=== PATIENT | female | born 1935 | race Caucasian/White ===

== ENCOUNTER 2017-02-01 23:44 | Inpatient (IN) | payer MEDICARE, OTHER ==
[2017-02-01] MEDS ORDERED: ALBUTEROL SULFATE 0.083% NEB 2.5 MG/3 ML AMPUL NEB ONE (23:56)
--- NOTE | 2017-02-02 00:01 | ER Document Report ---
ED General - General Stated Complaint: FLU LIKE SYMPTOMS Notes: Patient is a 81-year-old female who presents with complaint of cough congestion difficulty breathing. Symptoms started Saturday. Saturday she went to urgent care and had a positive influenza A swab. She says since and her breathing is greatly got worse. She does have a history of mechanical heart valve. She does have history of hypertension. She is on Coumadin. She is on carvedilol. When the months arrived she was restrained distress. She was working hard to breathe and her option patient was 90% on room air. They placed her on some oxygen and gave her DuoNeb treatments. They also gave her 125 mg Solu-Medrol. She did receive 4 mg Zofran. She also received 500 mL's of normal saline. She says she's been very weak and not eating or drinking much. She's been nauseous. No chest pain. No other complaints at this time. TRAVEL OUTSIDE OF THE [place] IN LAST 30 DAYS: No - Related Data Allergies/Adverse Reactions: lisinopril Allergy (Verified 02/02/17 01:47) Past Medical History - Social History Smoking Status: Never Smoker Frequency of alcohol use: None Drug Abuse: None Family History: Reviewed & Not Pertinent - Past Medical History Cardiac Medical History: Reports: Hx Hypertension Denies: Hx Heart Attack Pulmonary Medical History: Denies: Hx Asthma Neurological Medical History: Denies: Hx Cerebrovascular Accident, Hx Seizures GI Medical History: Denies: Hx Hepatitis, Hx Hiatal Hernia, Hx Ulcer Infectious Medical History: Denies: Hx Hepatitis Past Surgical History: Reports: Hx Open Heart Surgery - 2001, bypass x2 mechanical aortic valve. Denies: Hx Hysterectomy, Hx Mastectomy, Hx Pacemaker Review of Systems - Review of Systems Notes: My Normal Review Basic REVIEW OF SYSTEMS: CONSTITUTIONAL : Recent fevers EENT: Denies eye, ear, throat, or mouth pain or symptoms. Denies nasal or sinus congestion. CARDIOVASCULAR: Denies chest pain. RESPIRATORY: Wheezing and difficulty breathing and cough. GASTROINTESTINAL: Denies abdominal pain. Some vomiting Denies constipation. Last BM: GENITOURINARY: Denies difficulty urinating, painful urination, burning, frequency, or blood in urine.ds. LMP: MUSCULOSKELETAL: Denies neck or back pain or joint pain or swelling. SKIN: Denies rash or skin lesions. NEUROLOGICAL: Denies altered mental status or loss of consciousness. Denies headache. Denies weakness or paralysis or loss of use of either side. Denies problems with gait or speech. Denies sensory or motor loss. ALL OTHER SYSTEMS REVIEWED AND NEGATIVE. Physical Exam - Vital signs Vitals: Pulse Resp BP Pulse Ox 91 20 176/69 H 95 02/01/17 23:53 02/01/17 23:53 02/01/17 23:53 02/01/17 23:53 - Notes Notes: General Appearance: Well nourished, alert, cooperative, mild to moderate acute distress, no obvious discomfort. Vitals: reviewed, See vital signs table. Head: no swelling or tenderness to the head Eyes: PERRL, EOMI, Conjuctiva clear Mouth: No decreasd moisture Throat: No tonsillar inflammation, No airway obstruction, No lymphadenopathy Neck: Supple, no neck tenderness, No thyromegaly Lungs: Diffuse wheezing, some rales, No rhonci, mild accessory muscle use, fair air exchange bilaterally. Heart: Normal rate, Regular rythm, No murmur, no rub Abdomen: Normal BS, soft, No rigidity, No abdominal tenderness, No guarding, no rebound, no abdominal masses, no organomegaly Extremities: strength 5/5 in all extremities, good pulses in all extremities, no swelling or tenderness in the extremities, no edema. Skin: warm, dry, appropriate color, no rash Neuro: speech clear, oriented x 3, normal affect, responds appropriately to questions. Course - Vital Signs Vital signs: Temp Pulse Resp BP Pulse Ox 99.9 F 91 19 148/58 H 96 02/01/17 23:55 02/01/17 23:53 02/02/17 02:00 02/02/17 02:00 02/02/17 02:00 - Laboratory Result Diagrams: 02/02/17 00:21 02/02/17 00:21 Laboratory results interpreted by me: 02/02/17 02/02/17 02/02/17 00:21 00:21 00:21 Plt Count 121 L PT 30.4 H Sodium 127.6 L Chloride 93 L Glucose 121 H AST 37 H Total Protein 6.2 L - EKG Interpretation by Me Additional EKG results interpreted by me: 02/02/17 00:34 EKG is reviewed and interpreted by me. EKG shows normal sinus rhythm with a rate of [address] segment elevation or depression. HI interval is within normal range. QRS duration is prolonged. QTc interval is borderline. Old EKG for comparison is from 09/05/2015. - Transfer of Care Notes: 02/02/17 03:10 Patient's distress has improved. Her wheezing is gone but she still has rales. Her chest x-ray shows bilateral infiltrates. This could be international account representative of pulmonary edema, pneumonia, or early signs of impending ARDS being that she is recently influenza A positive. She is not requiring as much oxygen demand is when she first arrived. She appears to be improving. I have spoken with the hospitalist who agrees to admit the patient. I've given her a dose of Levaquin and Lasix. Dictation of this chart was performed using voice recognition software; therefore, there may be some unintended grammatical errors. Discharge - Discharge Clinical Impression: Respiratory distress Dyspnea Qualifiers: Dyspnea type: unspecified Qualified Code(s): R06.00 - Dyspnea, unspecified Condition: Stable Disposition: ADMITTED INPATIENT Admitting Provider: Hospitalist Unit Admitted: Telemetry
[2017-02-02] MEDS: MAGNESIUM SULFATE/D5W 100 ML IV SCH ×2 (00:13→00:20)
[2017-02-02] MEDS ORDERED: ONDANSETRON HCL INJ/PF 4 MG/2 ML SDV IV ONE (00:27)
[2017-02-02 00:39] LABS: ABSOLUTE LYMPHOCYTES (AUTO) 0.7 10^3/uL (0.5-4.7); ABSOLUTE MONOCYTES (AUTO) 0.5 10^3/uL (0.1-1.4); BASOPHILS % (AUTO) 0.4 % (0-2); EOSINOPHILS % (AUTO) 0.2 % (0-6); HEMATOCRIT 36.5 % (36.0-47.0); HEMOGLOBIN 12.5 g/dL (12.0-15.5); LYMPHOCYTES % (AUTO) 13.6 % (13-45); MEAN CORPUSCULAR HEMOGLOBIN 31.2 pg (27.0-33.4); MEAN CORPUSCULAR HGB CONC 34.3 g/dL (32.0-36.0); MEAN CORPUSCULAR VOLUME 91 fl (80-97); RED BLOOD COUNT 4.02 10^6/uL (3.72-5.28); RED CELL DISTRIBUTION WIDTH 12.5 % (11.5-14.0); SEGMENTED NEUTROPHILS % (AUTO) 76.8 % (42-78); WHITE BLOOD COUNT 5.2 10^3/uL (4.0-10.5)
[2017-02-02 00:45] LABS: PROTHROMBIN TIME 30.4 SEC (11.4-15.4)
[2017-02-02 00:48] LABS: ALANINE AMINOTRANSFERASE 35 U/L (9-52); ALBUMIN 3.6 g/dL (3.5-5.0); ALKALINE PHOSPHATASE 61 U/L (38-126); ANION GAP 9 (5-19); ASPARTATE AMINO TRANSFERASE 37 U/L (14-36); BILIRUBIN,DIRECT 0.1 mg/dL (0.0-0.4); BILIRUBIN,TOTAL 0.6 mg/dL (0.2-1.3); BLOOD UREA NITROGEN 13 mg/dL (7-20); CALCIUM 8.5 mg/dL (8.4-10.2); CARBON DIOXIDE 26 mmol/L (22-30); CHLORIDE 93 mmol/L (98-107); CREATININE RESULT 0.72 mg/dL (0.52-1.25); GLUCOSE 121 mg/dL (75-110); POTASSIUM 4.3 mmol/L (3.6-5.0); SODIUM 127.6 mmol/L (137-145); TOTAL PROTEIN 6.2 g/dL (6.3-8.2)
[2017-02-02] MEDS ORDERED: LEVOFLOXACIN 750 MG/D5W RTU 150 ML IV ONE (02:36)
[2017-02-02] MEDS ORDERED: FUROSEMIDE INJ/PF 20 MG/2 ML SDV IV ONE (03:10)
[2017-02-02] MEDS ORDERED: LORATADINE 10 MG TABLET PO ONE (03:16)
[2017-02-02 04:01] LABS: CREATINE KINASE MB 1.59 ng/mL (<4.55)
[2017-02-02 04:08] LABS: TROPONIN I 0.035 ng/mL
[2017-02-02] MEDS ORDERED: FLUTICASONE NASAL SPRAY 50 MCG/SPRY 120 SPRAY/16 GM ONE (04:24)
[2017-02-02] MEDS ORDERED: ACETAMINOPHEN 325 MG TABLET PO PRN (04:35)
[2017-02-02] MEDS ORDERED: IPRATROPIUM/ALBUTEROL 0.5-2.5 MG/3 ML AMPUL NEB PRN (04:35)
--- NOTE | 2017-02-02 05:34 | PDOC H&P ---
History of Present Illness Admission Date/PCP: 02/02/17 03:23 Patient complains of: Shortness of breath and cough History of Present Illness: ANGEL SMITH is a 81 year old female with a past medical history of aortic valve replacement on Coumadin, hypertension and dyslipidemia who had been her usual state of health until [facility] 4 days ago having diffuse arthralgias shortness of breath and cough sought evaluation at primary care where she was diagnosed with influenza A. she received medication for symptomatic management and is had improvement of her arthralgia but worsening of shortness of breath and cough prompting to seek evaluation emergency room where she's found to have a fever with tachypnea and an abnormal EKG with chronic changes of possible fibrosis and emphysema with atypical perihilar infiltrates. She started on empiric antibiotics albuterol and Atrovent referred to the hospitalist for admission. Patient denies previous pneumonia Past Medical History Cardiac Medical History: Reports: Atrial Fibrillation, Hypertension Denies: Myocardial Infarction Pulmonary Medical History: Denies: Asthma Neurological Medical History: Denies: Seizures GI Medical History: Denies: Hepatitis, Hiatal Hernia Hematology: Denies: Anemia, Sickle Cell Disease Past Surgical History Past Surgical History: Denies: Amputation, Hysterectomy, Mastectomy, Pacemaker Social History Information Source: Patient Lives with: Alone Smoking Status: Never Smoker Frequency of Alcohol Use: None Drugs: None - Advance Directive Resuscitation Status: Full Code Family History Family History: Hypertension Parental Family History Reviewed: Yes Children Family History Reviewed: Yes Sibling(s) Family History Reviewed.: Yes Medication/Allergy Home Medications: Aspirin [Aspirin 81 mg Chewable Tablet] 81 mg PO DAILY 11/23/11 Warfarin Sodium [Coumadin 5 Mg Tablet] 5 mg PO ASDIR PRN 11/23/11 Carvedilol [Coreg 25 mg Tablet] 1 tab PO Q12 03/28/14 Benzonatate 200 mg PO DAILY 02/02/17 Losartan Potassium 50 mg PO DAILY 02/02/17 Rosuvastatin Calcium [Crestor 5 mg Tablet] 1 tab PO DAILY 02/02/17 Warfarin Sodium [Coumadin 2.5 mg Tablet] 2.5 mg PO ASDIR PRN 02/02/17 Allergies/Adverse Reactions: lisinopril Allergy (Verified 02/02/17 01:47) Review of Systems Constitutional: PRESENT: as per HPI, anorexia, chills, fatigue, fever(s), night sweats, weakness Eyes: ABSENT: visual disturbances Ears: ABSENT: hearing changes Cardiovascular: ABSENT: chest pain, dyspnea on exertion, edema, orthropnea, palpitations Respiratory: PRESENT: cough, dyspnea, sputum Gastrointestinal: ABSENT: abdominal pain, constipation, diarrhea, hematemesis, hematochezia, nausea, vomiting Genitourinary: ABSENT: dysuria, hematuria Musculoskeletal: ABSENT: joint swelling Integumentary: ABSENT: rash, wounds Neurological: ABSENT: abnormal gait, abnormal speech, confusion, dizziness, focal weakness, syncope Psychiatric: ABSENT: anxiety, depression, homidical ideation, suicidal ideation Endocrine: ABSENT: cold intolerance, heat intolerance, polydipsia, polyuria Hematologic/Lymphatic: ABSENT: easy bleeding, easy bruising Physical Exam Vital Signs: Temp Pulse Resp BP Pulse Ox 99.9 F 91 21 H 148/52 H 97 02/01/17 23:55 02/01/17 23:53 02/02/17 05:01 02/02/17 05:01 02/02/17 05:02 General appearance: PRESENT: cooperative, mild distress, thin Head exam: PRESENT: atraumatic, normocephalic Eye exam: PRESENT: conjunctiva pink, EOMI, PERRLA. ABSENT: scleral icterus Ear exam: PRESENT: normal external ear exam Mouth exam: PRESENT: moist, tongue midline Neck exam: ABSENT: carotid bruit, JVD, lymphadenopathy, thyromegaly Respiratory exam: PRESENT: accessory muscle use, crackles, decreased breath sounds, prolonged expiratory phas, rales, retraction, symmetrical, tachypnea. ABSENT: chest wall tenderness, stridor, wheezes Cardiovascular exam: PRESENT: RRR, systolic murmur. ABSENT: diastolic murmur, rubs Pulses: PRESENT: normal dorsalis pedis pul Vascular exam: PRESENT: normal capillary refill GI/Abdominal exam: PRESENT: normal bowel sounds, soft. ABSENT: distended, guarding, mass, organolmegaly, rebound, tenderness Rectal exam: PRESENT: deferred Extremities exam: PRESENT: full ROM. ABSENT: calf tenderness, clubbing, pedal edema Neurological exam: PRESENT: alert, awake, oriented to person, oriented to place , oriented to time, oriented to situation, CN II-XII grossly intact. ABSENT: motor sensory deficit Psychiatric exam: PRESENT: appropriate affect, normal mood. ABSENT: homicidal ideation, suicidal ideation Skin exam: PRESENT: dry, intact, warm. ABSENT: cyanosis, rash Results Impressions: Chest X-Ray 02/02/17 00:00 IMPRESSION: The appearance of increased interstitial markings is nonspecific, and may represent atypical pneumonitis, early CHF pattern, pulmonary fibrosis, or other. Assessment & Plan - Diagnosis (1) Atypical pneumonia Is this a current diagnosis for this admission?: YesPlan: Empiric antibiotics with Levaquin albuterol Atrovent, symptomatic management with repeat CBC and chemistry consider CT imaging of the chest (2) Dyspnea Qualifiers: Dyspnea type: unspecified Qualified Code(s): R06.00 - Dyspnea, unspecified Is this a current diagnosis for this admission?: YesPlan: Secondary to #1 incentive spirometry and flutter valve (3) Respiratory distress Is this a current diagnosis for this admission?: YesPlan: Secondary to #1 concerned for atypical pneumonia versus pulmonary fibrosis consider imaging of the chest (4) Hyponatremia Is this a current diagnosis for this admission?: YesPlan: I'll give her a trial of normal saline I am suspicious for an underlying pulmonary pathology as a likely cause consider CT imaging of the chest - Time Time Spent: 30 to 50 Minutes - Inpatient Certification Medical Necessity: Need Close Monitoring Due to Risk of Patient Decompensation
[2017-02-02 06:17] LABS: ABSOLUTE LYMPHOCYTES (AUTO) 0.4 10^3/uL (0.5-4.7); ABSOLUTE MONOCYTES (AUTO) 0.1 10^3/uL (0.1-1.4); ABSOLUTE NEUT (AUTO) 3.2 10^3/uL (1.7-8.2); BASOPHILS % (AUTO) 0.5 % (0-2); EOSINOPHILS % (AUTO) 0.1 % (0-6); HEMATOCRIT 38.6 % (36.0-47.0); HEMOGLOBIN 13.5 g/dL (12.0-15.5); HGB HCT DIFFERENCE 1.9; LYMPHOCYTES % (AUTO) 11.4 % (13-45); MEAN CORPUSCULAR HEMOGLOBIN 31.5 pg (27.0-33.4); MEAN CORPUSCULAR VOLUME 90 fl (80-97); MONOCYTES % (AUTO) 3.3 % (3-13); RED BLOOD COUNT 4.28 10^6/uL (3.72-5.28); RED CELL DISTRIBUTION WIDTH 12.8 % (11.5-14.0); SEGMENTED NEUTROPHILS % (AUTO) 84.7 % (42-78); WHITE BLOOD COUNT 3.8 10^3/uL (4.0-10.5)
[2017-02-02] MEDS ORDERED: IPRATROPIUM/ALBUTEROL 0.5-2.5 MG/3 ML AMPUL NEB SCH (08:00)
[2017-02-02] MEDS: CARVEDILOL 12.5 MG TABLET PO SCH ×2 (08:24→16:11)
[2017-02-02 09:23] LABS: CREATINE KINASE MB 2.92 ng/mL (<4.55); TROPONIN I 0.057 ng/mL
[2017-02-02] MEDS ORDERED: LOSARTAN POTASSIUM 50 MG TABLET PO SCH (10:00)
[2017-02-02] MEDS ORDERED: ROSUVASTATIN CALCIUM PO SCH (10:00)
[2017-02-02] MEDS ORDERED: (PENDING PHARMACY ID) (Carvedilol [Coreg 25 Mg Tablet] 1 TAB) PO SCH (10:00)
[2017-02-02] MEDS ORDERED: ASPIRIN 81 MG TABLET, CHEWABLE PO SCH (10:00)
[2017-02-02] MEDS ORDERED: (PENDING PHARMACY ID) (Warfarin Sodium 5 MG) PO SCH (10:00)
[2017-02-02] MEDS: EPLERENONE 25 MG TABLET PO SCH (10:03)
[2017-02-02] MEDS: GUAIFENESIN 600 MG TABLET.SA PO SCH ×2 (10:04→21:42)
[2017-02-02] MEDS: FLUTICASONE NASAL SPRAY 50 MCG/SPRY 120 SPRAY/16 GM NASL SCH ×2 (10:05→21:42)
[2017-02-02] MEDS ORDERED: ALBUTEROL SULFATE 0.083% NEB 2.5 MG/3 ML AMPUL NEB PRN (10:54)
--- NOTE | 2017-02-02 11:04 | PDOC PROGRESS REPORT ---
Subjective Progress Note for:: 02/02/17 Subjective:: The patient was seen earlier today on rounds. Patient is out of bed to the bedside chair. The patient states she feels much improved in comparison to when she came in overnight. denies any history of chronic lung issues stating that she stop smoking in the early 80s when she last had influenza. Still unable to fully complete sentences. The patient denies any nausea, vomiting, diarrhea, dizziness, chest pain, heart palpitations, fevers, or chills. The patient has remained afebrile. Blood pressures have been in a good range. When prompted the patient voices no other concerns at this time. Review of systems: The rest of the review of systems is negative. Physical Exam Vital Signs: Temp Pulse Resp BP Pulse Ox 98.1 F 65 16 145/44 H 93 02/02/17 07:45 02/02/17 08:06 02/02/17 08:06 02/02/17 07:45 02/02/17 08:06 Intake & Output 01/31/17 02/01/17 02/02/17 23:59 23:59 23:59 Intake Total 3 Balance 3 Weight 52.7 kg General appearance: PRESENT: no acute distress, cooperative, well-developed, well-nourished Head exam: PRESENT: atraumatic, normocephalic Eye exam: PRESENT: conjunctiva pink, EOMI, PERRLA. ABSENT: scleral icterus Ear exam: PRESENT: normal external ear exam Mouth exam: PRESENT: moist, tongue midline Neck exam: ABSENT: carotid bruit, JVD, lymphadenopathy, thyromegaly Respiratory exam: PRESENT: decreased breath sounds, symmetrical, tachypnea, wheezes. ABSENT: rales, rhonchi, unlabored Cardiovascular exam: PRESENT: RRR. ABSENT: diastolic murmur, rubs, systolic murmur Pulses: PRESENT: normal dorsalis pedis pul Vascular exam: PRESENT: normal capillary refill GI/Abdominal exam: PRESENT: normal bowel sounds, soft. ABSENT: distended, guarding, mass, organolmegaly, rebound, tenderness Rectal exam: PRESENT: deferred Extremities exam: PRESENT: full ROM. ABSENT: calf tenderness, clubbing, pedal edema Neurological exam: PRESENT: alert, awake, oriented to person, oriented to place , oriented to time, oriented to situation, CN II-XII grossly intact. ABSENT: motor sensory deficit Psychiatric exam: PRESENT: appropriate affect, normal mood. ABSENT: homicidal ideation, suicidal ideation Skin exam: PRESENT: dry, intact, warm. ABSENT: cyanosis, rash Results Laboratory Results: Labs- Last Values WBC 3.8 10^3/uL (4.0-10.5) L 02/02/17 06:00 RBC 4.28 10^6/uL (3.72-5.28) 02/02/17 06:00 Hgb 13.5 g/dL (12.0-15.5) 02/02/17 06:00 Hct 38.6 % (36.0-47.0) 02/02/17 06:00 MCV 90 fl (80-97) 02/02/17 06:00 MCH 31.5 pg (27.0-33.4) 02/02/17 06:00 MCHC 35.0 g/dL (32.0-36.0) 02/02/17 06:00 RDW 12.8 % (11.5-14.0) 02/02/17 06:00 Plt Count 124 10^3/uL (150-450) L 02/02/17 06:00 Seg Neutrophils % 84.7 % (42-78) H 02/02/17 06:00 Lymphocytes % 11.4 % (13-45) L 02/02/17 06:00 Monocytes % 3.3 % (3-13) 02/02/17 06:00 Eosinophils % 0.1 % (0-6) 02/02/17 06:00 Basophils % 0.5 % (0-2) 02/02/17 06:00 Absolute Neutrophils 3.2 10^3/uL (1.7-8.2) 02/02/17 06:00 Absolute Lymphocytes 0.4 10^3/uL (0.5-4.7) L 02/02/17 06:00 Absolute Monocytes 0.1 10^3/uL (0.1-1.4) 02/02/17 06:00 Absolute Eosinophils 0.0 10^3/uL (0.0-0.6) 02/02/17 06:00 Absolute Basophils 0.0 10^3/uL (0.0-0.2) 02/02/17 06:00 ESR 40 mm/hr (0-30) H 02/02/17 06:00 PT 30.4 SEC (11.4-15.4) H 02/02/17 00:21 INR 2.76 02/02/17 00:21 Sodium 127.6 mmol/L (137-145) L 02/02/17 00:21 Potassium 4.3 mmol/L (3.6-5.0) 02/02/17 00:21 Chloride 93 mmol/L (98-107) L 02/02/17 00:21 Carbon Dioxide 26 mmol/L (22-30) 02/02/17 00:21 Anion Gap 9 (5-19) 02/02/17 00:21 BUN 13 mg/dL (7-20) 02/02/17 00:21 Creatinine 0.72 mg/dL (0.52-1.25) 02/02/17 00:21 Est GFR ( Amer) > 60 (>60) 02/02/17 00:21 Est GFR (Non-Af Amer) > 60 (>60) 02/02/17 00:21 Glucose 121 mg/dL (75-110) H 02/02/17 00:21 Calcium 8.5 mg/dL (8.4-10.2) 02/02/17 00:21 Total Bilirubin 0.6 mg/dL (0.2-1.3) 02/02/17 00:21 Direct Bilirubin 0.1 mg/dL (0.0-0.4) 02/02/17 00:21 Indirect Bilirubin Not Reportable 02/02/17 00:21 Neonat Total Bilirubin Not Reportable 02/02/17 00:21 AST 37 U/L (14-36) H 02/02/17 00:21 ALT 35 U/L (9-52) 02/02/17 00:21 Alkaline Phosphatase 61 U/L (38-126) 02/02/17 00:21 Creatine Kinase 242 U/L (30-135) H 02/02/17 08:32 CK-MB (CK-2) 2.92 ng/mL (<4.55) 02/02/17 08:32 Troponin I 0.057 ng/mL 02/02/17 08:32 NT-Pro-B Natriuret Pep 3870 pg/mL (<450) H 02/02/17 00:21 Total Protein 6.2 g/dL (6.3-8.2) L 02/02/17 00:21 Albumin 3.6 g/dL (3.5-5.0) 02/02/17 00:21 Impressions: Chest X-Ray 02/02/17 00:00 IMPRESSION: The appearance of increased interstitial markings is nonspecific, and may represent atypical pneumonitis, early CHF pattern, pulmonary fibrosis, or other. Assessment & Plan - Diagnosis (1) Atypical pneumonia Is this a current diagnosis for this admission?: YesPlan: Possibly secondary to influenza. Upon review of the patient's previous chest x- ray there are new findings. Will obtain CT for further differentiation. In the meantime will continue current medications. (2) Coronary artery disease Qualifiers: Coronary Disease-Associated Artery/Lesion type: [place] artery [place] vs. transplanted heart: [place] heart Associated angina: without angina Qualified Code(s): I25.10 - Atherosclerotic heart disease of [place] coronary artery without angina pectoris Is this a current diagnosis for this admission?: YesPlan: Will continue patient's home medications. Uncertain of the patient's last echocardiogram. Given the patient's symptoms will obtain echocardiogram. (3) Hyponatremia Is this a current diagnosis for this admission?: YesPlan: It appears the patient may be volume up. Will gently diurese. Will repeat chemistries in the a.m. (4) H/O aortic valve replacement Is this a current diagnosis for this admission?: YesPlan: INR is therapeutic. (5) DVT prophylaxis Is this a current diagnosis for this admission?: YesPlan: The patient is effectively anticoagulated with Coumadin. - Time Time Spent with patient: 35 or more minutes Medications reviewed and adjusted accordingly: Yes Anticipated discharge: Home Within: within 24 hours, within 48 hours
[2017-02-02] MEDS ORDERED: FUROSEMIDE INJ/PF 40 MG/4 ML SDV IV ONE (11:30)
--- NOTE | 2017-02-02 12:38 | EKG REPORT ---
SEVERITY:- ABNORMAL ECG - SINUS RHYTHM INCOMPLETE LEFT BUNDLE BRANCH BLOCK ANTERIOR INFARCT, AGE INDETERMINATE : Confirmed by: Herber Morrison 02-Feb-2017 12:37:24
[2017-02-02 17:21] LABS: CREATINE KINASE MB 3.85 ng/mL (<4.55); TROPONIN I 0.021 ng/mL
[2017-02-02] MEDS: WARFARIN SODIUM 5 MG TABLET PO SCH (21:42)
[2017-02-02] MEDS: ATORVASTATIN CALCIUM 10 MG TABLET PO SCH (21:42)
[2017-02-03 05:45] LABS: ABSOLUTE LYMPHOCYTES (AUTO) 0.8 10^3/uL (0.5-4.7); ABSOLUTE MONOCYTES (AUTO) 0.8 10^3/uL (0.1-1.4); BASOPHILS % (AUTO) 0.6 % (0-2); HEMATOCRIT 40.2 % (36.0-47.0); HGB HCT DIFFERENCE 1.8; LYMPHOCYTES % (AUTO) 9.8 % (13-45); MEAN CORPUSCULAR HEMOGLOBIN 31.3 pg (27.0-33.4); MEAN CORPUSCULAR HGB CONC 34.8 g/dL (32.0-36.0); MEAN CORPUSCULAR VOLUME 90 fl (80-97); MONOCYTES % (AUTO) 8.8 % (3-13); RED BLOOD COUNT 4.47 10^6/uL (3.72-5.28); RED CELL DISTRIBUTION WIDTH 12.6 % (11.5-14.0); SEGMENTED NEUTROPHILS % (AUTO) 80.8 % (42-78)
[2017-02-03 06:09] LABS: WHITE BLOOD COUNT 8.6 10^3/uL (4.0-10.5)
[2017-02-03 06:31] LABS: PROTHROMBIN TIME 32.3 SEC (11.4-15.4)
[2017-02-03 06:58] LABS: ANION GAP 12 (5-19); BLOOD UREA NITROGEN 25 mg/dL (7-20); CALCIUM 8.5 mg/dL (8.4-10.2); CARBON DIOXIDE 26 mmol/L (22-30); CHLORIDE 93 mmol/L (98-107); CREATININE RESULT 0.89 mg/dL (0.52-1.25); GLUCOSE 141 mg/dL (75-110); SODIUM 130.8 mmol/L (137-145)
[2017-02-03 07:34] LABS: MAGNESIUM 2.1 mg/dL (1.6-2.3)
[2017-02-03] MEDS: CARVEDILOL 12.5 MG TABLET PO SCH ×2 (08:05→21:48)
[2017-02-03] MEDS ORDERED: DIAZEPAM 5 MG TABLET PO PRN (10:00)
[2017-02-03] MEDS ORDERED: TRAMADOL HCL 50 MG TABLET PO PRN (10:00)
--- NOTE | 2017-02-03 10:23 | PDOC PROGRESS REPORT ---
Subjective Progress Note for:: 02/03/17 Subjective:: The patient was seen earlier today on rounds. Patient is currently lying In bed. The patient states she feels much improved in comparison. The patient states that she does feel a little lightheaded today. Patient denies any history of chronic lung issues stating that she stop smoking in the early 80s when she last had influenza. Now able to fully complete sentences. The patient 's symptoms did improve with diuresis. The patient denies any nausea, vomiting , diarrhea, dizziness, chest pain, heart palpitations, fevers, or chills. The patient has remained afebrile. Blood pressures have been in a good range. When prompted the patient voices no other concerns at this time. Review of systems: The rest of the review of systems is negative. Physical Exam Vital Signs: Temp Pulse Resp BP Pulse Ox 97.8 F 61 13 164/59 H 93 02/03/17 07:53 02/03/17 07:53 02/03/17 07:53 02/03/17 07:53 02/03/17 07:53 Intake & Output 02/01/17 02/02/17 02/03/17 23:59 23:59 23:59 Intake Total 570 360 Balance 570 360 Weight 52.7 kg 54.2 kg General appearance: PRESENT: no acute distress, cooperative, well-developed, well-nourished Head exam: PRESENT: atraumatic, normocephalic Eye exam: PRESENT: conjunctiva pink, EOMI, PERRLA. ABSENT: scleral icterus Ear exam: PRESENT: normal external ear exam Mouth exam: PRESENT: moist, tongue midline Neck exam: ABSENT: carotid bruit, JVD, lymphadenopathy, thyromegaly Respiratory exam: PRESENT: decreased breath sounds, symmetrical. ABSENT: rales , rhonchi, unlabored Cardiovascular exam: PRESENT: RRR. ABSENT: diastolic murmur, rubs, systolic murmur Pulses: PRESENT: normal dorsalis pedis pul Vascular exam: PRESENT: normal capillary refill GI/Abdominal exam: PRESENT: normal bowel sounds, soft. ABSENT: distended, guarding, mass, organolmegaly, rebound, tenderness Rectal exam: PRESENT: deferred Extremities exam: PRESENT: full ROM, +1 bilateral lower extremity pitting edema. ABSENT: calf tenderness, clubbing. Neurological exam: PRESENT: alert, awake, oriented to person, oriented to place , oriented to time, oriented to situation, CN II-XII grossly intact. ABSENT: motor sensory deficit Psychiatric exam: PRESENT: appropriate affect, normal mood. ABSENT: homicidal ideation, suicidal ideation Skin exam: PRESENT: dry, intact, warm. ABSENT: cyanosis, rash Results Laboratory Results: 02/03/17 05:03 02/03/17 06:09 02/03/17 02/03/17 05:03 06:09 WBC 8.6 D RBC 4.47 Hgb 14.0 Hct 40.2 MCV 90 MCH 31.3 MCHC 34.8 RDW 12.6 Plt Count 123 L Seg Neutrophils % 80.8 H Lymphocytes % 9.8 L Monocytes % 8.8 Eosinophils % 0.0 Basophils % 0.6 Absolute Neutrophils 7.0 Absolute Lymphocytes 0.8 Absolute Monocytes 0.8 Absolute Eosinophils 0.0 Absolute Basophils 0.0 Sodium 130.8 L Potassium 4.0 Chloride 93 L Carbon Dioxide 26 Anion Gap 12 BUN 25 H Creatinine 0.89 Est GFR ( Amer) > 60 Est GFR (Non-Af Amer) > 60 Glucose 141 H Calcium 8.5 Magnesium 2.1 02/02/17 02/02/17 02/02/17 08:32 08:32 16:40 Creatine Kinase 242 H 215 H CK-MB (CK-2) 2.92 Troponin I 0.057 02/02/17 16:40 Creatine Kinase CK-MB (CK-2) 3.85 Troponin I 0.021 Impressions: Chest CT 02/02/17 00:00 IMPRESSION: 1. SMALL PLEURAL EFFUSIONS. OTHERWISE UNREMARKABLE CT OF THE CHEST. NO SIGNIFICANT LUNG PARENCHYMAL FINDINGS. 2. PROBABLE HEPATIC CYSTS. Chest X-Ray 02/02/17 00:00 IMPRESSION: The appearance of increased interstitial markings is nonspecific, and may represent atypical pneumonitis, early CHF pattern, pulmonary fibrosis, or other. Assessment & Plan - Diagnosis (1) Acute on chronic systolic (congestive) heart failure Is this a current diagnosis for this admission?: YesPlan: Evidence of pleural effusions on CT scan. Currently awaiting echocardiogram. Diurese yet again today. (2) Coronary artery disease Qualifiers: Coronary Disease-Associated Artery/Lesion type: [place] artery [place] vs. transplanted heart: [place] heart Associated angina: without angina Qualified Code(s): I25.10 - Atherosclerotic heart disease of [place] coronary artery without angina pectoris Is this a current diagnosis for this admission?: YesPlan: Will continue patient's home medications. (3) Hyponatremia Is this a current diagnosis for this admission?: YesPlan: It appears the patient may be volume up. Will gently diurese. Will repeat chemistries in the a.m. (4) H/O aortic valve replacement Is this a current diagnosis for this admission?: YesPlan: INR is therapeutic. (5) DVT prophylaxis Is this a current diagnosis for this admission?: YesPlan: The patient is effectively anticoagulated with Coumadin. - Time Time Spent with patient: 25-34 minutes Medications reviewed and adjusted accordingly: Yes Anticipated discharge: Home Within: within 24 hours, within 48 hours
[2017-02-03] MEDS ORDERED: FUROSEMIDE INJ/PF 40 MG/4 ML SDV IV ONE (11:00)
[2017-02-03] MEDS: GUAIFENESIN SYRP 200 MG/10 ML UDC PO PRN (11:07)
[2017-02-03] MEDS: LOSARTAN POTASSIUM 50 MG TABLET PO SCH (11:08)
[2017-02-03] MEDS: ASPIRIN 81 MG TABLET, CHEWABLE PO SCH (11:08)
[2017-02-03] MEDS: EPLERENONE 25 MG TABLET PO SCH (11:09)
[2017-02-03] MEDS: FLUTICASONE NASAL SPRAY 50 MCG/SPRY 120 SPRAY/16 GM NASL SCH ×2 (11:09→21:48)
[2017-02-03] MEDS: ONDANSETRON 4 MG TAB.RAPDIS PO PRN ×2 (15:54→21:47)
[2017-02-03] MEDS ORDERED: FUROSEMIDE INJ/PF 40 MG/4 ML SDV IV SCH (16:00)
[2017-02-03] MEDS: WARFARIN SODIUM 5 MG TABLET PO SCH (21:48)
[2017-02-03] MEDS: ATORVASTATIN CALCIUM 10 MG TABLET PO SCH (21:48)
[2017-02-04 05:12] LABS: ANION GAP 11 (5-19); BLOOD UREA NITROGEN 39 mg/dL (7-20); CALCIUM 8.6 mg/dL (8.4-10.2); CARBON DIOXIDE 31 mmol/L (22-30); CHLORIDE 89 mmol/L (98-107); CREATININE RESULT 1.21 mg/dL (0.52-1.25); GLUCOSE 109 mg/dL (75-110); SODIUM 131.3 mmol/L (137-145)
--- NOTE | 2017-02-04 11:19 | PDOC PROGRESS REPORT ---
Subjective Progress Note for:: 02/04/17 Subjective:: The patient was seen earlier today on rounds. Patient is currently lying In bed. The patient states she feels much improved in comparison. The patient states that she does feel a tired. Does admit to productive cough. Patient denies any history of chronic lung issues stating that she stop smoking in the early 80s when she last had influenza. Now able to fully complete sentences. The patient's symptoms did improve with diuresis. The patient denies any nausea , vomiting, diarrhea, dizziness, chest pain, heart palpitations, fevers, or chills. The patient has remained afebrile. Blood pressures have been in a good range. When prompted the patient voices no other concerns at this time. Review of systems: The rest of the review of systems is negative. Physical Exam Vital Signs: Temp Pulse Resp BP Pulse Ox 98.1 F 56 L 16 149/53 H 99 02/04/17 07:10 02/04/17 07:10 02/04/17 07:10 02/04/17 07:10 02/04/17 07:10 Intake & Output 02/02/17 02/03/17 02/04/17 23:59 23:59 23:59 Intake Total 570 1155 85 Balance 570 1155 85 Weight 52.7 kg 54.2 kg 52.7 kg General appearance: PRESENT: no acute distress, cooperative, well-developed, well-nourished Head exam: PRESENT: atraumatic, normocephalic Eye exam: PRESENT: conjunctiva pink, EOMI, PERRLA. ABSENT: scleral icterus Ear exam: PRESENT: normal external ear exam Mouth exam: PRESENT: moist, tongue midline Neck exam: ABSENT: carotid bruit, JVD, lymphadenopathy, thyromegaly Respiratory exam: PRESENT: crackles - Bilateral basal crackles, symmetrical, unlabored. ABSENT: rales, rhonchi, tachypnea Cardiovascular exam: PRESENT: RRR. ABSENT: diastolic murmur, rubs, systolic murmur Pulses: PRESENT: normal dorsalis pedis pul Vascular exam: PRESENT: normal capillary refill GI/Abdominal exam: PRESENT: normal bowel sounds, soft. ABSENT: distended, guarding, mass, organolmegaly, rebound, tenderness Rectal exam: PRESENT: deferred Extremities exam: PRESENT: full ROM. ABSENT: calf tenderness, clubbing, pedal edema Neurological exam: PRESENT: alert, awake, oriented to person, oriented to place , oriented to time, oriented to situation, CN II-XII grossly intact. ABSENT: motor sensory deficit Psychiatric exam: PRESENT: appropriate affect, normal mood. ABSENT: homicidal ideation, suicidal ideation Skin exam: PRESENT: dry, intact, warm. ABSENT: cyanosis, rash Results Laboratory Results: 02/03/17 05:03 02/04/17 04:00 02/04/17 04:00 Sodium 131.3 L Potassium 4.0 Chloride 89 L Carbon Dioxide 31 H Anion Gap 11 BUN 39 H Creatinine 1.21 Est GFR ( Amer) 52 L Est GFR (Non-Af Amer) 43 L Glucose 109 Calcium 8.6 Magnesium 2.0 02/02/17 17:37 Sputum Gram Stain - Final 02/02/17 17:37 Sputum Sputum Culture - Final NORMAL SUMANTH 02/02/17 02/02/17 02/02/17 08:32 08:32 16:40 Creatine Kinase 242 H 215 H CK-MB (CK-2) 2.92 Troponin I 0.057 02/02/17 16:40 Creatine Kinase CK-MB (CK-2) 3.85 Troponin I 0.021 Impressions: Chest CT 02/02/17 00:00 IMPRESSION: 1. SMALL PLEURAL EFFUSIONS. OTHERWISE UNREMARKABLE CT OF THE CHEST. NO SIGNIFICANT LUNG PARENCHYMAL FINDINGS. 2. PROBABLE HEPATIC CYSTS. Chest X-Ray 02/02/17 00:00 IMPRESSION: The appearance of increased interstitial markings is nonspecific, and may represent atypical pneumonitis, early CHF pattern, pulmonary fibrosis, or other. Assessment & Plan - Diagnosis (1) Acute on chronic systolic (congestive) heart failure Is this a current diagnosis for this admission?: YesPlan: Evidence of pleural effusions on CT scan. Currently awaiting echocardiogram. Diurese yet again today. (2) Coronary artery disease Qualifiers: Coronary Disease-Associated Artery/Lesion type: [place] artery [place] vs. transplanted heart: [place] heart Associated angina: without angina Qualified Code(s): I25.10 - Atherosclerotic heart disease of [place] coronary artery without angina pectoris Is this a current diagnosis for this admission?: YesPlan: Will continue patient's home medications. (3) Hyponatremia Is this a current diagnosis for this admission?: YesPlan: It appears the patient may be volume up. Will gently diurese. Will repeat chemistries in the a.m. (4) H/O aortic valve replacement Is this a current diagnosis for this admission?: YesPlan: INR is therapeutic. (5) DVT prophylaxis Is this a current diagnosis for this admission?: YesPlan: The patient is effectively anticoagulated with Coumadin. - Time Time Spent with patient: 25-34 minutes Medications reviewed and adjusted accordingly: Yes Anticipated discharge: Home Within: within 24 hours, within 48 hours Disposition: The patient is a full code. Pending patient's symptomatology and diagnostic findings will reevaluate in the a.m.
[2017-02-04] MEDS ORDERED: FUROSEMIDE INJ/PF 40 MG/4 ML SDV IV ONE (12:00)
[2017-02-04] MEDS: ASPIRIN 81 MG TABLET, CHEWABLE PO SCH (12:14)
[2017-02-04] MEDS: FLUTICASONE NASAL SPRAY 50 MCG/SPRY 120 SPRAY/16 GM NASL SCH ×2 (12:15→21:11)
[2017-02-04] MEDS: EPLERENONE 25 MG TABLET PO SCH (12:15)
[2017-02-04] MEDS: CARVEDILOL 12.5 MG TABLET PO SCH ×2 (12:17→21:11)
[2017-02-04] MEDS: LOSARTAN POTASSIUM 50 MG TABLET PO SCH (12:18)
[2017-02-04] MEDS: WARFARIN SODIUM 5 MG TABLET PO SCH (21:11)
[2017-02-04] MEDS: ATORVASTATIN CALCIUM 10 MG TABLET PO SCH (21:11)
--- NOTE | 2017-02-04 21:19 | XCELERA REPORT ---
[address] [address] Transthoracic Echocardiogram Report Name: ANGEL SMITH V Age: 81 yrs Gender: Female : 1935 Patient Status: Inpatient Patient Location: [id number]\S\302\S\A Study Date: 02/04/2017 09:02 AM Height: 61 in Weight: 116 lb BSA: 1.5 m2 Procedure: A complete two-dimensional transthoracic echocardiogram was performed (2D, M-mode, spectral and color flow Doppler). The study was technically difficult with many images being suboptimal in quality. Reason For Study: Rales, dyspnea, cough Ordering Physician: REJI LUCIA Performed By: Becky Rice Interpretation Summary The Ejection Fraction estimate is 50-55% Left ventricular systolic function is borderline reduced. There is mild concentric left ventricular hypertrophy. The left ventricle is grossly normal size. Doppler measurements suggest pseudonormalized left ventricular relaxation, which is associated with grade II/IV or mild to moderate diastolic dysfunction Wall motion cannot be accurately commented on, but no definite regional wall motion abnormalities noted. The right ventricular systolic function is normal. The left atrium is mildly dilated. The right atrium is normal in size There is a mild amount of mitral regurgitation There is mild mitral stenosis. Sub valvular calcification noted. There is mild aortic stenosis There is a peak gradient of 20-25 mm of Hg. There is a trace amount of aortic regurgitation There is a mild amount of tricuspid regurgitation Right ventricular systolic pressure is at the upper limits of normal There is no pericardial effusion. MMode/2D Measurements \T\ Calculations RVDd: 2.5 cm LVIDd: 4.5 cm FS: 25.5 % Ao root diam: 2.3 cm IVSd: 1.1 cm LVIDs: 3.4 cm EDV(Teich): 93.1 ml LVPWd: 0.98 cmESV(Teich): 46.3 ml Ao root area: 4.2 cm2 EF(Teich): 50.3 % LA dimension: 3.5 cm LVOT diam: 2.2 cm LVOT area: 4.0 cm2 Doppler Measurements \T\ Calculations MV E max gabbie: MV V2 max: MV P1/2t max gabbie: Ao V2 max: 125.4 cm/sec 127.3 cm/sec 125.9 cm/sec 217.7 cm/sec MV A max gabbie: MV max PG: MV P1/2t: 88.0 msec Ao max P.8 cm/sec 6.5 mmHg MVA(P1/2t): 2.5 cm2 19.0 mmHg MV E/A: 0.97 MV V2 mean: MV dec slope: Ao V2 mean: 62.6 cm/sec 418.9 cm/sec2 155.0 cm/sec MV mean PG: MV dec time: 0.29 secAo mean P.0 mmHg 10.9 mmHg MV V2 VTI: Ao V2 VTI: 42.1 cm 52.9 cm MVA(VTI): 2.3 cm2 ANGIE(I,D): 1.8 cm2 ANGIE(V,D): 1.8 cm2 LV V1 max PG: SV(LVOT): 97.6 mlPA V2 max: TR max gabbie: 3.7 mmHg 96.3 cm/sec 269.1 cm/sec LV V1 mean PG: PA max P.7 mmHg TR max P.1 mmHg 29.0 mmHg LV V1 max: 96.7 cm/sec LV V1 mean: 66.5 cm/sec LV V1 VTI: 24.6 cm Left Ventricle The left ventricle is grossly normal size. There is mild concentric left ventricular hypertrophy. Left ventricular systolic function is borderline reduced. The Ejection Fraction estimate is 50-55%. Doppler measurements suggest pseudonormalized left ventricular relaxation, which is associated with grade II/IV or mild to moderate diastolic dysfunction. Wall motion cannot be accurately commented on, but no definite regional wall motion abnormalities noted. Right Ventricle The right ventricle is grossly normal size. There is normal right ventricular wall thickness. The right ventricular systolic function is normal. Atria The right atrium is normal in size. The left atrium is mildly dilated. Interarterial septum not well visualized and not well dopplered. Cannot comment on ASD/PFO presence. Mitral Valve There is moderate mitral leaflet calcification. There is moderate mitral annular calcification. There is mild mitral stenosis. There is a mild amount of mitral regurgitation. Aortic Valve The aortic valve is not well visualized secondary to technical limitations. The aortic valve is moderately calcified. There is mild aortic stenosis. There is a peak gradient of 20-25 mm of Hg. There is a trace amount of aortic regurgitation. Tricuspid Valve The tricuspid valve is not well visualized secondary to technical limitations. There is no tricuspid stenosis. There is a mild amount of tricuspid regurgitation. Right ventricular systolic pressure is at the upper limits of normal. Pulmonic Valve The pulmonic valve is not well visualized. Great Vessels The aortic root is not well visualized. The inferior vena cava was not well visualized. Effusions There is no pericardial effusion. : REJI LUCIA > Herber Morrison
[2017-02-05] MEDS: CARVEDILOL 12.5 MG TABLET PO SCH ×2 (09:31→21:52)
[2017-02-05] MEDS: FLUTICASONE NASAL SPRAY 50 MCG/SPRY 120 SPRAY/16 GM NASL SCH ×2 (09:32→21:52)
[2017-02-05] MEDS: ASPIRIN 81 MG TABLET, CHEWABLE PO SCH (09:32)
[2017-02-05] MEDS: LOSARTAN POTASSIUM 50 MG TABLET PO SCH (09:32)
[2017-02-05] MEDS: EPLERENONE 25 MG TABLET PO SCH (09:32)
[2017-02-05] MEDS ORDERED: FUROSEMIDE INJ/PF 20 MG/2 ML SDV IV ONE (11:52)
--- NOTE | 2017-02-05 11:58 | PDOC PROGRESS REPORT ---
Subjective Progress Note for:: 02/05/17 Subjective:: The patient was seen earlier today on rounds. Patient is currently lying In bed. The patient states she feels much improved in comparison to my breathing standpoint. The patient states that she does feel a tired and feels she cannot even dress herself. Patient denies any history of chronic lung issues stating that she stop smoking in the early 80s when she last had influenza. Now able to fully complete sentences. The patient's symptoms did improve with diuresis. The patient denies any nausea, vomiting, diarrhea, dizziness, chest pain, heart palpitations, fevers, or chills. The patient has remained afebrile. Blood pressures have been in a good range. When prompted the patient voices no other concerns at this time. Review of systems: The rest of the review of systems is negative. Brief history: Ms. Cline is 81-year-old female with a past medical history of aortic valve replacement. The patient presented to the emergency department with a chief complaint of shortness of breath. The patient had been treated outpatient basis for influenza. Initially it was felt the patient may have pneumonia secondary to influenza however it appears that she was actually volume overloaded. Patient has responded well to diuresis. 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 Physical Exam Vital Signs: Temp Pulse Resp BP Pulse Ox 98.3 F 65 20 133/58 H 97 02/05/17 07:19 02/05/17 07:19 02/05/17 07:19 02/05/17 07:19 02/05/17 07:19 Intake & Output 02/03/17 02/04/17 02/05/17 23:59 23:59 23:59 Intake Total 1155 1702 1091 Balance 1155 1702 1091 Weight 54.2 kg 52.7 kg 51.5 kg General appearance: PRESENT: no acute distress, cooperative, well-developed, well-nourished Head exam: PRESENT: atraumatic, normocephalic Eye exam: PRESENT: conjunctiva pink, EOMI, PERRLA. ABSENT: scleral icterus Ear exam: PRESENT: normal external ear exam Mouth exam: PRESENT: moist, tongue midline Neck exam: ABSENT: carotid bruit, JVD, lymphadenopathy, thyromegaly Respiratory exam: PRESENT: Clear, symmetrical, unlabored. ABSENT: rales, rhonchi, tachypnea Cardiovascular exam: PRESENT: RRR. ABSENT: diastolic murmur, rubs, systolic murmur Pulses: PRESENT: normal dorsalis pedis pul Vascular exam: PRESENT: normal capillary refill GI/Abdominal exam: PRESENT: normal bowel sounds, soft. ABSENT: distended, guarding, mass, organolmegaly, rebound, tenderness Rectal exam: PRESENT: deferred Extremities exam: PRESENT: full ROM. ABSENT: calf tenderness, clubbing, pedal edema Neurological exam: PRESENT: alert, awake, oriented to person, oriented to place , oriented to time, oriented to situation, CN II-XII grossly intact. ABSENT: motor sensory deficit Psychiatric exam: PRESENT: appropriate affect, normal mood. ABSENT: homicidal ideation, suicidal ideation Skin exam: PRESENT: dry, intact, warm. ABSENT: cyanosis, rash Results Laboratory Results: 02/03/17 05:03 02/04/17 04:00 02/02/17 02/02/17 02/02/17 08:32 08:32 16:40 Creatine Kinase 242 H 215 H CK-MB (CK-2) 2.92 Troponin I 0.057 02/02/17 16:40 Creatine Kinase CK-MB (CK-2) 3.85 Troponin I 0.021 Impressions: Chest CT 02/02/17 00:00 IMPRESSION: 1. SMALL PLEURAL EFFUSIONS. OTHERWISE UNREMARKABLE CT OF THE CHEST. NO SIGNIFICANT LUNG PARENCHYMAL FINDINGS. 2. PROBABLE HEPATIC CYSTS. Chest X-Ray 02/02/17 00:00 IMPRESSION: The appearance of increased interstitial markings is nonspecific, and may represent atypical pneumonitis, early CHF pattern, pulmonary fibrosis, or other. Assessment & Plan - Diagnosis (1) Acute on chronic systolic (congestive) heart failure Is this a current diagnosis for this admission?: YesPlan: Evidence of pleural effusions on CT scan. Echo doesn't look bad. Diurese yet again today. (2) Coronary artery disease Qualifiers: Coronary Disease-Associated Artery/Lesion type: [place] artery [place] vs. transplanted heart: [place] heart Associated angina: without angina Qualified Code(s): I25.10 - Atherosclerotic heart disease of [place] coronary artery without angina pectoris Is this a current diagnosis for this admission?: YesPlan: Will continue patient's home medications. (3) Hyponatremia Is this a current diagnosis for this admission?: YesPlan: It appears the patient may be volume up. Will gently diurese. Will repeat chemistries in the a.m. (4) H/O aortic valve replacement Is this a current diagnosis for this admission?: YesPlan: INR is therapeutic. Will repeat in the a.m. (5) DVT prophylaxis Is this a current diagnosis for this admission?: YesPlan: The patient is effectively anticoagulated with Coumadin. - Time Time Spent with patient: 25-34 minutes Medications reviewed and adjusted accordingly: Yes Anticipated discharge: Home Within: within 24 hours
[2017-02-05] MEDS: ONDANSETRON 4 MG TAB.RAPDIS PO PRN (17:08)
[2017-02-05] MEDS: ATORVASTATIN CALCIUM 10 MG TABLET PO SCH (21:52)
[2017-02-05] MEDS: WARFARIN SODIUM 5 MG TABLET PO SCH (21:52)
[2017-02-06 05:02] LABS: HEMATOCRIT 38.3 % (36.0-47.0); HEMOGLOBIN 13.3 g/dL (12.0-15.5); HGB HCT DIFFERENCE 1.6; MEAN CORPUSCULAR HEMOGLOBIN 31.5 pg (27.0-33.4); MEAN CORPUSCULAR HGB CONC 34.7 g/dL (32.0-36.0); MEAN CORPUSCULAR VOLUME 91 fl (80-97); RED BLOOD COUNT 4.22 10^6/uL (3.72-5.28); RED CELL DISTRIBUTION WIDTH 12.6 % (11.5-14.0); WHITE BLOOD COUNT 8.6 10^3/uL (4.0-10.5)
[2017-02-06 05:12] LABS: PROTHROMBIN TIME 46.9 SEC (11.4-15.4)
[2017-02-06 05:27] LABS: ANION GAP 13 (5-19); BLOOD UREA NITROGEN 33 mg/dL (7-20); CALCIUM 8.4 mg/dL (8.4-10.2); CARBON DIOXIDE 29 mmol/L (22-30); CHLORIDE 86 mmol/L (98-107); CREATININE RESULT 0.83 mg/dL (0.52-1.25); GLUCOSE 106 mg/dL (75-110); POTASSIUM 4.1 mmol/L (3.6-5.0); SODIUM 127.5 mmol/L (137-145)
--- NOTE | 2017-02-06 08:35 | PDOC PROGRESS REPORT ---
Subjective Progress Note for:: 02/06/17 Subjective:: Patient is seen on morning rounds. She is presently resting in bed. She denies any shortness of breath or dyspnea. She continues to have a productive cough. She denies any fevers of chills. She denies any chest pain or dizziness. She denies any nausea, vomiting or diarrhea. She states she has little appetite, and she continues to be very weak. She states she feels she needs to go to rehab prior to going home. Physical Exam Vital Signs: Temp Pulse Resp BP Pulse Ox 97.9 F 62 18 147/43 H 98 02/06/17 07:25 02/06/17 07:25 02/06/17 07:25 02/06/17 07:25 02/06/17 07:25 Intake & Output 02/05/17 02/06/17 02/07/17 06:59 06:59 06:59 Intake Total 2708 1200 Balance 2708 1200 Weight 51.5 kg 51.6 kg General appearance: PRESENT: no acute distress, thin, well-developed, well- nourished Head exam: PRESENT: atraumatic, normocephalic Eye exam: PRESENT: conjunctiva pink, EOMI, PERRLA. ABSENT: scleral icterus Ear exam: PRESENT: normal external ear exam Mouth exam: PRESENT: moist, tongue midline Neck exam: ABSENT: carotid bruit, JVD, lymphadenopathy, thyromegaly Respiratory exam: PRESENT: rales - bibasilar, symmetrical, unlabored Cardiovascular exam: PRESENT: RRR. ABSENT: diastolic murmur, rubs, systolic murmur Pulses: PRESENT: normal dorsalis pedis pul Vascular exam: PRESENT: normal capillary refill GI/Abdominal exam: PRESENT: normal bowel sounds, soft. ABSENT: distended, guarding, mass, organolmegaly, rebound, tenderness Rectal exam: PRESENT: deferred Extremities exam: PRESENT: full ROM. ABSENT: calf tenderness, clubbing, pedal edema Musculoskeletal exam: PRESENT: ambulatory Neurological exam: PRESENT: alert, awake, oriented to person, oriented to place , oriented to time, oriented to situation, CN II-XII grossly intact. ABSENT: motor sensory deficit Psychiatric exam: PRESENT: appropriate affect, normal mood. ABSENT: homicidal ideation, suicidal ideation Skin exam: PRESENT: dry, intact, warm. ABSENT: cyanosis, rash Results Laboratory Results: 02/06/17 03:46 02/06/17 03:46 02/06/17 02/06/17 03:46 03:46 WBC 8.6 RBC 4.22 Hgb 13.3 Hct 38.3 MCV 91 MCH 31.5 MCHC 34.7 RDW 12.6 Plt Count 169 Sodium 127.5 L Potassium 4.1 Chloride 86 L Carbon Dioxide 29 Anion Gap 13 BUN 33 H Creatinine 0.83 Est GFR ( Amer) > 60 Est GFR (Non-Af Amer) > 60 Glucose 106 Calcium 8.4 Magnesium 2.0 02/02/17 02/02/17 02/02/17 08:32 08:32 16:40 Creatine Kinase 242 H 215 H CK-MB (CK-2) 2.92 Troponin I 0.057 02/02/17 16:40 Creatine Kinase CK-MB (CK-2) 3.85 Troponin I 0.021 Impressions: Chest CT 02/02/17 00:00 IMPRESSION: 1. SMALL PLEURAL EFFUSIONS. OTHERWISE UNREMARKABLE CT OF THE CHEST. NO SIGNIFICANT LUNG PARENCHYMAL FINDINGS. 2. PROBABLE HEPATIC CYSTS. Chest X-Ray 02/02/17 00:00 IMPRESSION: The appearance of increased interstitial markings is nonspecific, and may represent atypical pneumonitis, early CHF pattern, pulmonary fibrosis, or other. Assessment & Plan - Diagnosis (1) Acute on chronic systolic (congestive) heart failure Is this a current diagnosis for this admission?: YesPlan: Patient appears to be euvolemic. Will continue current medications (2) Hyponatremia Is this a current diagnosis for this admission?: YesPlan: Patient has been diuresed the last 2 days. Will hold diuretics today and continue to evaluate. Fluid restriction (3) H/O aortic valve replacement Is this a current diagnosis for this admission?: YesPlan: Patient is on warfarin. Supratherapeutic today. Will hold and reevaluate (4) Coronary artery disease Qualifiers: Coronary Disease-Associated Artery/Lesion type: [place] artery [place] vs. transplanted heart: [place] heart Associated angina: without angina Qualified Code(s): I25.10 - Atherosclerotic heart disease of [place] coronary artery without angina pectoris Is this a current diagnosis for this admission?: YesPlan: Continue current medications. (5) Physical deconditioning Is this a current diagnosis for this admission?: YesPlan: Will consult physical therapy. Possible rehab placement versus home with home health and PT - Time Time Spent with patient: 25-34 minutes Critical Time spent with patient: 15-24 minutes Medications reviewed and adjusted accordingly: Yes
[2017-02-06] MEDS: EPLERENONE 25 MG TABLET PO SCH (10:30)
[2017-02-06] MEDS: LOSARTAN POTASSIUM 50 MG TABLET PO SCH (10:34)
[2017-02-06] MEDS: CARVEDILOL 12.5 MG TABLET PO SCH ×2 (10:34→21:35)
[2017-02-06] MEDS: ASPIRIN 81 MG TABLET, CHEWABLE PO SCH (10:34)
[2017-02-06] MEDS: FLUTICASONE NASAL SPRAY 50 MCG/SPRY 120 SPRAY/16 GM NASL SCH ×2 (10:35→21:36)
[2017-02-06] MEDS: ATORVASTATIN CALCIUM 10 MG TABLET PO SCH (21:36)
[2017-02-07] MEDS: GUAIFENESIN SYRP 200 MG/10 ML UDC PO PRN (09:13)
[2017-02-07] MEDS: FLUTICASONE NASAL SPRAY 50 MCG/SPRY 120 SPRAY/16 GM NASL SCH (09:14)
[2017-02-07] MEDS: LOSARTAN POTASSIUM 50 MG TABLET PO SCH (09:14)
[2017-02-07] MEDS: CARVEDILOL 12.5 MG TABLET PO SCH (09:14)
[2017-02-07] MEDS: ASPIRIN 81 MG TABLET, CHEWABLE PO SCH (09:14)
[2017-02-07] MEDS: EPLERENONE 25 MG TABLET PO SCH (09:14)
--- NOTE | 2017-02-07 09:48 | PDOC TRANSFER SUMMARY ---
General - Admit/Disc Date/PCP Admission Date/Primary Care Provider: 02/02/17 04:35 Discharge Date: 02/07/17 - Discharge Diagnosis (1) Acute on chronic systolic (congestive) heart failure Is this a current diagnosis for this admission?: YesSummary: Improved (2) Hyponatremia Is this a current diagnosis for this admission?: YesSummary: Resolved (3) H/O aortic valve replacement Is this a current diagnosis for this admission?: YesSummary: On Warfarin (4) Coronary artery disease Is this a current diagnosis for this admission?: YesSummary: Continue current medications (5) Physical deconditioning Is this a current diagnosis for this admission?: YesSummary: [facility] for rehab prior to returning home - Additional Information Resuscitation Status: Full Code Discharge Activity: Activity As Tolerated, Balance Activity w/Rest, Weigh Daily Home Medications: Aspirin [Aspirin 81 mg Chewable Tablet] 81 mg PO DAILY 02/02/17 Carvedilol [Coreg 25 mg Tablet] 25 mg PO Q12 02/02/17 Losartan Potassium [Cozaar 50 mg Tablet] 50 mg PO DAILY 02/02/17 Warfarin Sodium [Coumadin 5 mg Tablet] 5 mg PO DAILY 02/02/17 Acetaminophen [Tylenol 325 mg Tablet] 650 mg PO Q4HP PRN tablet 02/07/17 Atorvastatin Calcium [Lipitor 10 mg Tablet] 10 mg PO QHS tablet 02/07/17 Diazepam [Valium 5 mg Tablet] 2.5 mg PO BIDP PRN #10 02/07/17 Diazepam [Valium 5 mg Tablet] 2.5 mg PO BIDP PRN #10 tablet 02/07/17 Eplerenone [Inspra 25 mg Tablet] 25 mg PO DAILY tablet 02/07/17 Fluticasone Propionate [Flonase Nasal [place] 50 Mcg/[place] 16 gm] 2 spray NASL Q12 spray.pump 02/07/17 Guaifenesin [Robitussin Syrup 200 mg/10 ml Ud Cup] 200 mg PO Q4HP PRN #0 udc 04/20 Ondansetron [Zofran Odt 4 mg Tablet] 4 mg PO Q4HP PRN tab.rapdis 02/07/17 Tramadol HCl [Ultram 50 mg Tablet] 50 mg PO Q6HP PRN #20 tablet 04/06/17 Tramadol HCl [Ultram 50 mg Tablet] 50 mg PO Q6HP PRN #20 tablet 02/07/17 History of Present Illness Admission Date/PCP: 02/02/17 04:35 Shortness of breath and dyspnea History of Present Illness: ANGEL SMITH is a 81 year old female with a past medical history of aortic valve replacement on Coumadin, hypertension and dyslipidemia who had been her usual state of health until [facility] days ago having diffuse arthralgias shortness of breath and cough sought evaluation at primary care where she was diagnosed with influenza A. she received medication for symptomatic management and is had improvement of her arthralgia but worsening of shortness of breath and cough prompting to seek evaluation emergency room where she's found to have a fever with tachypnea and an abnormal EKG with chronic changes of possible fibrosis and emphysema with atypical perihilar infiltrates. She started on empiric antibiotics albuterol and Atrovent referred to the hospitalist for admission. Patient denies previous pneumonia Hospital Course Hospital Course: The patient was admitted to [facility] on telemetry. She had transthoracic echo done which showed an EF of 50-55% and grade II/IV diastolic dysfunction. She was diuresed. She has chronic small bilateral effusions. Cultures grew no organisms. Antibiotics were discontinued. She had PT ordered due to physical deconditioning and overall weakness. They felt she could benefit from rehab and continued PT Physical Exam Vital Signs: Temp Pulse Resp BP Pulse Ox 97.9 F 61 18 154/52 H 94 02/07/17 07:28 02/07/17 07:28 02/07/17 07:28 02/07/17 07:28 02/07/17 07:28 Intake & Output 02/06/17 02/07/17 02/08/17 06:59 06:59 06:59 Intake Total 1200 1667 Balance 1200 1667 Weight 51.6 kg 52.3 kg General appearance: PRESENT: no acute distress, thin, well-developed, well- nourished Head exam: PRESENT: atraumatic, normocephalic Eye exam: PRESENT: conjunctiva pink, EOMI, PERRLA. ABSENT: scleral icterus Ear exam: PRESENT: normal external ear exam Mouth exam: PRESENT: moist, tongue midline Neck exam: ABSENT: carotid bruit, JVD, lymphadenopathy, thyromegaly Respiratory exam: PRESENT: decreased breath sounds, symmetrical, unlabored Cardiovascular exam: PRESENT: RRR. ABSENT: diastolic murmur, rubs, systolic murmur Pulses: PRESENT: normal dorsalis pedis pul Vascular exam: PRESENT: normal capillary refill GI/Abdominal exam: PRESENT: normal bowel sounds, soft. ABSENT: distended, guarding, mass, organolmegaly, rebound, tenderness Rectal exam: PRESENT: deferred Extremities exam: PRESENT: full ROM. ABSENT: calf tenderness, clubbing, pedal edema Neurological exam: PRESENT: alert, awake, oriented to person, oriented to place , oriented to time, oriented to situation, CN II-XII grossly intact. ABSENT: motor sensory deficit Psychiatric exam: PRESENT: appropriate affect, normal mood. ABSENT: homicidal ideation, suicidal ideation Skin exam: PRESENT: dry, intact, warm. ABSENT: cyanosis, rash Results Laboratory Results: 02/06/17 03:46 02/06/17 03:46 02/02/17 02/02/17 02/02/17 08:32 08:32 16:40 Creatine Kinase 242 H 215 H CK-MB (CK-2) 2.92 Troponin I 0.057 02/02/17 16:40 Creatine Kinase CK-MB (CK-2) 3.85 Troponin I 0.021 Impressions: Chest CT 02/02/17 00:00 IMPRESSION: 1. SMALL PLEURAL EFFUSIONS. OTHERWISE UNREMARKABLE CT OF THE CHEST. NO SIGNIFICANT LUNG PARENCHYMAL FINDINGS. 2. PROBABLE HEPATIC CYSTS. Chest X-Ray 02/02/17 00:00 IMPRESSION: The appearance of increased interstitial markings is nonspecific, and may represent atypical pneumonitis, early CHF pattern, pulmonary fibrosis, or other. Transfer Plan - Disposition Transfer Plan: Transfer to [facility] for nursing home care and physical therapy - Time Spent with Patient Time spent with patient: Less than 30 Minutes Qualifiers [facility] BEING DISCHARGED WITH ANY OF THE FOLLOWING DIAGNOSIS?: Heart Failure HF Pt being discharged on ACEI for LVEF less than 40%?: Yes
[2017-02-07 10:30] LABS: PROTHROMBIN TIME 43.1 SEC (11.4-15.4)
[2017-02-07 12:08] VITALS: BP 124/51
== END 2017-02-07 14:29 | DRG 292 ==
LOC: ER 23:44 → EH 02-02 03:23 → UNDOADMIN 02-02 03:23 → EH 02-02 04:35 → 3N 02-02 05:32 → EH 02-02 05:32
PROVIDERS: ADMIT Internal Medicine; ATTEND Internal Medicine
PROC: 3E0F73Z Introduction of Anti-inflammatory into Respiratory Tract, Via Natural or Artificial Opening (ICD-10-PCS; principal; 2017-02-02)
DX: I11.0 Hypertensive heart disease with heart failure (principal); E87.1 Hypo-osmolality and hyponatremia; I50.23 Acute on chronic systolic (congestive) heart failure; E78.5 Hyperlipidemia, unspecified; I25.10 Atherosclerotic heart disease of native coronary artery without angina pectoris; I48.91 Unspecified atrial fibrillation; Z60.2 Problems related to living alone; Z87.891 Personal history of nicotine dependence; Z95.2 Presence of prosthetic heart valve; Z79.01 Long term (current) use of anticoagulants; Z79.82 Long term (current) use of aspirin; Z79.899 Other long term (current) drug therapy; Z88.8 Allergy status to other drugs, medicaments and biological substances
CPT/HCPCS: 36415; 71010; 71250; 80048; 80053; 82550; 82553; 83735; 83880; 84484; 85025; 85027; 85610; 85652; 87070; 87205; 93005; 93010; 93306; 94640; 94667; 94668; 96365; 96367; 96375; 99285; G8978-GP; G8979-GP; G8980-GP; J1940; J1956; J2405; J3475; J3490; J7620; S0119

== ENCOUNTER 2017-04-01 09:34 | Emergency (ER) | payer MEDICARE, OTHER ==
--- NOTE | 2017-04-01 10:27 | ER Document Report ---
ED Medical Screen (RME) - General Chief Complaint: General Weakness Stated Complaint: DIZZY,WEAKNESS Time Seen by Provider: 04/01/17 10:15 Mode of Arrival: Ambulatory Information source: Patient Notes: This is a very pleasant 81-year-old female with a history of mechanical aortic valve on Coumadin, hypertension, and dyslipidemia with a recent hospital admission from February 02 - February 07 of this year for CHF and pneumonia who presents to the ER for evaluation of feeling "weak and dizzy". She states that she has felt poorly for the past 2 weeks and has had subjective fevers and chills at home. She denies any cough or sputum production. She denies shortness of breath. She states that she just feels that she has no energy and at times will get dizzy. She denies any chest pain and she denies headache. She was seen at urgent care for the symptoms 2 days ago and states that she had blood work drawn but something was wrong with the blood work and she was unable to get results and so she was urged to go to the ER for blood work. I have greeted and performed a rapid initial assessment of this patient. A comprehensive ED assessment and evaluation of the patient, analysis of test results and completion of the medical decision making process will be conducted by additional ED providers. TRAVEL OUTSIDE OF THE [place] IN LAST 30 DAYS: No - Related Data Allergies/Adverse Reactions: lisinopril Allergy (Verified 02/02/17 01:47) Past Medical History - Social History Chew tobacco use (# tins/day): No Frequency of alcohol use: None Drug Abuse: None - Past Medical History Cardiac Medical History: Reports: Hx Atrial Fibrillation, Hx Congestive Heart Failure, Hx Hypertension Denies: Hx Heart Attack Pulmonary Medical History: Reports: Hx Pneumonia - 02/2017 Denies: Hx Asthma Neurological Medical History: Denies: Hx Cerebrovascular Accident, Hx Seizures Renal/ Medical History: Denies: Hx Peritoneal Dialysis GI Medical History: Denies: Hx Hepatitis, Hx Hiatal Hernia, Hx Ulcer Infectious Medical History: Denies: Hx Hepatitis Past Surgical History: Reports: Hx Cardiac Surgery - aortic mechanical valve, Hx Open Heart Surgery - 2001, bypass x2 mechanical aortic valve. Denies: Hx Hysterectomy, Hx Mastectomy, Hx Pacemaker - Immunizations Hx Diphtheria, Pertussis, Tetanus Vaccination: Yes Physical Exam - Vital signs Vitals: Temp Pulse Resp BP Pulse Ox 97.9 F 14 L 75 H 192/68 H 97 04/01/17 09:35 04/01/17 09:35 04/01/17 09:35 04/01/17 09:35 04/01/17 09:35 - General General appearance: Appears well In distress: None - HEENT Head: Normocephalic, Atraumatic Eyes: Normal Conjunctiva: Normal Mucous membranes: Normal - Cardiovascular Rhythm: Regular Heart sounds: S1 appreciated, S2 appreciated Course - Vital Signs Vital signs: Temp Pulse Resp BP Pulse Ox 97.9 F 14 L 75 H 192/68 H 97 04/01/17 09:35 04/01/17 09:35 04/01/17 09:35 04/01/17 09:35 04/01/17 09:35
--- NOTE | 2017-04-01 11:13 | RADIOLOGY REPORT (SQ) ---
EXAM DESCRIPTION: CHEST SINGLE VIEW COMPLETED DATE/TIME: 04/01/2017 11:05 am REASON FOR STUDY: weakness, recent CHF/pneumonia COMPARISON: 09/05/2015 EXAM PARAMETERS: NUMBER OF VIEWS: One view. TECHNIQUE: Single frontal radiographic view of the chest acquired. RADIATION DOSE: NA LIMITATIONS: None. FINDINGS: LUNGS AND PLEURA: No new opacities, masses or pneumothorax. No pleural effusion. MEDIASTINUM AND HILAR STRUCTURES: No masses. Contour normal. HEART AND VASCULAR STRUCTURES: Heart normal in size. Normal vasculature. BONES: No acute findings. HARDWARE: Stable. OTHER: No other significant finding. IMPRESSION: NO ACUTE RADIOGRAPHIC FINDING IN THE CHEST. TECHNICAL DOCUMENTATION: JOB ID: [id number]
[2017-04-01 11:16] LABS: ABSOLUTE BASOPHILS # (AUTO) 0.1 10^3/uL (0.0-0.2); ABSOLUTE EOSINOPHILS # (AUTO) 0.7 10^3/uL (0.0-0.6); ABSOLUTE LYMPHOCYTES (AUTO) 1.4 10^3/uL (0.5-4.7); ABSOLUTE MONOCYTES (AUTO) 0.5 10^3/uL (0.1-1.4); ABSOLUTE NEUT (AUTO) 3.2 10^3/uL (1.7-8.2); BASOPHILS % (AUTO) 0.9 % (0-2); EOSINOPHILS % (AUTO) 11.9 % (0-6); HEMATOCRIT 38.7 % (36.0-47.0); HEMOGLOBIN 12.8 g/dL (12.0-15.5); HGB HCT DIFFERENCE -0.3; LYMPHOCYTES % (AUTO) 24.1 % (13-45); MEAN CORPUSCULAR HEMOGLOBIN 31.5 pg (27.0-33.4); MEAN CORPUSCULAR VOLUME 95 fl (80-97); MONOCYTES % (AUTO) 8.7 % (3-13); RED BLOOD COUNT 4.07 10^6/uL (3.72-5.28); RED CELL DISTRIBUTION WIDTH 14.8 % (11.5-14.0); SEGMENTED NEUTROPHILS % (AUTO) 54.4 % (42-78)
[2017-04-01 11:18] LABS: APPEARANCE,URINE CLEAR; BILIRUBIN,URINE NEGATIVE (NEGATIVE); GLUCOSE, URINE NEGATIVE (NEGATIVE); KETONES,URINE NEGATIVE (NEGATIVE); LEUKOCYTE ESTERASE,URINE SMALL (NEGATIVE); NITRITE,URINE NEGATIVE (NEGATIVE); PROTEIN,URINE NEGATIVE (NEGATIVE); URINE SPECIFIC GRAVITY 1.009; UROBILINOGEN,URINE NEGATIVE mg/dL (<2.0)
[2017-04-01 11:22] LABS: PARTIAL THROMBOPLASTIN TIME 46.1 SEC (23.5-35.8); PROTHROMBIN TIME 28.8 SEC (11.4-15.4)
[2017-04-01 11:32] LABS: ALANINE AMINOTRANSFERASE 27 U/L (9-52); ALBUMIN 4.2 g/dL (3.5-5.0); ALKALINE PHOSPHATASE 74 U/L (38-126); ANION GAP 11 (5-19); ASPARTATE AMINO TRANSFERASE 40 U/L (14-36); BILIRUBIN,DIRECT 0.2 mg/dL (0.0-0.4); BILIRUBIN,TOTAL 0.5 mg/dL (0.2-1.3); BLOOD UREA NITROGEN 19 mg/dL (7-20); CALCIUM 10.2 mg/dL (8.4-10.2); CARBON DIOXIDE 31 mmol/L (22-30); CHLORIDE 101 mmol/L (98-107); CREATININE RESULT 0.88 mg/dL (0.52-1.25); GLUCOSE 76 mg/dL (75-110); POTASSIUM 4.6 mmol/L (3.6-5.0); SODIUM 142.5 mmol/L (137-145); TOTAL PROTEIN 7.6 g/dL (6.3-8.2)
--- NOTE | 2017-04-01 11:44 | ER Document Report ---
ED General - General Chief Complaint: General Weakness Stated Complaint: DIZZY,WEAKNESS Time Seen by Provider: 04/01/17 10:15 Mode of Arrival: Ambulatory Information source: Patient Notes: This is an 81-year-old female with a history of CHF, aortic valve replacement ( Coumadin), coronary artery disease, hypertension. The patient has a recent hospitalization for CHF, pneumonia and influenza. She was discharged to [facility] for rehabilitation and has since been discharged home. She presents to the emergency room with weakness and dizziness for 2-3 weeks. She states she has had low-grade fever (temperature 98 states normally her temperature is 96.5). Patient denies any chest pain, abdominal pain shortness of breath, cough , blood in stool or black stools. TRAVEL OUTSIDE OF THE [place] IN LAST 30 DAYS: No - HPI Onset: Last week Onset/Duration: Gradual Quality of pain: No pain Severity: None Pain Level: Denies Associated symptoms: Fever - States that she has had low-grade fevers at approximately 98 Fahrenheit. denies: Chest pain, Nonproductive cough, Diarrhea , Nausea, Vomiting, Shortness of breath Exacerbated by: Denies Relieved by: Denies Similar symptoms previously: Yes Recently seen / treated by doctor: Yes - Related Data Allergies/Adverse Reactions: lisinopril Allergy (Verified 02/02/17 01:47) Past Medical History - General Information source: Patient - Social History Smoking Status: Never Smoker Chew tobacco use (# tins/day): No Frequency of alcohol use: None Drug Abuse: None Lives with: Family Family History: Hypertension Patient has suicidal ideation: No Patient has homicidal ideation: No - Past Medical History Cardiac Medical History: Reports: Hx Atrial Fibrillation, Hx Congestive Heart Failure, Hx Hypertension Denies: Hx Heart Attack Pulmonary Medical History: Reports: Hx Pneumonia - 02/2017 Denies: Hx Asthma Neurological Medical History: Denies: Hx Cerebrovascular Accident, Hx Seizures Renal/ Medical History: Denies: Hx Peritoneal Dialysis GI Medical History: Denies: Hx Hepatitis, Hx Hiatal Hernia, Hx Ulcer Infectious Medical History: Denies: Hx Hepatitis Past Surgical History: Reports: Hx Cardiac Surgery - aortic mechanical valve, Hx Open Heart Surgery - 2001, bypass x2 mechanical aortic valve. Denies: Hx Hysterectomy, Hx Mastectomy, Hx Pacemaker - Immunizations Hx Diphtheria, Pertussis, Tetanus Vaccination: Yes Review of Systems - Review of Systems Constitutional: Fever. denies: Chills EENT: No symptoms reported Cardiovascular: No symptoms reported Respiratory: No symptoms reported Gastrointestinal: No symptoms reported Genitourinary: No symptoms reported Female Genitourinary: No symptoms reported Musculoskeletal: No symptoms reported Skin: No symptoms reported Hematologic/Lymphatic: No symptoms reported Neurological/Psychological: See HPI Physical Exam - Vital signs Vitals: Temp Pulse Resp BP Pulse Ox 97.9 F 14 L 75 H 192/68 H 97 04/01/17 09:35 04/01/17 09:35 04/01/17 09:35 04/01/17 09:35 04/01/17 09:35 Notes: Physical exam: GENERAL: 81-year-old female, alert and oriented 3, no acute distress HEAD: Atraumatic, normocephalic. EYES: Pupils equal round and reactive to light, extraocular movements intact, sclera anicteric, conjunctiva are normal. ENT: TMs normal, nares patent, oropharynx clear without exudates. Moist mucous membranes. NECK: Normal range of motion, supple without lymphadenopathy or JVD. LUNGS: Breath sounds clear to auscultation bilaterally and equal. No wheezes rales or rhonchi. HEART: Regular rate and rhythm without murmurs, rubs or gallops. ABDOMEN: Soft, normoactive bowel sounds. No tenderness to palpation. No guarding, no rebound. No masses appreciated. EXTREMITIES: Normal range of motion, no pitting or edema. No clubbing or cyanosis. NEUROLOGICAL: Cranial nerves II through XII grossly intact. Normal speech, normal gait. PSYCH: Normal mood, normal affect. SKIN: Warm, Dry, normal turgor, no rashes or lesions noted. Course - Re-evaluation Re-evalutation: 04/01/17 14:38 Patient is currently doing well. I did discuss the case with Dr. Joe Baez who referred her to the ER for blood work. Given the patient a copy of today's x-ray and lab results with her to follow-up with her doctor I did recommend that the patient not travel(moncho [place]). [address] [place] which is what she was wanting to do. 04/01/17 17:21 - Vital Signs Vital signs: Temp Pulse Resp BP Pulse Ox 97.9 F 14 L 20 170/60 H 97 04/01/17 09:35 04/01/17 09:35 04/01/17 14:31 04/01/17 14:31 04/01/17 14:31 - Laboratory Result Diagrams: 04/01/17 10:50 04/01/17 10:50 Laboratory results interpreted by me: 04/01/17 04/01/17 04/01/17 10:50 10:50 10:50 RDW 14.8 H Eosinophils % 11.9 H Absolute Eosinophils 0.7 H PT 28.8 H APTT 46.1 H Carbon Dioxide 31 H AST 40 H NT-Pro-B Natriuret Pep Ur Leukocyte Esterase 04/01/17 04/01/17 10:50 10:50 RDW Eosinophils % Absolute Eosinophils PT APTT Carbon Dioxide AST NT-Pro-B Natriuret Pep 1050 H Ur Leukocyte Esterase SMALL H - Diagnostic Test Radiology reviewed: Image reviewed, Reports reviewed - Chest x-ray shows no infiltrates or CHF - EKG Interpretation by Me Rate: Normal Rhythm: NSR - EKG shows normal sinus rhythm with ventricular rate of 82, left axis deviation, LVH, no acute ST-T wave changes. Discharge - Discharge Clinical Impression: generalized weakness Condition: Stable Disposition: HOME, SELF-CARE Additional Instructions: Recommendations: As we discussed, the chest x-ray and urinalysis did not show infection. The chest x-ray was also clear of any congestive heart failure. Your blood work looks reasonable today. Your heart tests were normal. One blood test for fluid (BNP) although at 1000 today, this is significantly improved from 2 weeks ago when it was in the 3000 range. I recommend you follow-up with your primary care doctor in the next day. Rest, take it easy Continue current medicines as previously prescribed. Return to the emergency room for worsening fever, worsening weakness or any concerns or getting worse. Referrals: MONCHO FAM NP [Primary Care Provider] - Follow up tomorrow
[2017-04-01 12:44] LABS: THYROID STIMULATING HORMONE 0.81 uIU/mL (0.47-4.68)
[2017-04-01 14:32] VITALS: BP 170/60
--- NOTE | 2017-04-01 21:15 | EKG REPORT ---
SEVERITY:- ABNORMAL ECG - SINUS RHYTHM PROBABLE LEFT ATRIAL ABNORMALITY PROBABLE LVH WITH SECONDARY REPOL ABNRM ANTERIOR Q WAVES, POSSIBLY DUE TO LVH : Confirmed by: Herber Morrison 01-Apr-2017 21:14:24
== END 2017-04-01 14:47 | disposition home or self-care (01) ==
LOC: ER 09:34
DX: R53.1 Weakness (principal); R42 Dizziness and giddiness; I50.9 Heart failure, unspecified; Z79.01 Long term (current) use of anticoagulants; I25.10 Atherosclerotic heart disease of native coronary artery without angina pectoris; I10 Essential (primary) hypertension
CPT/HCPCS: 36415; 71010; 80053; 81001; 83735; 83880; 84439; 84443; 85025; 85610; 85730; 93005; 93010; 99285

== ENCOUNTER 2017-04-03 12:17 | Emergency (ER) | payer MEDICARE, OTHER ==
--- NOTE | 2017-04-03 13:04 | ER Document Report ---
ED General - General Chief Complaint: General Weakness Stated Complaint: WEAKNESS Time Seen by Provider: 04/03/17 12:58 Notes: Patient says she is continuing to experience generalized weakness. This symptom has been present for the last 3 weeks. Patient was seen here 2 days ago for the same complaint and had a complete workup, all of which was essentially normal. She says she has no energy and is running a low-grade fever. Denies any pains anywhere. Patient's health began to deteriorate in early February when she was admitted to this hospital for 6 days with a diagnosis of CHF and pneumonia. After she will was discharged, she went to a local rehab facility for 2 weeks and then had several more weeks of rehab at home. She seen her primary care provider, Mrs Frida MENARD, who thought might be she still had some infection and put her on a two-week antibiotic which the patient says she has now finished taking. She went to a local urgent care and saw Dr. Baez Saturday. She was referred here where she had the workup described. Patient denies any vomiting or diarrhea. Denies any urinary tract symptoms. Denies any cough or chest congestion. Denies any pain anywhere. Her furs salesperson has stopped all of her heart medicines, including blood pressure medicines, except for Coumadin which she takes because she has a mechanical heart valve. She is also on a baby aspirin daily. TRAVEL OUTSIDE OF THE [place] IN LAST 30 DAYS: No - Related Data Allergies/Adverse Reactions: lisinopril Allergy (Verified 02/02/17 01:47) Past Medical History - Social History Smoking Status: Never Smoker Chew tobacco use (# tins/day): No Frequency of alcohol use: None Drug Abuse: None Family History: Reviewed & Not Pertinent, Hypertension - Past Medical History Cardiac Medical History: Reports: Hx Atrial Fibrillation, Hx Congestive Heart Failure, Hx Hypertension Pulmonary Medical History: Reports: Hx Pneumonia - 02/2017 Past Surgical History: Reports: Hx Cardiac Surgery - aortic mechanical valve, Hx Open Heart Surgery - 2001, bypass x2 mechanical aortic valve - Immunizations Hx Diphtheria, Pertussis, Tetanus Vaccination: Yes Review of Systems - Review of Systems Notes: REVIEW OF SYSTEMS: CONSTITUTIONAL : Patient claims to be having a low-grade fever. EENT: Denies eye, ear, nose or mouth or throat pain or other symptoms. CARDIOVASCULAR: Denies chest pain. RESPIRATORY: Denies cough, chest congestion, or shortness of breath. GASTROINTESTINAL: Denies abdominal pain or nausea, vomiting, or diarrhea. GENITOURINARY: Denies difficulty or painful urinating, urinary frequency, blood in urine. MUSCULOSKELETAL: Denies back or neck pain. Denies joint pain or swelling. SKIN: Denies rash or skin lesions. NEUROLOGICAL: Denies LOC or altered mental status. Denies headache. Denies sensory loss or motor deficits. Psychiatric: Patient relates that she has many responsibilities she has to take care of. ALL OTHER SYSTEMS REVIEWED AND NEGATIVE. Physical Exam - Vital signs Vitals: Temp Pulse Resp BP Pulse Ox 97.4 F 85 14 202/72 H 99 04/03/17 12:21 04/03/17 12:21 04/03/17 12:21 04/03/17 12:21 04/03/17 12:21 Interpretation: Hypertensive - It came down to an acceptable 160 systolic without treatment before her discharge. - Notes Notes: PHYSICAL EXAMINATION: GENERAL: Well-appearing, in no acute distress. HEAD: Atraumatic, normocephalic. EYES: Pupils equal round and reactive to light, extraocular movements intact. ENT: oropharynx clear without exudates. Moist mucous membranes. NECK: Normal range of motion, supple. LUNGS: Breath sounds clear and equal bilaterally. HEART: Regular rate and rhythm without murmurs. ABDOMEN: Soft, nontender. No guarding or rebound. BACK: No tenderness throughout entire back. EXTREMITIES: Normal range of motion without pain. NEUROLOGICAL: Normal speech, normal gait. Normal sensory, motor, and reflex exams. Awake, alert, and oriented x3. Cranial nerves normal. PSYCH: Patient appears to need to be depressed. 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 I have advised her that I do not think that she is capable of driving a car well enough to be driving at this point in her life. I am patient adamantly denies the possibility that stress or anxiety or depression or any mental condition might be contributing to her symptoms of weakness that she is feeling. In spite of the fact that I point out to her that she has had extensive workups today as well as just a couple days ago and all the results from both these workups are all essentially normal. SKIN: Warm, dry, no rashes. Course - Vital Signs Vital signs: Temp Pulse Resp BP Pulse Ox 97.4 F 85 14 202/72 H 99 04/03/17 12:21 04/03/17 12:21 04/03/17 12:21 04/03/17 12:21 04/03/17 12:21 - Laboratory Result Diagrams: 04/03/17 14:40 04/03/17 14:40 Laboratory results interpreted by me: 04/03/17 04/03/17 04/03/17 14:40 14:40 14:40 RDW 14.7 H Eosinophils % 7.9 H PT 24.0 H AST 37 H - Diagnostic Test Radiology results interpreted by me: 04/03/17 20:11 Chest x-ray shows no acute process and no pneumonias. Discharge - Discharge Clinical Impression: Generalized weakness Condition: Stable Disposition: HOME, SELF-CARE Additional Instructions: Weakness We did not find a definite cause for your weakness. This may require further medical tests. Weakness can be caused by infection, physical exhaustion , rapid weight loss, dehydration, or medicine side effects. Diseases of the muscles, heart, nerves, and blood vessels can make you weak. Sometimes the problem is simply depression or lack of exercise. You should get plenty of rest. Unless the doctor tells you otherwise, it's usually best to add short periods of regular mild exercise. Eat a nutritious diet with multiple small, low-sugar meals. If symptoms continue, additional medical evaluation will be necessary. Be sure to follow up as instructed. If you become very dizzy, nauseated, or feel like you're going to faint, lie down right away. Wait until the symptoms have passed before you get up again. Stand up slowly. Call the doctor or return if you develop chest pain, abdominal pain, severe headache, irregular heartbeat or very fast pulse, confusion, vision problems, fever, muscular pain, or any other new symptom. NORMAL EXAM AND WORKUP: At this time, your examination and workup show no significant abnormality. No significant abnormal physical findings were noted. All laboratory, EKG, and imaging (x-ray, CT scans, ultrasound) studies that were ordered show no significant abnormality. Although your examination and all studies that were ordered showed no significant abnormal finding, there are no examinations and no studies that are 100% accurate. There is always the possibility that some abnormality could exist and not be detected with physical examination or within the limits and capabilities of laboratory and other studies. You should return or follow up as you were instructed on your visit today for further evaluation if your symptoms do not resolve. Your very thorough and complete evaluation for weakness done 2 days ago and again today, both are completely normal. No reason for your weakness can be found. I feel that anxiety and stress might be playing a part in your symptoms that you are having. Anxiety The physician feels that some of your health problems are being caused by anxiety. Anxiety affects your health in many ways. Anxiety alone can cause palpitations, sweats, chest pains, abdominal pains, shortness of breath, and headaches. It contributes to ulcer disease, high blood pressure, irritable bowel syndrome, and has been shown to cause flare-ups of many other diseases. Anxiety is not a simple disorder to treat. If the anxiety is due to recent life stresses, you may simply need time to "work through" the changes. If the anxiety is due to an underlying unhappiness with yourself or due to psychiatric disturbance, professional help will be needed. Your physician can refer you for further help if needed. Anti-anxiety medication is occasionally given if the stress is acute or if you are having trouble sleeping. Chronic or frequent use of these medications is not a good idea because the body becomes reliant on it, preventing you from dealing with life's normal stresses. FOLLOW-UP CARE: If you have been referred to a physician for follow-up care, call the physician s office for an appointment as you were instructed or within the next two days. If you experience worsening or a significant change in your symptoms, notify the physician immediately or return to the Emergency Department at any time for re-evaluation. Call [facility] and schedule them to check your blood pressure on Saturday and to manage your high blood pressure.
[2017-04-03 13:30] VITALS: BP 202/72
[2017-04-03 13:46] LABS: APPEARANCE,URINE CLEAR; BILIRUBIN,URINE NEGATIVE (NEGATIVE); GLUCOSE, URINE NEGATIVE (NEGATIVE); KETONES,URINE NEGATIVE (NEGATIVE); LEUKOCYTE ESTERASE,URINE NEGATIVE (NEGATIVE); NITRITE,URINE NEGATIVE (NEGATIVE); PROTEIN,URINE NEGATIVE (NEGATIVE); URINE SPECIFIC GRAVITY 1.002; UROBILINOGEN,URINE NEGATIVE mg/dL (<2.0)
[2017-04-03 14:54] LABS: ABSOLUTE BASOPHILS # (AUTO) 0.1 10^3/uL (0.0-0.2); ABSOLUTE EOSINOPHILS # (AUTO) 0.5 10^3/uL (0.0-0.6); ABSOLUTE LYMPHOCYTES (AUTO) 1.8 10^3/uL (0.5-4.7); ABSOLUTE MONOCYTES (AUTO) 0.5 10^3/uL (0.1-1.4); ABSOLUTE NEUT (AUTO) 3.7 10^3/uL (1.7-8.2); BASOPHILS % (AUTO) 0.9 % (0-2); EOSINOPHILS % (AUTO) 7.9 % (0-6); HEMATOCRIT 36.8 % (36.0-47.0); HEMOGLOBIN 12.2 g/dL (12.0-15.5); HGB HCT DIFFERENCE -0.2; LYMPHOCYTES % (AUTO) 27.9 % (13-45); MEAN CORPUSCULAR HEMOGLOBIN 31.3 pg (27.0-33.4); MEAN CORPUSCULAR HGB CONC 33.1 g/dL (32.0-36.0); MEAN CORPUSCULAR VOLUME 95 fl (80-97); RED BLOOD COUNT 3.89 10^6/uL (3.72-5.28); RED CELL DISTRIBUTION WIDTH 14.7 % (11.5-14.0); SEGMENTED NEUTROPHILS % (AUTO) 56.3 % (42-78); WHITE BLOOD COUNT 6.6 10^3/uL (4.0-10.5)
[2017-04-03 15:22] LABS: ALANINE AMINOTRANSFERASE 33 U/L (9-52); ALBUMIN 4.1 g/dL (3.5-5.0); ALKALINE PHOSPHATASE 76 U/L (38-126); ANION GAP 10 (5-19); ASPARTATE AMINO TRANSFERASE 37 U/L (14-36); BILIRUBIN,DIRECT 0.4 mg/dL (0.0-0.4); BILIRUBIN,TOTAL 0.8 mg/dL (0.2-1.3); BLOOD UREA NITROGEN 18 mg/dL (7-20); CALCIUM 10.1 mg/dL (8.4-10.2); CARBON DIOXIDE 28 mmol/L (22-30); CHLORIDE 103 mmol/L (98-107); CREATINE KINASE 54 U/L (30-135); CREATININE RESULT 0.83 mg/dL (0.52-1.25); GLUCOSE 85 mg/dL (75-110); POTASSIUM 3.9 mmol/L (3.6-5.0); SODIUM 141.2 mmol/L (137-145); TOTAL PROTEIN 7.3 g/dL (6.3-8.2)
[2017-04-03 15:33] LABS: CREATINE KINASE MB 1.39 ng/mL (<4.55); TROPONIN I 0.012 ng/mL
--- NOTE | 2017-04-05 08:58 | EKG REPORT ---
SEVERITY:- ABNORMAL ECG - SINUS RHYTHM LEFT VENTRICULAR HYPERTROPHY ANTERIOR INFARCT, AGE INDETERMINATE : Confirmed by: Herber Morrison 05-Apr-2017 08:58:18
== END 2017-04-03 16:54 | disposition home or self-care (01) ==
LOC: ER 12:17
DX: R53.1 Weakness (principal); I10 Essential (primary) hypertension; Z87.01 Personal history of pneumonia (recurrent); Z86.79 Personal history of other diseases of the circulatory system; Z95.2 Presence of prosthetic heart valve; Z79.01 Long term (current) use of anticoagulants; Z79.82 Long term (current) use of aspirin; Z88.8 Allergy status to other drugs, medicaments and biological substances; Z95.1 Presence of aortocoronary bypass graft
CPT/HCPCS: 36415; 80053; 81001; 82550; 82553; 84484; 85025; 85610; 87040; 87086; 93005; 93010; 99285

== ENCOUNTER 2017-09-16 11:37 | Inpatient (IN) | payer MEDICARE, OTHER ==
[2017-09-16] MEDS ORDERED: DILTIAZEM HCL INJ 25 MG/5 ML VIAL IV ONE (12:07)
[2017-09-16] MEDS ORDERED: DILTIAZEM HCL/D5W 125 MG/125 ML RTUINJ IV PRN (12:10)
[2017-09-16 12:38] LABS: ABSOLUTE BASOPHILS # (AUTO) 0.1 10^3/uL (0.0-0.2); ABSOLUTE EOSINOPHILS # (AUTO) 0.2 10^3/uL (0.0-0.6); ABSOLUTE LYMPHOCYTES (AUTO) 1.5 10^3/uL (0.5-4.7); ABSOLUTE MONOCYTES (AUTO) 0.6 10^3/uL (0.1-1.4); ABSOLUTE NEUT (AUTO) 5.2 10^3/uL (1.7-8.2); BASOPHILS % (AUTO) 0.8 % (0-2); EOSINOPHILS % (AUTO) 2.4 % (0-6); HEMATOCRIT 37.7 % (36.0-47.0); HGB HCT DIFFERENCE 1.3; LYMPHOCYTES % (AUTO) 20.2 % (13-45); MEAN CORPUSCULAR HEMOGLOBIN 32.2 pg (27.0-33.4); MEAN CORPUSCULAR HGB CONC 34.4 g/dL (32.0-36.0); MEAN CORPUSCULAR VOLUME 94 fl (80-97); MONOCYTES % (AUTO) 8.5 % (3-13); RED BLOOD COUNT 4.03 10^6/uL (3.72-5.28); RED CELL DISTRIBUTION WIDTH 13.4 % (11.5-14.0); SEGMENTED NEUTROPHILS % (AUTO) 68.1 % (42-78); WHITE BLOOD COUNT 7.7 10^3/uL (4.0-10.5)
[2017-09-16 12:38] LABS: APPEARANCE,URINE CLEAR; BILIRUBIN,URINE NEGATIVE (NEGATIVE); GLUCOSE, URINE NEGATIVE (NEGATIVE); KETONES,URINE NEGATIVE (NEGATIVE); LEUKOCYTE ESTERASE,URINE NEGATIVE (NEGATIVE); NITRITE,URINE NEGATIVE (NEGATIVE); PROTEIN,URINE NEGATIVE (NEGATIVE); URINE SPECIFIC GRAVITY 1.003; UROBILINOGEN,URINE NEGATIVE mg/dL (<2.0)
[2017-09-16 12:44] LABS: PROTHROMBIN TIME 42.6 SEC (11.4-15.4)
[2017-09-16 13:02] LABS: ALBUMIN 4.2 g/dL (3.5-5.0); ANION GAP 8 (5-19); BILIRUBIN,DIRECT 0.5 mg/dL (0.0-0.4); BILIRUBIN,TOTAL 0.9 mg/dL (0.2-1.3); CALCIUM 9.3 mg/dL (8.4-10.2); CARBON DIOXIDE 28 mmol/L (22-30); CHLORIDE 105 mmol/L (98-107); CREATININE RESULT 0.95 mg/dL (0.52-1.25); GLUCOSE 97 mg/dL (75-110); SODIUM 140.8 mmol/L (137-145); TOTAL PROTEIN 7.4 g/dL (6.3-8.2)
[2017-09-16 13:14] LABS: CREATINE KINASE MB 1.9 ng/mL (<4.55); TROPONIN I 0.023 ng/mL
[2017-09-16 13:17] LABS: BLOOD UREA NITROGEN 21 mg/dL (7-20); POTASSIUM 4.9 mmol/L (3.6-5.0)
[2017-09-16 13:18] LABS: ALANINE AMINOTRANSFERASE 28 U/L (9-52); ALKALINE PHOSPHATASE 79 U/L (38-126); ASPARTATE AMINO TRANSFERASE 48 U/L (14-36)
--- NOTE | 2017-09-16 14:02 | ER Document Report ---
ED General - General Chief Complaint: Arrhythmia Stated Complaint: FAST HEART RATE Time Seen by Provider: 09/16/17 11:52 Notes: Patient says that her heart has been racing since last night. She said that she was able to go to sleep and slept well last night. This a.m., she says that she is noticing her heart racing again and feeling tired. Denies any chest pains, however. No recent illness. Has a little bit of shortness of breath. Denies any fevers or chills. Patient was admitted to this hospital in February of this year for the flu, pneumonia, and congestive heart failure. Patient has a history of bypass cardiac surgery as well as aortic valve replaced with a mechanical valve. She is on Coumadin. No history of COPD. History of hypertension. TRAVEL OUTSIDE OF THE [place] IN LAST 30 DAYS: No - Related Data Allergies/Adverse Reactions: lisinopril Allergy (Verified 02/02/17 01:47) spironolactone Allergy (Verified 09/16/17 13:15) Home Medications: Current Home Medications Fluorometholone 5 ml OP BID 09/16/17 [History] Past Medical History - Social History Smoking Status: Never Smoker Chew tobacco use (# tins/day): No Frequency of alcohol use: None Drug Abuse: None Family History: Reviewed & Not Pertinent, Hypertension - Past Medical History Cardiac Medical History: Reports: Hx Atrial Fibrillation, Hx Congestive Heart Failure, Hx Hypertension Denies: Hx Heart Attack Pulmonary Medical History: Reports: Hx Pneumonia - 02/2017 Denies: Hx Asthma, Hx COPD Infectious Medical History: Denies: Hx Hepatitis Past Surgical History: Reports: Hx Cardiac Surgery - aortic mechanical valve, Hx Open Heart Surgery - 2001, bypass x2 mechanical aortic valve - Immunizations Hx Diphtheria, Pertussis, Tetanus Vaccination: Yes Review of Systems - Review of Systems Notes: REVIEW OF SYSTEMS: CONSTITUTIONAL : Denies fever. Feels weak and tired. EENT: Denies eye, ear, nose or mouth or throat pain or other symptoms. CARDIOVASCULAR: Denies chest pain. RESPIRATORY: Feels some shortness of breath, but no significant cough or chest congestion. GASTROINTESTINAL: Denies abdominal pain or nausea, vomiting, or diarrhea. GENITOURINARY: Denies difficulty or painful urinating, urinary frequency, blood in urine. MUSCULOSKELETAL: Denies back or neck pain. Denies joint pain or swelling. SKIN: Denies rash or skin lesions. NEUROLOGICAL: Denies LOC or altered mental status. Denies headache. Denies sensory loss or motor deficits. ALL OTHER SYSTEMS REVIEWED AND NEGATIVE. Physical Exam - Vital signs Vitals: Resp Pulse Ox 22 H 95 09/16/17 12:07 09/16/17 12:07 Interpretation: Tachycardic - Irregular at about 135/min.. No: Hypoxic, Febrile - Notes Notes: PHYSICAL EXAMINATION: GENERAL: Well-appearing, in no acute distress. HEAD: Atraumatic, normocephalic. EYES: Pupils equal round and reactive to light, extraocular movements intact. ENT: oropharynx clear without exudates. Moist mucous membranes. NECK: Normal range of motion, supple. LUNGS: Breath sounds clear and equal bilaterally. HEART: Irregularly irregular tachycardia at about 135 bpm. ABDOMEN: Soft, nontender. No guarding or rebound. BACK: No tenderness throughout entire back. EXTREMITIES: Normal range of motion without pain. No significant pretibial edema. Negative Homans bilaterally. NEUROLOGICAL: Normal speech, normal gait. Normal sensory, motor, and reflex exams. Awake, alert, and oriented x3. Cranial nerves normal. PSYCH: Normal mood, normal affect. SKIN: Warm, dry, no rashes. Course - Re-evaluation Re-evalutation: 09/16/17 14:03 Patient was started on a Cardizem drip initiated with a Cardizem bolus. Lab studies were ordered and nothing significantly abnormal. Hospitalist will be contacted to admit the patient. 09/16/17 14:06 Heart rate has now slowed to about 60/min. Blood pressure remained stable. I have actually decreased the drip back from 10 mg/h to 5 mg/h. - Vital Signs Vital signs: Temp Pulse Resp BP Pulse Ox 97.8 F 58 L 18 132/87 H 99 09/16/17 18:12 09/16/17 18:12 09/16/17 18:12 09/16/17 18:12 09/16/17 18:12 - Laboratory Result Diagrams: 09/16/17 12:26 09/16/17 12:26 Laboratory results interpreted by me: 09/16/17 09/16/17 09/16/17 12:26 12:26 12:26 PT 42.6 H BUN 21 H Est GFR (Non-Af Amer) 56 L Direct Bilirubin 0.5 H AST 48 H NT-Pro-B Natriuret Pep 4870 H - Diagnostic Test Radiology results interpreted by me: 09/16/17 14:04 Chest x-ray shows slight cardiomegaly but otherwise unremarkable. Critical Care Note - Critical Care Note Total time excluding time spent on procedures (mins): 45 Discharge - Discharge Clinical Impression: Atrial fibrillation with RVR Condition: Stable Disposition: ADMITTED INPATIENT Admitting Provider: Hospitalist Unit Admitted: [facility]
--- NOTE | 2017-09-16 14:10 | RADIOLOGY REPORT (SQ) ---
EXAM DESCRIPTION: CHEST SINGLE VIEW COMPLETED DATE/TIME: 09/16/2017 1:45 pm REASON FOR STUDY: Short of breath and rapid heartbeat. COMPARISON: 04/01/2017 NUMBER OF VIEWS: One view. TECHNIQUE: Single frontal radiographic view of the chest acquired. LIMITATIONS: None. FINDINGS: LUNGS AND PLEURA: No opacities, masses or pneumothorax. No pleural effusion. Attenuated bl ood vessels and flattened mukesh-diaphragms. MEDIASTINUM AND HILAR STRUCTURES: No masses. Contour normal. HEART AND VASCULAR STRUCTURES: Heart normal in size. Normal vasculature. BONES: No acute findings. HARDWARE: CABG. OTHER: No other significant finding. IMPRESSION: COPD. NO ACUTE RADIOGRAPHIC FINDING IN THE CHEST. TECHNICAL DOCUMENTATION: JOB ID: [id number] [employer]- All Rights Reserved
--- NOTE | 2017-09-16 14:16 | EKG REPORT ---
SEVERITY:- ABNORMAL ECG - ATRIAL FIBRILLATION LVH WITH SECONDARY REPOLARIZATION ABNORMALITY BORDERLINE PROLONGED QT INTERVAL : Confirmed by: Herber Morrison 16-Sep-2017 14:15:53
[2017-09-16] MEDS ORDERED: ACETAMINOPHEN 325 MG TABLET PO PRN (15:02)
[2017-09-16] MEDS ORDERED: ONDANSETRON HCL INJ/PF 4 MG/2 ML SDV IV PRN (15:02)
[2017-09-16] MEDS ORDERED: DIAZEPAM 5 MG TABLET PO PRN (15:09)
--- NOTE | 2017-09-16 15:45 | PDOC H&P ---
History of Present Illness Admission Date/PCP: MONCHO FAM NP Patient complains of: Heart racing and weakness History of Present Illness: Patient is an 82-year-old woman with history of aortic valve replacement, atrial fibrillation, congestive heart failure, hypertension presented to the hospital with complaint of heart racing associated with weakness that started last night while she was doing her usual chores associated with shortness of breath. She denies having any dizziness no LOC, no chest pain. She was able to sleep last night and woke this morning with same symptoms, heart palpitation and feeling tired. 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 She reports feeling stressed. Chest x-ray on presentation negative for acute finding. First set of troponin negative and BNP of 4000. Hospitalist consulted for admission for atrial fibrillation with RVR. She was started on Cardizem drips and HR was in 60-70's and SBP 130's during my visit. Seen and examined in ED and on her back to the bathroom, she reports feeling much better and her symptoms much improved. 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 Past Medical History Cardiac Medical History: Reports: Atrial Fibrillation, Congestive Heart Failure , Hypertension Denies: Myocardial Infarction Pulmonary Medical History: Reports: Pneumonia - 02/2017 Denies: Asthma, Chronic Obstructive Pulmonary Disease (COPD) GI Medical History: Denies: Hepatitis Hematology: Denies: Anemia, Sickle Cell Disease Social History Information Source: Patient Smoking Status: Former Smoker Frequency of Alcohol Use: Rare - on holidays Hx Recreational Drug Use: No Drugs: None Hx Prescription Drug Abuse: No Family History Family History: Reviewed & Not Pertinent, CAD - Siblings, Hypertension, Malignancy - skin cancer- son Parental Family History Reviewed: Yes Children Family History Reviewed: Yes Sibling(s) Family History Reviewed.: Yes Medication/Allergy Home Medications: Aspirin [Aspirin 81 mg Chewable Tablet] 81 mg PO DAILY 02/02/17 Carvedilol [Coreg 25 mg Tablet] 25 mg PO Q12 02/02/17 Losartan Potassium [Cozaar 50 mg Tablet] 50 mg PO DAILY 02/02/17 Warfarin Sodium [Coumadin 5 mg Tablet] 5 mg PO DAILY 02/02/17 Atorvastatin Calcium [Lipitor 10 mg Tablet] 10 mg PO QHS tablet 02/07/17 Diazepam [Valium 5 mg Tablet] 2.5 mg PO BIDP PRN #10 tablet 02/07/17 Fluorometholone 5 ml OP BID 09/16/17 Allergies/Adverse Reactions: lisinopril Allergy (Verified 02/02/17 01:47) spironolactone Allergy (Verified 09/16/17 13:15) Review of Systems Constitutional: PRESENT: weakness, other - tiredness. ABSENT: chills, fever(s) , headache(s) Eyes: ABSENT: visual disturbances Ears: ABSENT: hearing changes Nose, Mouth, and Throat: ABSENT: mouth pain Cardiovascular: PRESENT: edema, palpitations. ABSENT: chest pain, dyspnea on exertion Respiratory: ABSENT: cough, hemoptysis Gastrointestinal: PRESENT: vomiting. ABSENT: abdominal pain, diarrhea, dysphagia, nausea Genitourinary: ABSENT: dysuria Musculoskeletal: ABSENT: back pain, muscle weakness Neurological: ABSENT: abnormal gait, abnormal speech, confusion, focal weakness , memory loss, weakness Endocrine: ABSENT: heat intolerance, polyphagia, polyuria Hematologic/Lymphatic: ABSENT: easy bruising Physical Exam Vital Signs: Temp Pulse Resp BP Pulse Ox 7 L 132/43 H 94 09/16/17 14:21 09/16/17 14:21 09/16/17 14:21 Intake & Output 09/15/17 09/16/17 09/17/17 06:59 06:59 06:59 Weight 58.241 kg General appearance: PRESENT: no acute distress, well-nourished Head exam: PRESENT: atraumatic, normocephalic Eye exam: PRESENT: conjunctiva pink, EOMI. ABSENT: scleral icterus Mouth exam: PRESENT: moist, tongue midline Neck exam: ABSENT: JVD, thyromegaly Respiratory exam: PRESENT: clear to auscultation jacob. ABSENT: rales, rhonchi, wheezes Cardiovascular exam: PRESENT: irregular rhythm. ABSENT: diastolic murmur, rubs Pulses: PRESENT: normal dorsalis pedis pul Vascular exam: PRESENT: normal capillary refill GI/Abdominal exam: PRESENT: normal bowel sounds, soft. ABSENT: distended, guarding, mass, organolmegaly, rebound, tenderness Rectal exam: PRESENT: deferred Extremities exam: PRESENT: full ROM. ABSENT: calf tenderness, clubbing, pedal edema Musculoskeletal exam: PRESENT: ambulatory Neurological exam: PRESENT: alert, awake, oriented to person, oriented to place , oriented to time, oriented to situation. ABSENT: motor sensory deficit Psychiatric exam: PRESENT: appropriate affect, normal mood. ABSENT: homicidal ideation, suicidal ideation Skin exam: PRESENT: dry, warm. ABSENT: cyanosis, rash Results Laboratory Results: 09/16/17 12:26 09/16/17 12:26 09/16/17 09/16/17 09/16/17 12:05 12:26 12:26 WBC 7.7 RBC 4.03 Hgb 13.0 Hct 37.7 MCV 94 MCH 32.2 MCHC 34.4 RDW 13.4 Plt Count 155 Seg Neutrophils % 68.1 Lymphocytes % 20.2 Monocytes % 8.5 Eosinophils % 2.4 Basophils % 0.8 Absolute Neutrophils 5.2 Absolute Lymphocytes 1.5 Absolute Monocytes 0.6 Absolute Eosinophils 0.2 Absolute Basophils 0.1 Sodium 140.8 Potassium 4.9 Chloride 105 Carbon Dioxide 28 Anion Gap 8 BUN 21 H Creatinine 0.95 Est GFR ( Amer) > 60 Est GFR (Non-Af Amer) 56 L Glucose 97 Calcium 9.3 Total Bilirubin 0.9 AST 48 H ALT 28 Alkaline Phosphatase 79 Total Protein 7.4 Albumin 4.2 Urine Color STRAW Urine Appearance CLEAR Urine pH 7.0 Ur Specific [place] 1.003 Urine Protein NEGATIVE Urine Glucose (UA) NEGATIVE Urine Ketones NEGATIVE Urine Blood NEGATIVE Urine Nitrite NEGATIVE Ur Leukocyte Esterase NEGATIVE Urine WBC (Auto) 1 Urine RBC (Auto) 0 09/16/17 12:26 CK-MB (CK-2) 1.90 Troponin I 0.023 NT-Pro-B Natriuret Pep 4870 H Impressions: Chest X-Ray 09/16/17 13:34 IMPRESSION: COPD. NO ACUTE RADIOGRAPHIC FINDING IN THE CHEST. Assessment & Plan - Diagnosis (1) Atrial fibrillation with RVR Is this a current diagnosis for this admission?: Yes Plan: Started on Cardizem drip First set of troponin negative and continue to trend Hg Plan to transition to PO Cardizem Check TSH, magnesium level and echocardiogram She is already anticoagulated Cards consult (2) H/O aortic valve replacement Is this a current diagnosis for this admission?: Yes Plan: On Coumadin 5 mg PO daily May need to hold tonight and check INR in am (3) Coronary artery disease Qualifiers: Coronary Disease-Associated Artery/Lesion type: [place] artery [place] vs. transplanted heart: [place] heart Associated angina: without angina Qualified Code(s): I25.10 - Atherosclerotic heart disease of [place] coronary artery without angina pectoris Is this a current diagnosis for this admission?: Yes Plan: Continue ASA, lipitor and Coreg and Losartan held Watch BP for need to reduce Coreg (4) Diastolic CHF Is this a current diagnosis for this admission?: Yes Plan: Appears compensated No diuretics listed on home list (5) Hyperlipidemia Is this a current diagnosis for this admission?: Yes Plan: Continue Lipitor (6) DVT prophylaxis Is this a current diagnosis for this admission?: Yes Plan: Already being anticoagulated - Time Time Spent: 50 to 70 Minutes Medications reviewed and adjusted accordingly: Yes Anticipated discharge: Home
[2017-09-16] MEDS: DILTIAZEM HCL 30 MG TABLET PO SCH (17:35)
[2017-09-16] MEDS ORDERED: FLUOROMETHOLONE OP SCH (18:00)
--- NOTE | 2017-09-16 21:47 | PDOC CONSULTATION ---
Consultation Consult Date: 09/16/17 Attending physician:: SOLA ROYTEDENITA Consult reason:: Afib History of Present Illness Admission Date/PCP: 09/16/17 15:54 MONCHO FAM NP Patient complains of: Shortness of breath and palpitations History of Present Illness: Patient is an 82-year-old woman with history of aortic valve replacement, atrial fibrillation, congestive heart failure, hypertension presented to the hospital with complaint of heart racing associated with weakness that started last night while she was doing her usual chores associated with shortness of breath. She denies having any dizziness no LOC, no chest pain. She was able to sleep last night and woke this morning with same symptoms, heart palpitation and feeling tired. 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 She reports feeling stressed. Chest x-ray on presentation negative for acute finding. First set of troponin negative and BNP of 4000. Hospitalist consulted for admission for atrial fibrillation with RVR. She was started on Cardizem drips and HR was in 60-70's and SBP 130's during my visit. Seen and examined in ED and on her back to the bathroom, she reports feeling much better and her symptoms much improved. 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 Patient was seen in the evening. At that time she had converted back to sinus rhythm. She denied any chest pain. She looked comfortable and denied any shortness of breath. The above history was reviewed and confirmed. Patient denied any chest pain, fevers chills, any prolonged travel recently, any history of prior strokes or pulmonary embolism. Past Medical History Cardiac Medical History: Reports: Atrial Fibrillation, Congestive Heart Failure , Hypertension Denies: Myocardial Infarction Pulmonary Medical History: Reports: Pneumonia - 02/2017 Denies: Asthma, Chronic Obstructive Pulmonary Disease (COPD) GI Medical History: Denies: Hepatitis Hematology: Denies: Anemia, Sickle Cell Disease Past Surgical History Past Surgical History: Reports: Valve Replacement - Aortic valve replacement with mechanical valve Denies: Amputation Social History Information Source: Patient Smoking Status: Never Smoker Last Time Smoked: 1982 Frequency of Alcohol Use: None Hx Recreational Drug Use: No Drugs: None Hx Prescription Drug Abuse: No Family History Family History: Hypertension Parental Family History Reviewed: Yes Children Family History Reviewed: Yes Sibling(s) Family History Reviewed.: Yes Medication/Allergy Home Medications: Aspirin [Aspirin 81 mg Chewable Tablet] 81 mg PO DAILY 02/02/17 Carvedilol [Coreg 25 mg Tablet] 25 mg PO Q12 02/02/17 Warfarin Sodium [Coumadin 5 mg Tablet] 5 mg PO DAILY 02/02/17 Atorvastatin Calcium [Lipitor 10 mg Tablet] 10 mg PO QHS tablet 02/07/17 Diazepam [Valium 5 mg Tablet] 2.5 mg PO BIDP PRN #10 tablet 02/07/17 Fluorometholone 5 ml OP BID 09/16/17 Diltiazem HCl [Cardizem Cd 120 mg Capsule] 120 mg PO DAILY #90 cap.sr.24h Allergies/Adverse Reactions: lisinopril Allergy (Verified 02/02/17 01:47) spironolactone Allergy (Verified 09/16/17 13:15) Physical Exam Vital Signs: Temp Pulse Resp BP Pulse Ox 97.9 F 60 18 134/36 H 97 09/16/17 19:38 09/16/17 19:38 09/16/17 19:38 09/16/17 19:38 09/16/17 19:38 Intake & Output 09/15/17 09/16/17 09/17/17 06:59 06:59 06:59 Weight 54.5 kg General appearance: PRESENT: no acute distress, well-developed, well-nourished Head exam: PRESENT: atraumatic, normocephalic Eye exam: PRESENT: conjunctiva pink, EOMI, PERRLA. ABSENT: scleral icterus Ear exam: PRESENT: normal external ear exam Mouth exam: PRESENT: moist, tongue midline Neck exam: ABSENT: carotid bruit, JVD, lymphadenopathy, thyromegaly Respiratory exam: PRESENT: clear to auscultation jacob. ABSENT: rales, rhonchi, wheezes Cardiovascular exam: PRESENT: RRR, +S1 - N, +S2 - N, systolic murmur - 2/6 ESM AORTIC AREA. ABSENT: diastolic murmur, rubs Pulses: PRESENT: normal dorsalis pedis pul, +2 pedal pulses bilateral Vascular exam: PRESENT: normal capillary refill GI/Abdominal exam: PRESENT: normal bowel sounds, soft. ABSENT: distended, guarding, mass, organolmegaly, rebound, tenderness Rectal exam: PRESENT: deferred Extremities exam: PRESENT: full ROM. ABSENT: calf tenderness, clubbing, pedal edema Neurological exam: PRESENT: alert, awake, oriented to person, oriented to place , oriented to time, oriented to situation, CN II-XII grossly intact. ABSENT: motor sensory deficit Psychiatric exam: PRESENT: appropriate affect, normal mood. ABSENT: homicidal ideation, suicidal ideation Skin exam: PRESENT: dry, intact, warm. ABSENT: cyanosis, rash Results Laboratory Results: 09/16/17 09/16/17 18:15 18:15 Magnesium 2.0 TSH 0.66 09/16/17 18:15 Troponin I 0.024 EKG Comments: EKG: NSR, NON SP ST-T CHANGES Impressions: Chest X-Ray 09/16/17 13:34 IMPRESSION: COPD. NO ACUTE RADIOGRAPHIC FINDING IN THE CHEST. Assessment & Plan - Diagnosis (1) Atrial fibrillation with RVR Is this a current diagnosis for this admission?: Yes (2) Congestive heart failure Qualifiers: Congestive heart failure type: unspecified congestive heart failure type Congestive heart failure chronicity: unspecified congestive heart failure chronicity Qualified Code(s): I50.9 - Heart failure, unspecified Is this a current diagnosis for this admission?: Yes (3) Hyperlipidemia Is this a current diagnosis for this admission?: Yes (4) Coronary artery disease Qualifiers: Coronary Disease-Associated Artery/Lesion type: [place] artery [place] vs. transplanted heart: [place] heart Associated angina: without angina Qualified Code(s): I25.10 - Atherosclerotic heart disease of [place] coronary artery without angina pectoris Is this a current diagnosis for this admission?: Yes (5) H/O aortic valve replacement Is this a current diagnosis for this admission?: Yes - Notes Notes: Converted to SR. Continue with cardiazem, Coreg and chr anticoagulation Atrial fibrillation: Patient has converted spontaneously to sinus rhythm. Currently maintaining sinus rhythm. Cardizem drip discontinued. Patient currently on Cardizem 30 mg p.o. every 6. Could switch to Cardizem CD 120 p.o. daily and then this can be continued on discharge. Patient to continue on carvedilol at her home dose. Patient already on Coumadin for prosthetic mechanical valve. That should be continued. INR goal should be between 2.5- 3.0. Mechanical prosthetic aortic valve: Clinically seems to be functioning normally. Coronary artery disease: Patient has history of coronary artery bypass graft surgery. Currently stable without any angina type symptoms. Dyslipidemia: Continue antilipid therapy. CHF: BNP is elevated. Chest x-ray showed mild pulmonary vascular redistribution. Recommend small p.o. dose of diuretics. A 2D echo was ordered but still pending. Patient to report any further problems - Time Time Spent: 30 to 50 Minutes - CODE STATUS was discussed, patient remains full code. Surrogate decision-maker patient's and sons. Multiple medical problems were addressed. More than 50% of the time spent coordinating care, discussing management plans with involved caregivers. Management plans discussed with involved personnels. Medical decision making was of moderate to high complexity, patient's has multiple comorbidities. Medications reviewed and adjusted accordingly: Yes
[2017-09-16] MEDS ORDERED: FAMOTIDINE 20 MG TABLET PO SCH (22:00)
[2017-09-16] MEDS: ATORVASTATIN CALCIUM 10 MG TABLET PO SCH (22:14)
[2017-09-16] MEDS: FAMOTIDINE 20 MG TABLET PO SCH (22:14)
[2017-09-16] MEDS: CARVEDILOL 12.5 MG TABLET PO SCH (22:14)
[2017-09-17] MEDS: DILTIAZEM HCL 30 MG TABLET PO SCH ×3 (00:04→11:13)
[2017-09-17 06:17] LABS: PROTHROMBIN TIME 44.4 SEC (11.4-15.4)
[2017-09-17 06:19] LABS: HEMATOCRIT 31.5 % (36.0-47.0); HGB HCT DIFFERENCE 0.9; MEAN CORPUSCULAR HEMOGLOBIN 31.9 pg (27.0-33.4); MEAN CORPUSCULAR HGB CONC 34.2 g/dL (32.0-36.0); MEAN CORPUSCULAR VOLUME 93 fl (80-97); RED BLOOD COUNT 3.38 10^6/uL (3.72-5.28); RED CELL DISTRIBUTION WIDTH 13.5 % (11.5-14.0); WHITE BLOOD COUNT 5.4 10^3/uL (4.0-10.5)
[2017-09-17 06:22] LABS: HEMOGLOBIN 10.8 g/dL (12.0-15.5)
--- NOTE | 2017-09-17 08:22 | Physician Advisory Note ---
Physician Advisor ProgressNote .: Pursuant to the plan for Dudley Knight, I have reviewed the medical record for this patient. Physician Advisor Statement: Please consider documenting, if you agree: 1. "Chronic diastolic CHF" - need to specify Ac/Chr/Ac-on-Chr as well as syst/ diast/[id number] for any dx of CHF 2. Medical necessity: if this Medicare pt is not yet sufficiently improved for d/c today, please document your concerns ("I am concerned about ....") and may then consider change to Inpatient status. Thanks! CK
[2017-09-17] MEDS: ASPIRIN 81 MG TABLET, CHEWABLE PO SCH (09:28)
[2017-09-17] MEDS: CARVEDILOL 12.5 MG TABLET PO SCH ×2 (09:28→21:43)
[2017-09-17] MEDS: FAMOTIDINE 20 MG TABLET PO SCH ×2 (09:28→21:43)
--- NOTE | 2017-09-17 09:45 | EKG REPORT ---
SEVERITY:- ABNORMAL ECG - SINUS RHYTHM PROBABLE ANTEROSEPTAL INFARCT, OLD BORDERLINE T WAVE ABNORMALITIES LATERAL LEADS ARE ALSO INVOLVED : Confirmed by: Herber Morrison 17-Sep-2017 09:44:03
--- NOTE | 2017-09-17 09:45 | EKG REPORT ---
SEVERITY:- ABNORMAL ECG - SINUS RHYTHM PROBABLE LVH WITH SECONDARY REPOL ABNRM : Confirmed by: Herber Morrison 17-Sep-2017 09:44:09
[2017-09-17] MEDS ORDERED: DILTIAZEM HCL 120 MG CAP.SR.24H PO ONE (18:00)
--- NOTE | 2017-09-17 18:18 | PDOC PROGRESS REPORT ---
Subjective Subjective:: Doing better, no more palpitations. Denies chest pain or shortness of breath at this time. Patient however has had diastolic blood pressure running in the 30s. Recheck with monitor revealed isolated no pressure in the 50s, which is better. Patient currently off diltiazem drip, and now Cardizem 30 mg every 6 hours. Denies orthopnea or PND, no lower extremity swelling. She reports having echo done about 6 weeks ago as outpatient. Physical Exam Vital Signs: Temp Pulse Resp BP Pulse Ox 97.9 F 56 L 16 135/34 H 98 09/17/17 15:14 09/17/17 15:14 09/17/17 15:14 09/17/17 15:14 09/17/17 15:14 Intake & Output 09/16/17 09/17/17 09/18/17 06:59 06:59 06:59 Intake Total 406 20 Balance 406 20 Weight 56.8 kg Exam: GENERAL: Well-developed, no acute distress CARDIOVASCULAR: Irregular, rate controlled, metallic heart sound LUNGS: CTA bilaterally ABDOMEN: Soft, NT, NL bowel sounds EXTREMITIES: No edema, clubbing, cyanosis NEUROLOGICAL: Alert, oriented x 3 Results Laboratory Results: 09/17/17 04:57 09/16/17 09/16/17 09/17/17 18:15 18:15 04:57 WBC 5.4 RBC 3.38 L Hgb 10.8 L D Hct 31.5 L MCV 93 MCH 31.9 MCHC 34.2 RDW 13.5 Plt Count 118 L Magnesium 2.0 TSH 0.66 09/16/17 18:15 Troponin I 0.024 Impressions: Chest X-Ray 09/16/17 13:34 IMPRESSION: COPD. NO ACUTE RADIOGRAPHIC FINDING IN THE CHEST. Assessment & Plan - Plan Summary Plan Summary: Assessment-- 1. Atrial fibrillation with rapid ventricular response 2. History of aortic valve replacement on Coumadin 3. Coronary artery disease 4. Chronic diastolic CHF 5. Hyperlipidemia 6. DVT prophylaxis--patient already on Coumadin Plan-- Patient was on Coreg 25 mg twice daily which has been restarted. Losartan held and Cardizem started. Patient now off Cardizem drip and on Cardizem 30 mg every 6 hours. Will change this to long-acting Cardizem CD 120 mg p.o. daily watch overnight to ensure her blood pressures doing well and no recurrent RVR with A. fib/Rate remains controlled. Hemoglobin slightly decreased today. We will follow-up in a.m. BNP elevated at 4870 by admission, but patient with no signs of acute exacerbation of diastolic heart failure. Plan is for discharge home in a.m. if remains stable.
--- NOTE | 2017-09-17 21:31 | PDOC PROGRESS REPORT ---
Subjective Progress Note for:: 09/17/17 Subjective:: Patient seems to be doing better with gradual improvement. Pt is denying any chest arm or neck discomfort. Patient denying any PND, orthopnea. Patient denied any sustained palpitations, dizziness, syncope, near syncope. Patient denying any fever chills. Patient denying any other significant discomfort. Patient is maintaining sinus rhythm. Review of systems: Rest review of systems negative. Medications: Medications have been reviewed. Physical Exam Vital Signs: Temp Pulse Resp BP Pulse Ox 97.9 F 58 L 20 148/39 H 99 09/17/17 20:07 09/17/17 20:07 09/17/17 20:07 09/17/17 20:07 09/17/17 20:07 Intake & Output 09/16/17 09/17/17 09/18/17 06:59 06:59 06:59 Intake Total 406 908 Balance 406 908 Weight 56.8 kg Exam: GENERAL: well-nourished and in no acute distress. Alert and oriented x3 HEAD: Atraumatic, normocephalic. EYES: Pupils equal round and reactive to light, extraocular movements intact, sclera anicteric, conjunctiva are normal. ENT: TMs normal, nares patent, oropharynx clear without exudates. Moist mucous membranes. No oral ulcerations or bleeding gums noted NECK: supple without lymphadenopathy. Trachea is central. No cervical or axillary lymphadenopathy noted. Carotids are 2+, JVD WNL LUNGS: Respiration seems nonlabored, no significant accessory muscle action noted. Breath sounds clear to auscultation bilaterally and equal noted. No wheezes rales or rhonchi noted. No significant dullness noted on percussion. CHEST: Palpation of the chest wall shows no significant chest wall tenderness. No other significant abnormalities noted. 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 ABDOMEN: Soft, no significant tenderness appreciated, normoactive bowel sounds. No guarding, no rebound. No rigidity noted . No masses appreciated. EXTREMITIES: Pedal pulses are 1-2+, no calf tenderness noted. No clubbing or cyanosis.trace to 1+ pedal edema noted NEUROLOGICAL: Focused neurological exam showed no significant neurologic deficit. Normal speech, no focal weakness appreciated. PSYCH: Normal mood, normal affect. Judgment and insight within normal limits. SKIN: No significant ecchymosis, rash, ulcerations or signs of pruritus noted. MUSCULOSKELETAL EXAM: No significant joint swelling noted. Results Laboratory Results: 09/17/17 04:57 09/17/17 04:57 WBC 5.4 RBC 3.38 L Hgb 10.8 L D Hct 31.5 L MCV 93 MCH 31.9 MCHC 34.2 RDW 13.5 Plt Count 118 L 09/16/17 18:15 Troponin I 0.024 Impressions: Chest X-Ray 09/16/17 13:34 IMPRESSION: COPD. NO ACUTE RADIOGRAPHIC FINDING IN THE CHEST. Assessment & Plan - Diagnosis (1) Atrial fibrillation with RVR Is this a current diagnosis for this admission?: Yes (2) Hyperlipidemia Is this a current diagnosis for this admission?: Yes (3) Coronary artery disease Qualifiers: Coronary Disease-Associated Artery/Lesion type: [place] artery [place] vs. transplanted heart: [place] heart Associated angina: without angina Qualified Code(s): I25.10 - Atherosclerotic heart disease of [place] coronary artery without angina pectoris Is this a current diagnosis for this admission?: Yes (4) H/O aortic valve replacement Is this a current diagnosis for this admission?: Yes (5) Congestive heart failure Qualifiers: Congestive heart failure type: unspecified congestive heart failure type Congestive heart failure chronicity: unspecified congestive heart failure chronicity Qualified Code(s): I50.9 - Heart failure, unspecified Is this a current diagnosis for this admission?: Yes - Notes Notes: Atrial fibrillation: Patient has converted spontaneously to sinus rhythm. Currently maintaining sinus rhythm. Patient today got a dose of Cardizem CD 120 mg p.o. daily. This can be continued on discharge. Patient to continue on carvedilol at her home dose. Patient already on Coumadin for prosthetic mechanical valve. That should be continued. INR goal should be between 2.5- 3.0. Mechanical prosthetic aortic valve: Clinically seems to be functioning normally. Coronary artery disease: Patient has history of coronary artery bypass graft surgery. Currently stable without any angina type symptoms. Dyslipidemia: Continue antilipid therapy. CHF: BNP is elevated. Chest x-ray showed mild pulmonary vascular redistribution. Recommend small p.o. dose of diuretics. A 2D echo was ordered but still pending. Patient to report any further problems - Time Time with patient: 15-25 minutes - CODE STATUS was discussed, patient remains full code. Surrogate decision-maker unchanged. Multiple medical problems were addressed. More than 50% of the time spent coordinating care, discussing management plans with involved caregivers. Management plans discussed with involved personnels. Medical decision making was of moderate to high complexity , patient's has multiple comorbidities. Medications reviewed and adjusted accordingly: Yes
[2017-09-17] MEDS: ATORVASTATIN CALCIUM 10 MG TABLET PO SCH (21:43)
[2017-09-18 05:46] LABS: PROTHROMBIN TIME 28.8 SEC (11.4-15.4)
[2017-09-18 09:21] VITALS: BP 132/40
--- NOTE | 2017-09-18 09:35 | EKG REPORT ---
SEVERITY:- ABNORMAL ECG - SINUS RHYTHM PROBABLE LVH WITH SECONDARY REPOL ABNRM ANTERIOR Q WAVES, POSSIBLY DUE TO LVH : Confirmed by: Herber Morrison 18-Sep-2017 09:34:38
[2017-09-18] MEDS ORDERED: DILTIAZEM HCL 120 MG CAP.SR.24H PO SCH (10:00)
[2017-09-18] MEDS: ASPIRIN 81 MG TABLET, CHEWABLE PO SCH (10:35)
[2017-09-18] MEDS: CARVEDILOL 12.5 MG TABLET PO SCH (10:35)
[2017-09-18] MEDS: FAMOTIDINE 20 MG TABLET PO SCH (10:35)
--- NOTE | 2017-09-18 11:36 | PDOC DISCHARGE SUMMARY ---
General - Admit/Disc Date/PCP Admission Date/Primary Care Provider: 09/16/17 15:54 MONCHO FAM NP Cardiology consult: Dr Morrison Discharge Date: 09/18/17 - Discharge Diagnosis (1) Atrial fibrillation with RVR Is this a current diagnosis for this admission?: Yes Summary: Patient was admitted with atrial fibrillation with rapid ventricular response, and was started on IV diltiazem infusion. The pulse became well controlled and patient was transitioned initially to Cardizem 30 mg p.o. every 6 hourly and then subsequently to Cardizem 120 mg daily. Cardiology recommendation. INR was supratherapeutic on admission at about 4, and Coumadin was held throughout hospitalization. INR is currently between 2-3, and patient will be resuming outpatient anticoagulation with Coumadin (2) Diastolic CHF Is this a current diagnosis for this admission?: Yes Summary: BNP was elevated on admission. However patient did not have any evidence of acute decompensation. An echocardiogram done on 08/26/2017 revealed an LVEF of 50% with a grade 2 diastolic dysfunction and prominent inferior wall hypokinesis. (3) Hyperlipidemia Is this a current diagnosis for this admission?: Yes Summary: Continue home statin (4) Coronary artery disease Is this a current diagnosis for this admission?: Yes Summary: Stable. Denies any active chest pain. 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 (5) H/O aortic valve replacement Is this a current diagnosis for this admission?: Yes Summary: The last echocardiogram from August 2017 revealed a well seated mechanical aortic valve replacement with a peak gradient of 18 mmHg and a mean gradient of 12 mmHg the peak systolic flow velocity across the aortic valve was noted to be 2.1 m/s - Additional Information Home Medications: Aspirin [Aspirin 81 mg Chewable Tablet] 81 mg PO DAILY 02/02/17 Carvedilol [Coreg 25 mg Tablet] 25 mg PO Q12 02/02/17 Warfarin Sodium [Coumadin 5 mg Tablet] 5 mg PO DAILY 02/02/17 Atorvastatin Calcium [Lipitor 10 mg Tablet] 10 mg PO QHS tablet 02/07/17 Diazepam [Valium 5 mg Tablet] 2.5 mg PO BIDP PRN #10 tablet 02/07/17 Fluorometholone 5 ml OP BID 09/16/17 Diltiazem HCl [Cardizem Cd 120 mg Capsule] 120 mg PO DAILY #90 cap.sr.24h History of Present Illness History of Present Illness: ANGEL SMITH is a 82 year old female with history of atrial fibrillation, dyslipidemia, coronary artery disease, who is status post mechanical aortic valve replacement. She presented to the emergency room with shortness of breath and was found to be in atrial fibrillation and rapid ventricular response. Please refer to previously dictated history and physical completed on admission Physical Exam Vital Signs: Temp Pulse Resp BP Pulse Ox 98.1 F 72 16 160/55 H 97 09/18/17 07:54 09/18/17 07:54 09/18/17 07:54 09/18/17 07:54 09/18/17 07:54 Intake & Output 09/17/17 09/18/17 09/19/17 06:59 06:59 06:59 Intake Total 406 1218 Balance 406 1218 Weight 56.8 kg 54.4 kg General appearance: PRESENT: no acute distress, well-developed, well-nourished Head exam: PRESENT: atraumatic, normocephalic Ear exam: PRESENT: normal external ear exam Neck exam: ABSENT: carotid bruit, JVD, lymphadenopathy, thyromegaly Respiratory exam: PRESENT: clear to auscultation jacob. ABSENT: rales, rhonchi, wheezes Cardiovascular exam: PRESENT: clicks, irregular rhythm, RRR, systolic murmur. ABSENT: rubs Pulses: PRESENT: normal dorsalis pedis pul Vascular exam: PRESENT: normal capillary refill GI/Abdominal exam: PRESENT: normal bowel sounds, soft. ABSENT: distended, guarding, mass, organolmegaly, rebound, tenderness Extremities exam: ABSENT: calf tenderness, clubbing, pedal edema Musculoskeletal exam: PRESENT: ambulatory Neurological exam: PRESENT: alert, awake, oriented to person, oriented to place , oriented to time, oriented to situation, CN II-XII grossly intact. ABSENT: motor sensory deficit Psychiatric exam: PRESENT: appropriate affect, normal mood. ABSENT: homicidal ideation, suicidal ideation Results Laboratory Results: 09/17/17 04:57 09/16/17 18:15 Troponin I 0.024 09/18/17 04:48 INR 2.56 Impressions: Chest X-Ray 09/16/17 13:34 IMPRESSION: COPD. NO ACUTE RADIOGRAPHIC FINDING IN THE CHEST. Qualifiers PATEINT BEING DISCHARGED WITH ANY OF THE FOLLOWING DIAGNOSIS?: No
--- NOTE | 2017-09-18 21:18 | PDOC PROGRESS REPORT ---
Subjective Progress Note for:: 09/18/17 Subjective:: Patient seems to be doing better and is ready for discharge. Pt is denying any chest arm or neck discomfort. Patient denying any PND, orthopnea. Patient denied any sustained palpitations, dizziness, syncope, near syncope. Patient denying any fever chills. Patient denying any other significant discomfort. Patient is maintaining sinus rhythm. Review of systems: Rest review of systems negative. Medications: Medications have been reviewed. Physical Exam Vital Signs: Temp Pulse Resp BP Pulse Ox 98.1 F 72 16 132/40 H 97 09/18/17 09:11 09/18/17 09:11 09/18/17 09:11 09/18/17 09:11 09/18/17 09:11 Intake & Output 09/17/17 09/18/17 09/19/17 06:59 06:59 06:59 Intake Total 406 1218 Balance 406 1218 Weight 56.8 kg 54.4 kg Exam: GENERAL: well-nourished and in no acute distress. Alert and oriented x3 HEAD: Atraumatic, normocephalic. EYES: Pupils equal round and reactive to light, extraocular movements intact, sclera anicteric, conjunctiva are normal. ENT: TMs normal, nares patent, oropharynx clear without exudates. Moist mucous membranes. No oral ulcerations or bleeding gums noted NECK: supple without lymphadenopathy. Trachea is central. No cervical or axillary lymphadenopathy noted. Carotids are 2+, JVD WNL LUNGS: Respiration seems nonlabored, no significant accessory muscle action noted. Breath sounds clear to auscultation bilaterally and equal noted. No wheezes rales or rhonchi noted. No significant dullness noted on percussion. CHEST: Palpation of the chest wall shows no significant chest wall tenderness. No other significant abnormalities noted. 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 Prosthetic valve sounds are crisp ABDOMEN: Soft, no significant tenderness appreciated, normoactive bowel sounds. No guarding, no rebound. No rigidity noted . No masses appreciated. EXTREMITIES: Pedal pulses are 1-2+, no calf tenderness noted. No clubbing or cyanosis.trace pedal edema noted NEUROLOGICAL: Focused neurological exam showed no significant neurologic deficit. Normal speech, no focal weakness appreciated. PSYCH: Normal mood, normal affect. Judgment and insight within normal limits. SKIN: No significant ecchymosis, rash, ulcerations or signs of pruritus noted. MUSCULOSKELETAL EXAM: No significant joint swelling noted. Results Laboratory Results: 09/17/17 04:57 09/16/17 18:15 Troponin I 0.024 EKG Comments: EKG shows sinus rhythm without any sustained tacky or bradyarrhythmias Impressions: Chest X-Ray 09/16/17 13:34 IMPRESSION: COPD. NO ACUTE RADIOGRAPHIC FINDING IN THE CHEST. Assessment & Plan - Diagnosis (1) Atrial fibrillation with RVR Is this a current diagnosis for this admission?: Yes (2) Congestive heart failure Qualifiers: Congestive heart failure type: unspecified congestive heart failure type Congestive heart failure chronicity: unspecified congestive heart failure chronicity Qualified Code(s): I50.9 - Heart failure, unspecified Is this a current diagnosis for this admission?: Yes (3) Hyperlipidemia Is this a current diagnosis for this admission?: Yes (4) Coronary artery disease Qualifiers: Coronary Disease-Associated Artery/Lesion type: [place] artery [place] vs. transplanted heart: [place] heart Associated angina: without angina Qualified Code(s): I25.10 - Atherosclerotic heart disease of [place] coronary artery without angina pectoris Is this a current diagnosis for this admission?: Yes (5) H/O aortic valve replacement Is this a current diagnosis for this admission?: Yes - Notes Notes: Patient has maintained sinus rhythm first day. At this point will continue with current regimen. CHF seems compensated. Prosthetic valve seems functioning normally. Dyslipidemia: Currently adequately managed. Patient can follow-up with me if she wishes. Discussed that chronic Coumadin therapy is very important and needs to be continued. INR goal should be between 2.5-3.5. - Time Time with patient: 15-25 minutes - More than 50% of the time spent coordinating care, discussing management plans with involved caregivers. Management plans discussed with involved personnels. Medical decision making was of moderate to high complexity, patient's has multiple comorbidities. Medications reviewed and adjusted accordingly: Yes
== END 2017-09-18 11:36 | disposition home or self-care (01) | DRG 309 ==
LOC: ER 11:37 → EH 15:54 → INTOOBSV 15:54 → 3W 17:56 → OBSVTOIN 09-18 09:45
PROVIDERS: ADMIT Internal Medicine; ATTEND Internal Medicine
DX: I48.91 Unspecified atrial fibrillation (principal); I50.32 Chronic diastolic (congestive) heart failure; I11.0 Hypertensive heart disease with heart failure; E78.5 Hyperlipidemia, unspecified; I25.10 Atherosclerotic heart disease of native coronary artery without angina pectoris; Z79.01 Long term (current) use of anticoagulants; Z79.82 Long term (current) use of aspirin; Z95.2 Presence of prosthetic heart valve; Z87.891 Personal history of nicotine dependence; Z82.49 Family history of ischemic heart disease and other diseases of the circulatory system
CPT/HCPCS: 36415; 71010; 80053; 81001; 82553; 83735; 83880; 84443; 84484; 85025; 85027; 85610; 87040; 93005; 93010; 96365; 96366; 96376; 99291; J3490

== ENCOUNTER → 2017-09-20 | Outpatient (CLI) | payer MEDICARE, OTHER ==
[2017-09-20 18:18] LABS: PROTHROMBIN TIME 24.5 SEC (11.4-15.4)
== END ==
LOC: LAB 15:51
PROVIDERS: ATTEND Hospitalist
DX: I48.0 Paroxysmal atrial fibrillation (principal); Z79.01 Long term (current) use of anticoagulants
CPT/HCPCS: 36415; 85610

== ENCOUNTER → 2018-02-10 | Outpatient (CLI) | payer MEDICARE, OTHER ==
[2018-02-10 08:31] LABS: ABSOLUTE EOSINOPHILS # (AUTO) 0.2 10^3/uL (0.0-0.6); ABSOLUTE LYMPHOCYTES (AUTO) 1.8 10^3/uL (0.5-4.7); ABSOLUTE MONOCYTES (AUTO) 0.5 10^3/uL (0.1-1.4); ABSOLUTE NEUT (AUTO) 3.3 10^3/uL (1.7-8.2); BASOPHILS % (AUTO) 0.7 % (0-2); EOSINOPHILS % (AUTO) 3.5 % (0-6); HEMATOCRIT 36.6 % (36.0-47.0); HEMOGLOBIN 12.2 g/dL (12.0-15.5); LYMPHOCYTES % (AUTO) 30.9 % (13-45); MEAN CORPUSCULAR HGB CONC 33.4 g/dL (32.0-36.0); MEAN CORPUSCULAR VOLUME 93 fl (80-97); MONOCYTES % (AUTO) 9.3 % (3-13); PLATELET COUNT 160 10^3/uL (150-450); RED BLOOD COUNT 3.94 10^6/uL (3.72-5.28); RED CELL DISTRIBUTION WIDTH 12.9 % (11.5-14.0); SEGMENTED NEUTROPHILS % (AUTO) 55.6 % (42-78); TOTAL CELLS COUNTED % (AUTO) 100 %; WHITE BLOOD COUNT 5.9 10^3/uL (4.0-10.5)
[2018-02-10 09:05] LABS: ALANINE AMINOTRANSFERASE 23 U/L (9-52); ALBUMIN 4.1 g/dL (3.5-5.0); ALKALINE PHOSPHATASE 68 U/L (38-126); ANION GAP 8 (5-19); ASPARTATE AMINO TRANSFERASE 35 U/L (14-36); BILIRUBIN,DIRECT 0.5 mg/dL (0.0-0.4); BILIRUBIN,TOTAL 0.6 mg/dL (0.2-1.3); BLOOD UREA NITROGEN 23 mg/dL (7-20); CALCIUM 9.9 mg/dL (8.4-10.2); CARBON DIOXIDE 34 mmol/L (22-30); CHLORIDE 99 mmol/L (98-107); CHOLESTEROL 158.91 mg/dL (0-200); GLUCOSE 104 mg/dL (75-110); POTASSIUM 4.7 mmol/L (3.6-5.0); SODIUM 140.7 mmol/L (137-145); TOTAL PROTEIN 7.1 g/dL (6.3-8.2); TRIGLYCERIDES 80 mg/dL (<150)
[2018-02-10 09:16] LABS: DIRECT LDL 75 mg/dL (<100)
== END ==
LOC: OD 07:33
PROVIDERS: ATTEND Physician Assistant Medical
DX: R06.00 Dyspnea, unspecified (principal); I10 Essential (primary) hypertension; E78.5 Hyperlipidemia, unspecified; I48.91 Unspecified atrial fibrillation
CPT/HCPCS: 36415; 80053; 80061; 83880; 85025

== ENCOUNTER 2018-06-15 00:21 | Observation (INO) | payer MEDICARE, OTHER ==
--- NOTE | 2018-06-15 00:41 | ER Document Report ---
ED Cardiac - General Stated Complaint: CHEST PRESSURE Time Seen by Provider: 06/15/18 00:25 Notes: Patient is an 83-year-old female that comes to the emergency department for chief complaint of palpitations and chest pain. She states that at about 11 PM she started feeling like her heart was beating irregularly, shortly after that she started feeling pressure in the center and left side of her chest, she was lying down. She denies nausea or vomiting, fever or chills, shortness of breath , radiation of the pain away from the center of her chest. She denies any current symptoms. She came by EMS, she was given 325 mg of aspirin, 2 sublingual nitroglycerin. She states discomfort had actually gone away before the nitroglycerin. Past medical history includes mechanical aortic valve on Coumadin, if atrial fibrillation, and she takes Lasix 20 mg daily. She states she was just taken off her Cardizem she is still taking carvedilol at a low dose , she missed her Lasix yesterday. Last cardiac catheterization was over 10 years ago, she has never had an HI. Her hearing screen coordinator is Dr. Morrison. TRAVEL OUTSIDE OF THE [place] IN LAST 30 DAYS: No - Related Data Allergies/Adverse Reactions: lisinopril Allergy (Verified 06/15/18 00:53) spironolactone Allergy (Verified 06/15/18 00:53) Past Medical History - General Information source: Patient - Social History Smoking Status: Never Smoker Frequency of alcohol use: None Drug Abuse: None Lives with: Alone Family History: Reviewed & Not Pertinent, Hypertension - Past Medical History Cardiac Medical History: Reports: Hx Atrial Fibrillation, Hx Congestive Heart Failure, Hx Hypertension Denies: Hx Heart Attack Pulmonary Medical History: Reports: Hx Pneumonia - 02/2017 Denies: Hx Asthma, Hx COPD GI Medical History: Denies: Hx Hepatitis Infectious Medical History: Denies: Hx Hepatitis Past Surgical History: Reports: Hx Cardiac Surgery - aortic mechanical valve, Hx Open Heart Surgery - 2001, bypass x2 mechanical aortic valve, Hx Valve Replacement - Aortic valve replacement with mechanical valve - Immunizations Hx Diphtheria, Pertussis, Tetanus Vaccination: Yes Review of Systems - Review of Systems Constitutional: No symptoms reported EENT: No symptoms reported Cardiovascular: See HPI Respiratory: No symptoms reported Gastrointestinal: No symptoms reported Genitourinary: No symptoms reported Female Genitourinary: No symptoms reported Musculoskeletal: No symptoms reported Skin: No symptoms reported Hematologic/Lymphatic: No symptoms reported Neurological/Psychological: No symptoms reported Physical Exam - Vital signs Vitals: Pulse Resp BP Pulse Ox 71 16 166/54 H 95 06/15/18 00:26 06/15/18 00:26 06/15/18 00:26 06/15/18 00:26 - Notes Notes: GENERAL: Alert, interacts well. No acute distress. HEAD: Normocephalic, atraumatic. EYES: Pupils equal, round, and reactive to light. Extraocular movements intact. ENT: Oral mucosa moist, tongue midline. NECK: Full range of motion. Supple. Trachea midline. LUNGS: Clear to auscultation bilaterally, no wheezes, rales, or rhonchi. No respiratory distress. HEART: Regular rate and rhythm with occasional extra systoles. Mechanical clicking murmur. ABDOMEN: Soft, non-tender. Non-distended. Bowel sounds present in all 4 quadrants. EXTREMITIES: Moves all 4 extremities spontaneously. Normal radial and dorsalis pedis pulses bilaterally. No cyanosis. There is slight bilateral pitting edema. BACK: no cervical, thoracic, lumbar midline tenderness. No saddle anesthesia, normal distal neurovascular exam. NEUROLOGICAL: Alert and oriented x3. Normal speech. [cranial nerves II through XII grossly intact]. PSYCH: Normal affect, normal mood. SKIN: Warm, dry, normal turgor. No rashes or lesions noted. Course - Re-evaluation Re-evalutation: EKG showing sinus rhythm at a rate of 68, PVCs, Q waves inferiorly, left axis deviation, no T-wave inversions or ST segment changes in consecutive leads. QTc 469. Chest x-ray unremarkable. CBC shows mild normocytic anemia, unremarkable otherwise. Chemistry generally unremarkable. Initial troponin is negative. On reevaluation patient remains asymptomatic, denies any repeat chest pain or any other symptoms at this time. Monitoring showing occasional PVCs but is otherwise unremarkable. Discussed with patient. She is requesting to stay overnight for monitoring before I discussed heart score. Her hearing screen coordinator is Dr. Morrison. She has not had a stress test or similar evaluation in over [address] Good, hospitalist, patient will be admitted to telemetry observation. - Vital Signs Vital signs: Temp Pulse Resp BP Pulse Ox 71 13 156/50 H 97 06/15/18 00:26 06/15/18 01:18 06/15/18 01:18 06/15/18 01:18 - Laboratory Result Diagrams: 06/15/18 00:36 06/15/18 00:36 Laboratory results interpreted by me: 06/15/18 06/15/18 06/15/18 00:36 00:36 00:36 RBC 3.40 L Hgb 10.8 L Hct 31.5 L Eosinophils % 6.5 H PT 28.8 H BUN 28 H Est GFR (Non-Af Amer) 52 L Discharge - Discharge Clinical Impression: Chest pain Qualifiers: Chest pain type: unspecified Qualified Code(s): R07.9 - Chest pain, unspecified Condition: Stable Disposition: ADMITTED OBSERVATION Admitting Provider: Hospitalist Unit Admitted: Telemetry Referrals: ROSALBA PASCAL PA-C [Primary Care Provider] - Follow up as needed
[2018-06-15 00:55] LABS: ABSOLUTE EOSINOPHILS # (AUTO) 0.4 10^3/uL (0.0-0.6); ABSOLUTE LYMPHOCYTES (AUTO) 1.8 10^3/uL (0.5-4.7); ABSOLUTE MONOCYTES (AUTO) 0.7 10^3/uL (0.1-1.4); ABSOLUTE NEUT (AUTO) 3.2 10^3/uL (1.7-8.2); BASOPHILS % (AUTO) 0.3 % (0-2); EOSINOPHILS % (AUTO) 6.5 % (0-6); HEMATOCRIT 31.5 % (36.0-47.0); HEMOGLOBIN 10.8 g/dL (12.0-15.5); LYMPHOCYTES % (AUTO) 29.8 % (13-45); MEAN CORPUSCULAR HEMOGLOBIN 31.8 pg (27.0-33.4); MEAN CORPUSCULAR HGB CONC 34.3 g/dL (32.0-36.0); MEAN CORPUSCULAR VOLUME 93 fl (80-97); MONOCYTES % (AUTO) 11.6 % (3-13); PLATELET COUNT 192 10^3/uL (150-450); RED CELL DISTRIBUTION WIDTH 13.1 % (11.5-14.0); SEGMENTED NEUTROPHILS % (AUTO) 51.8 % (42-78); TOTAL CELLS COUNTED % (AUTO) 100 %; WHITE BLOOD COUNT 6.2 10^3/uL (4.0-10.5)
[2018-06-15 01:03] LABS: INTERNATIONAL RATION (INR) 2.57; PROTHROMBIN TIME 28.8 SEC (11.4-15.4)
[2018-06-15 01:15] LABS: ALANINE AMINOTRANSFERASE 28 U/L (9-52); ALBUMIN 3.7 g/dL (3.5-5.0); ALKALINE PHOSPHATASE 65 U/L (38-126); ANION GAP 10 (5-19); ASPARTATE AMINO TRANSFERASE 35 U/L (14-36); BILIRUBIN,DIRECT 0.3 mg/dL (0.0-0.4); BILIRUBIN,TOTAL 0.6 mg/dL (0.2-1.3); BLOOD UREA NITROGEN 28 mg/dL (7-20); CALCIUM 8.8 mg/dL (8.4-10.2); CARBON DIOXIDE 29 mmol/L (22-30); CHLORIDE 99 mmol/L (98-107); CREATINE KINASE 78 U/L (30-135); GLUCOSE 101 mg/dL (75-110); POTASSIUM 4.1 mmol/L (3.6-5.0); SODIUM 138.4 mmol/L (137-145); TOTAL PROTEIN 6.5 g/dL (6.3-8.2)
[2018-06-15 01:27] LABS: CREATINE KINASE MB 1.25 ng/mL (<4.55)
--- NOTE | 2018-06-15 01:27 | RADIOLOGY REPORT (SQ) ---
CXR Clinical History: 83-year-old female with chest pain. Comparison: 16 September 2017 and April 01, 2017 Technique: 1 view of the chest submitted for review. Findings: Mediastinal wires are aligned and intact. There is a nodular density seen in the right lower lobe most likely representing a nipple shadow. The lungs are hyperaerated. The cardiac silhouette measures within normal. Pulmonary vascularity is unremarkable. Osseous structures are normal for age. Impression: 1. Nodular density in the right lower lobe most likely represents a nipple shadow. Short-term follow-up chest x-ray with nipple markers would help better delineate. 2. Pulmonary hyperinflation suggestive of COPD. No acute intrathoracic abnormality.
[2018-06-15 01:28] LABS: TROPONIN I < 0.012 ng/mL
[2018-06-15] MEDS ORDERED: NITROGLYCERIN 0.4 MG/TAB 25 TAB/BOTTLE SL PRN (01:50)
--- NOTE | 2018-06-15 05:52 | PDOC H&P ---
History of Present Illness Admission Date/PCP: 06/15/18 01:58 ROSALBA PASCAL PA-C Patient complains of: Palpitations History of Present Illness: ANGEL SMITH is a 83 year old female resented to the emergency department secondary to palpitations. Patient states she has a history of atrial fibrillation and aortic valve replacement and states last night as she was getting ready for bed her heart just did not feel right. Denies chest pain but felt a pressure-like sensation in her chest along with palpitation that was when she checked her blood pressure and noted systolically to be greater than 180. Denies chest pain, but did mild shortness of breath. States she was trying to get comfortable in bed lying flat made her feel worse at which point she decided to present to the emergency department for further workup and evaluation. 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 Past Medical History Cardiac Medical History: Reports: Atrial Fibrillation, Congestive Heart Failure , Hypertension Denies: Myocardial Infarction Cardiac History Note: Aortic valve replacement Pulmonary Medical History: Reports: Pneumonia - 02/2017 Denies: Asthma, Chronic Obstructive Pulmonary Disease (COPD) GI Medical History: Denies: Hepatitis Psychiatric Medical History: Comment Only: Depression - anxiety Hematology: Denies: Anemia, Sickle Cell Disease Past Surgical History Past Surgical History: Reports: Valve Replacement - Aortic valve replacement with mechanical valve Denies: Amputation Social History Information Source: Patient Lives with: Alone, Family Smoking Status: Former Smoker Last Time Smoked: quit 80's Frequency of Alcohol Use: None Hx Recreational Drug Use: No Drugs: None Hx Prescription Drug Abuse: No Family History Family History: Reviewed & Not Pertinent, Hypertension Parental Family History Reviewed: Yes Children Family History Reviewed: Yes Sibling(s) Family History Reviewed.: Yes Medication/Allergy Home Medications: Carvedilol [Coreg 25 mg Tablet] 3.125 mg PO Q12 02/02/17 Warfarin Sodium [Coumadin 5 mg Tablet] 5 mg PO ASDIR 02/02/17 Diazepam [Valium 5 mg Tablet] 2.5 mg PO BIDP PRN #10 tablet 02/07/17 Fluorometholone 5 ml OU BID 09/16/17 Aspirin [Aspirin EC] 81 mg PO QHS 06/15/18 Calcium Carbonate/Vitamin D3 [Calcium 600 + Vit D Tablet] 1 tab PO ACSUPPER 10/21 Furosemide [Lasix] 20 mg PO DAILY 06/15/18 Multivitamin [One-A-Day Essential] 1 each PO ACSUPPER 06/15/18 Rosuvastatin Calcium [Crestor 5 mg Tablet] 5 mg PO QHS 06/15/18 Sertraline HCl [Zoloft] 25 mg PO QHS 06/15/18 Ubidecarenone [Co Q10] 200 mg PO ACSUPPER 06/15/18 Warfarin Sodium 2.5 mg PO ASDIR 06/15/18 Allergies/Adverse Reactions: lisinopril Allergy (Verified 06/15/18 03:50) spironolactone Allergy (Verified 06/15/18 00:53) Review of Systems Constitutional: ABSENT: chills, fever(s), headache(s) Cardiovascular: PRESENT: chest pain, orthropnea, palpitations. ABSENT: edema Respiratory: PRESENT: dyspnea. ABSENT: cough, sputum Gastrointestinal: ABSENT: abdominal pain, nausea, vomiting Physical Exam Vital Signs: Temp Pulse Resp BP Pulse Ox 97.5 F 76 16 170/52 H 96 06/15/18 03:40 06/15/18 03:40 06/15/18 03:40 06/15/18 03:40 06/15/18 03:40 General appearance: PRESENT: no acute distress Head exam: PRESENT: atraumatic Eye exam: PRESENT: conjunctiva pink, EOMI, PERRLA Mouth exam: PRESENT: moist, neck supple, tongue midline Respiratory exam: PRESENT: clear to auscultation jacob. ABSENT: crackles, rhonchi , wheezes Cardiovascular exam: PRESENT: diastolic murmur, irregular rhythm Pulses: PRESENT: normal carotid pulses Vascular exam: PRESENT: normal capillary refill GI/Abdominal exam: PRESENT: normal bowel sounds, soft. ABSENT: distended, tenderness Rectal exam: PRESENT: deferred Extremities exam: PRESENT: full ROM. ABSENT: pedal edema Musculoskeletal exam: PRESENT: full ROM, normal inspection Neurological exam: PRESENT: alert, awake, oriented to person, oriented to place , oriented to time, CN II-XII grossly intact Psychiatric exam: PRESENT: normal mood Results Laboratory Results: 06/15/18 06/15/18 06/15/18 00:36 00:36 00:36 WBC 6.2 Hgb 10.8 L INR Creatinine 1.02 Troponin I < 0.012 06/15/18 00:36 WBC Hgb INR 2.57 Creatinine Troponin I Assessment & Plan - Diagnosis (1) Chest pain Qualifiers: Chest pain type: other chest pain Qualified Code(s): R07.89 - Other chest pain; R07.8 - Other chest pain Is this a current diagnosis for this admission?: Yes Plan: Patient to be admitted to cardiac telemetry for further observation. We will continue to trend patient's troponins every 6 hours 3 or 2 within normal limits. No acute ischemia noted on EKG. Initial set of troponins negative 1. Nitro, morphine as needed chest pain. Cardiology consultation pending for this a.m. Acute chest pain at this time. Patient appears to be resting comfortably and vital signs are stable. (2) Coronary artery disease with bypass Is this a current diagnosis for this admission?: Yes Plan: She states she has a history of two-vessel bypass which was performed at the same time as her aortic valve replacement. (3) H/O aortic valve replacement Is this a current diagnosis for this admission?: Yes Plan: Aortic valve replacement - Time Time Spent: 30 to 50 Minutes Medications reviewed and adjusted accordingly: Yes Anticipated discharge: Home Within: within 24 hours
[2018-06-15] MEDS ORDERED: ENOXAPARIN SODIUM INJ 40 MG/0.4 ML DISP.SYRIN SUBCUT SCH (10:00)
[2018-06-15] MEDS ORDERED: ASPIRIN 81 MG TABLET, ENT COATED PO SCH ×2 (10:00→22:00)
[2018-06-15] MEDS ORDERED: FAMOTIDINE 20 MG TABLET PO SCH (10:00)
--- NOTE | 2018-06-15 12:26 | PDOC PROGRESS REPORT ---
Subjective Progress Note for:: 06/15/18 Subjective:: Patient seems to be doing better. Patient is asking if she can be at all discharged. Pt is denying any chest arm or neck discomfort. Patient denying any PND, orthopnea. Patient denied any sustained palpitations, dizziness, syncope, near syncope. Patient denying any fever chills. Patient denying any other significant discomfort. Patient today claims that she did not have any chest discomfort or tightness just got a feeling of shortness of breath. Patient was admitted through the emergency department secondary to palpitations. Patient states she has a history of atrial fibrillation and aortic valve replacement and states last night as she was getting ready for bed her heart just did not feel right. Denies chest pain but felt a pressure-like sensation in her chest along with palpitation that was when she checked her blood pressure and noted systolically to be greater than 180. Denies chest pain , but did mild shortness of breath. States she was trying to get comfortable in bed lying flat made her feel worse at which point she decided to present to the emergency department for further workup and evaluation. She was recently seen by her ear specialist and had some of her medications adjusted. Patient is maintaining sinus rhythm. Review of systems: Rest review of systems negative. Medications: Medications have been reviewed. Reason For Visit: CHEST PAIN, RULE OUT [place] Physical Exam Vital Signs: Temp Pulse Resp BP Pulse Ox 98.1 F 73 18 176/51 H 96 06/15/18 07:55 06/15/18 07:55 06/15/18 07:55 06/15/18 07:55 06/15/18 07:55 Intake & Output 06/14/18 06/15/18 06/16/18 06:59 06:59 06:59 Output Total 500 Balance -500 Weight 52.3 kg Exam: GENERAL: well-nourished and in no acute distress. Alert and oriented x3 HEAD: Atraumatic, normocephalic. EYES: Pupils equal round and reactive to light, extraocular movements intact, sclera anicteric, conjunctiva are normal. ENT: TMs normal, nares patent, oropharynx clear without exudates. Moist mucous membranes. No oral ulcerations or bleeding gums noted NECK: supple without lymphadenopathy. Trachea is central. No cervical or axillary lymphadenopathy noted. Carotids are 2+, JVD WNL LUNGS: Respiration seems nonlabored, no significant accessory muscle action noted. Breath sounds clear to auscultation bilaterally and equal noted. No wheezes rales or rhonchi noted. No significant dullness noted on percussion. CHEST: Palpation of the chest wall shows no significant chest wall tenderness. 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 Prosthetic valve sounds are crisp. ABDOMEN: Soft, no significant tenderness appreciated, normoactive bowel sounds. No guarding, no rebound. No rigidity noted . No masses appreciated. EXTREMITIES: Pedal pulses are 1-2+, no calf tenderness noted. No clubbing or cyanosis. negative pedal edema noted NEUROLOGICAL: Focused neurological exam showed no significant neurologic deficit. Normal speech, no focal weakness appreciated. PSYCH: Normal mood, normal affect. Judgment and insight within normal limits. SKIN: No significant ecchymosis, skin is noted to be warm. MUSCULOSKELETAL EXAM: No significant acute joint swelling noted. Results Laboratory Results: 06/15/18 07:19 Troponin I 0.017 EKG Comments: Showed sinus rhythm, no acute ST-T wave changes are noted. Assessment & Plan - Diagnosis (1) Dyspnea Qualifiers: Dyspnea type: unspecified Qualified Code(s): R06.00 - Dyspnea, unspecified Is this a current diagnosis for this admission?: Yes (2) Hypertension Qualifiers: Hypertension type: essential hypertension Qualified Code(s): I10 - Essential (primary) hypertension Is this a current diagnosis for this admission?: Yes (3) Coronary artery disease with bypass Is this a current diagnosis for this admission?: Yes (4) H/O aortic valve replacement Is this a current diagnosis for this admission?: Yes (5) Hyperlipidemia Qualifiers: Hyperlipidemia type: unspecified Qualified Code(s): E78.5 - Hyperlipidemia , unspecified Is this a current diagnosis for this admission?: Yes - Notes Notes: Patient had a recent 2D echocardiogram performed. This showed normal LVEF. Mild mitral regurgitation was noted. Aortic mechanical valve seems to be functioning normally. Grade 2 diastolic dysfunction was noted. Dyspnea: cause not clear. Chest x-ray shows no evidence of CHF. Some COPD is noted. Any further evaluation can be completed as an outpatient. Hypertension: Blood pressure goal should be 140/90 or less. Currently reasonably well controlled. CAD with history of CABG: Currently no symptoms of angina. Cardiac enzymes are noted to be unremarkable. EKG is noted to be unremarkable. If patient does well on ambulation and if third troponin I is trending down, patient could be discharged with close cardiology follow-up as an outpatient early next week, in my office. History of aortic valve replacement: Mechanical valve seems to be functioning normally. She has regular Coumadin check at my office through point of exam method. Hyperlipidemia: Recommend statin therapy. LDL goal should be less than 70. - Time Time with patient: Greater than 35 minutes - More than 50% of the time spent coordinating care, discussing management plans with involved caregivers. Management plans discussed with involved personnels. Medical decision making was of moderate to high complexity, patient's has multiple comorbidities. Medications reviewed and adjusted accordingly: Yes
[2018-06-15 13:12] VITALS: BP 148/41
--- NOTE | 2018-06-15 14:52 | PDOC DISCHARGE SUMMARY ---
General - Admit/Disc Date/PCP Admission Date/Primary Care Provider: 06/15/18 01:58 ROSALBA PASCAL PA-C Discharge Date: 06/15/18 - Discharge Diagnosis (1) Chest pain Is this a current diagnosis for this admission?: Yes (2) Coronary artery disease with bypass Is this a current diagnosis for this admission?: Yes (3) H/O aortic valve replacement Is this a current diagnosis for this admission?: Yes - Additional Information Discharge Diet: Cardiac Discharge Activity: Activity As Tolerated Home Medications: Warfarin Sodium [Coumadin 5 mg Tablet] 5 mg PO SUTUWETHSA@0800 02/02/17 Fluorometholone 1 drop OU BID 09/16/17 Aspirin [Aspirin EC] 81 mg PO QHS 06/15/18 Calcium Carbonate/Vitamin D3 [Calcium 600 + Vit D Tablet] 1 tab PO ACSUPPER 10/21 Carvedilol [Coreg 3.125 mg Tablet] 3.125 mg PO Q12 06/15/18 Diazepam [Valium 5 mg Tablet] 2.5 mg PO DAILYP PRN 06/15/18 Furosemide [Lasix] 20 mg PO DAILY 06/15/18 Multivitamin [One-A-Day Essential] 1 each PO DAILY 06/15/18 Rosuvastatin Calcium [Crestor 5 mg Tablet] 5 mg PO QHS 06/15/18 Sertraline HCl [Zoloft] 25 mg PO QHS 06/15/18 Ubidecarenone [Co Q10] 200 mg PO DAILY 06/15/18 Warfarin Sodium 2.5 mg PO MOFR@0800 06/15/18 History of Present Illness History of Present Illness: ANGEL SMITH is a 83 year old female HEAVEN SMITH is a 83 year old female resented to the emergency department secondary to palpitations. Patient states she has a history of atrial fibrillation and aortic valve replacement and states last night as she was getting ready for bed her heart just did not feel right. Denies chest pain but felt a pressure-like sensation in her chest along with palpitation that was when she checked her blood pressure and noted systolically to be greater than 180. Denies chest pain, but did mild shortness of breath. States she was trying to get comfortable in bed lying flat made her feel worse at which point she decided to present to the emergency department for further workup and evaluation. 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 Hospital Course Hospital Course: Patient admitted with chest pain early on today. She has had negative cardiac enzymes and has ambulated with no evidence of any symptoms. There has been no arrhythmias on telemetry. She has been seen by Dr. Morrison and no change in plans at this time. It is felt that she can be discharged home for outpatient follow-up with her primary care physician and with Dr. Morrison. Physical Exam Vital Signs: Temp Pulse Resp BP Pulse Ox 98.0 F 69 16 148/41 H 97 06/15/18 10:55 06/15/18 10:55 06/15/18 10:55 06/15/18 10:55 06/15/18 10:55 Intake & Output 06/14/18 06/15/18 06/16/18 06:59 06:59 06:59 Intake Total 850 Output Total 500 Balance -500 850 Weight 52.3 kg General appearance: PRESENT: no acute distress, well-developed, well-nourished, other - Younger looking than stated age Head exam: PRESENT: atraumatic, normocephalic Eye exam: PRESENT: conjunctiva pink, EOMI, PERRLA. ABSENT: scleral icterus Ear exam: PRESENT: normal external ear exam Mouth exam: PRESENT: moist, tongue midline Neck exam: ABSENT: carotid bruit, JVD, lymphadenopathy, thyromegaly Respiratory exam: PRESENT: clear to auscultation jacob. ABSENT: rales, rhonchi, wheezes Cardiovascular exam: PRESENT: RRR, +S1, +S2, other - Metallic click. ABSENT: diastolic murmur, rubs, systolic murmur Pulses: PRESENT: normal dorsalis pedis pul Vascular exam: PRESENT: normal capillary refill GI/Abdominal exam: PRESENT: normal bowel sounds, soft. ABSENT: distended, guarding, mass, organolmegaly, rebound, tenderness Rectal exam: PRESENT: deferred Extremities exam: PRESENT: full ROM. ABSENT: calf tenderness, clubbing, pedal edema Neurological exam: PRESENT: alert, awake, oriented to person, oriented to place , oriented to time, oriented to situation, CN II-XII grossly intact. ABSENT: motor sensory deficit Psychiatric exam: PRESENT: appropriate affect, normal mood. ABSENT: homicidal ideation, suicidal ideation Skin exam: PRESENT: dry, intact, warm. ABSENT: cyanosis, rash Results Laboratory Results: 06/15/18 06/15/18 07:19 13:15 Troponin I 0.017 0.016 Qualifiers - * PATIENT BEING DISCHARGED WITH ANY OF THE FOLLOWING DIAGNOSIS: No Plan Time Spent: Less than 30 Minutes
--- NOTE | 2018-06-15 17:33 | EKG REPORT ---
SEVERITY:- ABNORMAL ECG - SINUS RHYTHM VENTRICULAR PREMATURE COMPLEX PROBABLE LVH WITH SECONDARY REPOL ABNRM PROBABLE INFERIOR INFARCT, OLD : Confirmed by: Elisa Layton MD 15-Jun-2018 17:32:28
== END 2018-06-15 16:29 | disposition home or self-care (01) ==
LOC: ER 00:21 → EH 01:58 → 3N 03:34
PROVIDERS: ADMIT Family Medicine; ATTEND Family Medicine
DX: R07.89 Other chest pain (principal); I25.10 Atherosclerotic heart disease of native coronary artery without angina pectoris; Z95.1 Presence of aortocoronary bypass graft; Z95.2 Presence of prosthetic heart valve; R00.2 Palpitations; R06.02 Shortness of breath; E78.5 Hyperlipidemia, unspecified; J44.9 Chronic obstructive pulmonary disease, unspecified; D64.9 Anemia, unspecified; I49.3 Ventricular premature depolarization; I10 Essential (primary) hypertension; I48.91 Unspecified atrial fibrillation; R06.01 Orthopnea; Z79.02 Long term (current) use of antithrombotics/antiplatelets; Z87.01 Personal history of pneumonia (recurrent); Z87.891 Personal history of nicotine dependence; Z82.49 Family history of ischemic heart disease and other diseases of the circulatory system
CPT/HCPCS: 93005; 99285; 36415; 82553; 82550; 85025; 85610; 80053; 84484; 71045; 93010; G0378 ×2; J3490

== ENCOUNTER 2019-12-12 14:38 | Emergency (ER) | payer MEDICARE, OTHER ==
--- NOTE | 2019-12-12 15:38 | ER Document Report ---
ED Medical Screen (RME) - General Chief Complaint: Hip Pain Stated Complaint: HIP PAIN Time Seen by Provider: 12/12/19 15:32 Primary Care Provider: ROSALBA PASCAL PA-C [Primary Care Provider] - Follow up as needed Mode of Arrival: Wheelchair Information source: Patient Notes: Patient states that she fell stepping up onto a curb 6 days ago. Patient states that she is uncertain what exactly caused her to fall but denies any head injury or loss of consciousness. Patient complains of right hip and right thigh pain. Patient states she does have a large bruise that does extend to the right lower leg as well. Patient has a history of hypertension, CHF and mechanical valve and takes Coumadin. Patient states she is unable to bear weight to the right lower extremity. I have greeted and performed a rapid initial assessment of this patient. A comprehensive ED assessment and evaluation of the patient, analysis of test results and completion of the medical decision making process will be conducted by additional ED providers. TRAVEL OUTSIDE OF THE [place] IN LAST 30 DAYS: No - Related Data Allergies/Adverse Reactions: lisinopril Allergy (Verified 12/12/19 15:32) spironolactone Allergy (Verified 12/12/19 15:32) Past Medical History - Past Medical History Cardiac Medical History: Reports: Hx Atrial Fibrillation, Hx Congestive Heart Failure, Hx Hypertension Denies: Hx Heart Attack Pulmonary Medical History: Reports: Hx Pneumonia - 02/2017 Denies: Hx Asthma, Hx COPD Renal/ Medical History: Denies: Hx Peritoneal Dialysis GI Medical History: Denies: Hx Hepatitis Psychiatric Medical History: Comment Only: Hx Depression - anxiety Infectious Medical History: Denies: Hx Hepatitis Past Surgical History: Reports: Hx Cardiac Surgery - aortic mechanical valve, Hx Open Heart Surgery - 2001, bypass x2 mechanical aortic valve, Hx Valve Replacement - Aortic valve replacement with mechanical valve - Immunizations Hx Diphtheria, Pertussis, Tetanus Vaccination: Yes Physical Exam - Vital signs Vitals: Temp Pulse Resp BP Pulse Ox 99.1 F 59 L 16 160/48 H 98 12/12/19 15:28 12/12/19 15:28 12/12/19 15:28 12/12/19 15:28 12/12/19 15:28 - General General appearance: Alert Notes: Right hip and thigh tenderness Course - Vital Signs Vital signs: Temp Pulse Resp BP Pulse Ox 99.1 F 59 L 16 160/48 H 98 12/12/19 15:28 12/12/19 15:28 12/12/19 15:28 12/12/19 15:28 12/12/19 15:28 Doctor's Discharge - Discharge Referrals: ROSALBA PASCAL PA-C [Primary Care Provider] - Follow up as needed
[2019-12-12 16:11] LABS: ABSOLUTE EOSINOPHILS # (AUTO) 0.2 10^3/uL (0.0-0.6); ABSOLUTE LYMPHOCYTES (AUTO) 1.3 10^3/uL (0.5-4.7); ABSOLUTE MONOCYTES (AUTO) 0.8 10^3/uL (0.1-1.4); ABSOLUTE NEUT (AUTO) 5.1 10^3/uL (1.7-8.2); BASOPHILS % (AUTO) 0.4 % (0-2); EOSINOPHILS % (AUTO) 3.1 % (0-6); HEMATOCRIT 35.4 % (36.0-47.0); HEMOGLOBIN 12.1 g/dL (12.0-15.5); LYMPHOCYTES % (AUTO) 17.4 % (13-45); MEAN CORPUSCULAR HGB CONC 34.2 g/dL (32.0-36.0); MEAN CORPUSCULAR VOLUME 93 fl (80-97); MONOCYTES % (AUTO) 10.5 % (3-13); PLATELET COUNT 170 10^3/uL (150-450); RED BLOOD COUNT 3.79 10^6/uL (3.72-5.28); RED CELL DISTRIBUTION WIDTH 13.1 % (11.5-14.0); SEGMENTED NEUTROPHILS % (AUTO) 68.6 % (42-78); TOTAL CELLS COUNTED % (AUTO) 100 %; WHITE BLOOD COUNT 7.5 10^3/uL (4.0-10.5)
--- NOTE | 2019-12-12 16:24 | RADIOLOGY REPORT (SQ) ---
EXAM DESCRIPTION: FEMUR RIGHT COMPLETED DATE/TIME: 12/12/2019 4:07 pm REASON FOR STUDY: fall, R hip/thigh pain COMPARISON: Pelvis x-ray 12/12/2019, 04/11/2015. NUMBER OF VIEWS: Two views. TECHNIQUE: Two radiographic images acquired of the right femur to include hip and knee in at least o ne projection. RADIATION DOSE: We will LIMITATIONS: None. FINDINGS: MINERALIZATION: Normal. BONES: No acute fracture or dislocation. There is chondrocalcinosis at the right knee. SOFT TISSUES: No obvious swelling. Vascular calcifications are noted. Surgical clips at the soft ti ssues of the visualized right lower leg. IMPRESSION: No radiographic evidence for acute osseous abnormality at the right femur. Chondrocalci nosis at the right knee. TECHNICAL DOCUMENTATION: JOB ID: [id number] 2010 [employer]- All Rights Reserved Reading location - IP/workstation name: [email or web address]
--- NOTE | 2019-12-12 16:26 | RADIOLOGY REPORT (SQ) ---
EXAM DESCRIPTION: PELVIS AP COMPLETED DATE/TIME: 12/12/2019 4:07 pm REASON FOR STUDY: fall, R hip/thigh pain COMPARISON: Pelvis x-ray 04/11/2015. Right femur x-ray 12/12/2019. NUMBER OF VIEWS: One view TECHNIQUE: AP Pelvis LIMITATIONS: None. FINDINGS: No acute fracture or dislocation. The pelvic ring is intact. The bilateral hip joints ar e maintained. Degenerative changes at the visualized lower lumbar spine. Moderate amount of stool a t the colon. The soft tissues are unremarkable. IMPRESSION: No radiographic evidence for acute osseus abnormality at the pelvis. COMMENT: Pelvic fractures are often occult on plain radiographs. If strong clinical suspicion for f racture, recommend CT or MR. TECHNICAL DOCUMENTATION: JOB ID: [id number] [id number] 2010 [employer]- All Rights Reserved Reading location - IP/workstation name: [email or web address]
--- NOTE | 2019-12-12 16:27 | ER Document Report ---
ED Fall - General Chief Complaint: Fall Stated Complaint: HIP PAIN Time Seen by Provider: 12/12/19 15:32 Mode of Arrival: Wheelchair Information source: Patient Notes: Patient is a 84-year-old female with a history of hypertension, congestive heart failure, mechanical valve and atrial fibrillation on Coumadin who presents to the emergency department with a chief complaint of fall. Patient reports 6 days ago she was stepping up on a curb when she lost her balance. Patient reports she was stepping up on the curb she was bent over and fell onto her right hip. Patient reports she assisted herself up and walked into [place]. Patient reports initially she was able to walk the first and second day after the incident but has since continued to have more pain and pressure when attempting to bear weight. Patient denies head injury or loss of consciousness. Patient reports bruising to the right lateral hip and upper leg. Patient also reports right knee pain. Patient denies any other injury during the fall. Patient denies chest pain or dizziness before fall. TRAVEL OUTSIDE OF THE [place] IN LAST 30 DAYS: No - Related data Allergies/Adverse Reactions: lisinopril Allergy (Verified 12/12/19 15:32) spironolactone Allergy (Verified 12/12/19 15:32) Home Medications: carvedilol,, lasiz, coumadin, rosuvasxstatin, sertraline, asa, amlodipine, famotidine, coq10, mv, calc+d3. Past Medical History - General Information source: Patient - Social History Smoking Status: Former Smoker Chew tobacco use (# tins/day): No Frequency of alcohol use: None Drug Abuse: None Lives with: Family Family History: Reviewed & Not Pertinent, Hypertension Patient has suicidal ideation: No Patient has homicidal ideation: No - Past Medical History Cardiac Medical History: Reports: Hx Atrial Fibrillation, Hx Congestive Heart Failure, Hx Hypertension Denies: Hx Heart Attack Pulmonary Medical History: Reports: Hx Pneumonia - 02/2017 Denies: Hx Asthma, Hx COPD EENT Medical History: Reports: None Neurological Medical History: Reports: None Endocrine Medical History: Reports: None Renal/ Medical History: Reports: None. Denies: Hx Peritoneal Dialysis Malignancy Medical History: Reports: None GI Medical History: Reports: None. Denies: Hx Hepatitis Musculoskeletal Medical History: Reports None Skin Medical History: Reports None Psychiatric Medical History: Reports: None Comment Only: Hx Depression - anxiety Traumatic Medical History: Reports: None Infectious Medical History: Reports: None. Denies: Hx Hepatitis Past Surgical History: Reports: Hx Cardiac Surgery - aortic mechanical valve, Hx Open Heart Surgery - 2002, bypass x2 mechanical aortic valve, Hx Valve Replacement - Aortic valve replacement with mechanical valve - Immunizations Hx Diphtheria, Pertussis, Tetanus Vaccination: Yes Review of Systems - Review of Systems Constitutional: No symptoms reported EENT: No symptoms reported Cardiovascular: No symptoms reported Respiratory: No symptoms reported Gastrointestinal: No symptoms reported Genitourinary: No symptoms reported Female Genitourinary: No symptoms reported Musculoskeletal: See HPI Skin: See HPI Hematologic/Lymphatic: No symptoms reported Neurological/Psychological: No symptoms reported Physical Exam - Vital signs Vitals: Temp Pulse Resp BP Pulse Ox 99.1 F 59 L 16 160/48 H 98 12/12/19 15:28 12/12/19 15:28 12/12/19 15:28 12/12/19 15:28 12/12/19 15:28 Interpretation: Hypertensive - Notes Notes: GENERAL: Well-appearing, well-nourished and in no acute distress. HEAD: Atraumatic, normocephalic. EYES: Pupils equal round and reactive to light, extraocular movements intact, sclera anicteric, conjunctiva are normal. ENT: TMs normal, nares patent, oropharynx clear without exudates. Moist mucous membranes. NECK: Normal range of motion, supple without lymphadenopathy or JVD. LUNGS: Breath sounds clear to auscultation bilaterally and equal. No wheezes rales or rhonchi. HEART: Regular rate and rhythm without murmurs, rubs or gallops. ABDOMEN: Soft, nontender, normoactive bowel sounds. No guarding, no rebound. No masses appreciated. BACK: No cervical, thoracic, lumbar midline tenderness. No saddle anesthesia, normal distal neurovascular exam. GENITOURINARY: Deferred. EXTREMITIES: Patient has point tenderness to the right lateral upper thigh and right hip. No crepitus palpated. There is ecchymosis noted in various stages of healing. There is a small abrasion to the right upper lateral thigh. Pat ient has a small bruise to the right lateral upper tib-fib area. No obvious deformity. NEUROLOGICAL: Cranial nerves II through XII grossly intact. Normal speech. PSYCH: Normal mood, normal affect. SKIN: Warm, Dry, normal turgor, no rashes or lesions noted. Course - Re-evaluation Re-evalutation: 12/12/19 16:27 We will check coagulation as the patient is on Coumadin. CBC was unremarkable without significant anemia. We will add on additional x-rays to include right knee and right tib-fib. 12/12/19 17:45 Patient's x-rays were unremarkable without any acute sign of fracture. At this time I do not believe a CT of the pelvis is necessary as the patient was able to initially walk the first 2 days after the fall and then reports becoming more stiff. Patient reports she has been able to ambulate but with the use of a walker. I did inform the patient as well as her son that over the next 2 weeks if the pain becomes more severe that further imaging may be necessary. I did inform the patient to take Tylenol as needed for her pain, Continue to move to help prevent stiffness and to follow-up with her primary care physician. Patient's INR was therapeutic she does have a mechanical valve. 12/12/19 17:57 Did visualize the patient ambulating around the department with a walker. Patient is able to place partial to almost full weight on the right leg. Patient reports that time she is able to place full weight but states that when she initially gets up after sitting for long period of time she is very stiff and unable to bear weight initially. Patient reports when she starts to get up and walk around she does better. Patient is nontoxic-appearing and stable for discharge. - Vital Signs Vital signs: Temp Pulse Resp BP Pulse Ox 99.1 F 59 L 16 160/48 H 98 12/12/19 15:28 12/12/19 15:28 12/12/19 15:28 12/12/19 15:28 12/12/19 15:28 - Laboratory Result Diagrams: 12/12/19 15:43 Laboratory results interpreted by me: 12/12/19 12/12/19 15:43 15:43 Hct 35.4 L PT 31.3 H 12/12/19 17:58 Patient does not meet white count or anemia. Patient's platelet count 170. Pat ient's INR is 2.94 which is therapeutic. Laboratory 12/12/19 12/12/19 15:43 15:43 WBC 7.5 RBC 3.79 Hgb 12.1 Hct 35.4 L MCV 93 MCH 32.0 MCHC 34.2 RDW 13.1 Plt Count 170 Lymph % (Auto) 17.4 [place] % (Auto) 10.5 Eos % (Auto) 3.1 Baso % (Auto) 0.4 Absolute Neuts (auto) 5.1 Absolute Lymphs (auto) 1.3 Absolute Monos (auto) 0.8 Absolute Eos (auto) 0.2 Absolute Basos (auto) 0.0 Seg Neutrophils % 68.6 PT 31.3 H INR 2.94 12/12/19 17:58 - Diagnostic Test Radiology reviewed: Reports reviewed Radiology results interpreted by me: 12/12/19 17:12 Femur X-Ray 12/12/19 15:35 IMPRESSION: No radiographic evidence for acute osseous abnormality at the right femur. Chondrocalcinosis at the right knee. Pelvis X-Ray 12/12/19 15:35 IMPRESSION: No radiographic evidence for acute osseus abnormality at the pelvis. Knee X-Ray 12/12/19 16:17 IMPRESSION: No acute fracture or dislocation of the right knee. Chondrocalcinosis which can be seen with CPPD or gout. Tibia/Fibula X-Ray 12/12/19 16:17 IMPRESSION: No acute fracture or dislocation of the right lower leg. Discharge - Discharge Clinical Impression: Right hip pain, Right leg pain Fall Qualifiers: Encounter type: initial encounter Qualified Code(s): W19.XXXA - Unspecified fall, initial encounter Condition: Stable Disposition: HOME, SELF-CARE Additional Instructions: *Today was in the emergency department for fall. The fall did occur 6 days ago. We did check your Coumadin levels, your INR was 2.9, this is therapeutic since you do take this for mechanical valve. Please follow-up with your nursing attendant as scheduled on Saturday to have your scheduled Coumadin levels redrawn. We did obtain an x-ray of your right hip, pelvis, right knee and right lower leg. There was no obvious sign of fracture at this time. Please continue to use your walker to get around. Do expect to feel sore for the next 10 to 14 days. Take Tylenol for your discomfort. Please make sure that you remain active. If your pain becomes worse or does not improve or you cannot use the walker due to the pain please return to the emergency department as you may require further imaging such as a CAT scan.
[2019-12-12 16:32] LABS: INTERNATIONAL RATION (INR) 2.94; PROTHROMBIN TIME 31.3 SEC (11.4-15.4)
--- NOTE | 2019-12-12 17:04 | RADIOLOGY REPORT (SQ) ---
EXAM DESCRIPTION: TIBIA FIBULA RIGHT COMPLETED DATE/TIME: 12/12/2019 3:45 pm REASON FOR STUDY: right leg injury, bruising COMPARISON: None. NUMBER OF VIEWS: Two views. TECHNIQUE: Two radiographic images acquired of the right tibia and fibula to include the knee and an kle in at least one projection. LIMITATIONS: None. FINDINGS: MINERALIZATION: Normal. BONES: No acute fracture or dislocation. No worrisome bone lesions. SOFT TISSUES: Surgical clips in the posterior soft tissues consistent with previous graft harvest. OTHER: No other significant finding. IMPRESSION: No acute fracture or dislocation of the right lower leg. TECHNICAL DOCUMENTATION: JOB ID: [id number] [employer]- All Rights Reserved Reading location - IP/workstation name: [email or web address]
--- NOTE | 2019-12-12 17:05 | RADIOLOGY REPORT (SQ) ---
EXAM DESCRIPTION: KNEE RIGHT 4 VIEWS COMPLETED DATE/TIME: 12/12/2019 3:45 pm REASON FOR STUDY: right leg injury, bruising COMPARISON: None. NUMBER OF VIEWS: Four views. TECHNIQUE: AP, lateral, and both oblique radiographic images acquired of the right knee. LIMITATIONS: None. FINDINGS: MINERALIZATION: Normal. BONES: No acute fracture or dislocation. No worrisome bone lesions. JOINT: No joint effusion. Fluffy intra-articular calcifications consistent with chondrocalcinosis. No intra-articular loose body. SOFT TISSUES: No soft tissue swelling. No radio-opaque foreign body. OTHER: No other significant finding. IMPRESSION: No acute fracture or dislocation of the right knee. Chondrocalcinosis which can be seen with CPPD or gout. TECHNICAL DOCUMENTATION: JOB ID: [id number] [employer]- All Rights Reserved Reading location - IP/workstation name: [email or web address]
[2019-12-12 18:22] VITALS: BP 185/46
== END 2019-12-12 18:03 | disposition home or self-care (01) ==
LOC: ER 14:38
DX: M25.551 Pain in right hip (principal); M79.604 Pain in right leg; M25.561 Pain in right knee; W19.XXXA Unspecified fall, initial encounter; I11.0 Hypertensive heart disease with heart failure; Z79.899 Other long term (current) drug therapy; Z88.8 Allergy status to other drugs, medicaments and biological substances; Z87.891 Personal history of nicotine dependence
CPT/HCPCS: 36415; 72170; 85025; 85610; 99283

== ENCOUNTER 2019-12-28 14:37 | Emergency (ER) | payer MEDICARE, OTHER ==
[2019-12-28 15:05] VITALS: BP 170/45
--- NOTE | 2019-12-28 15:15 | ER Document Report ---
ED Medical Screen (RME) - General Chief Complaint: Fall Injury Stated Complaint: FALL/HIP PAIN Time Seen by Provider: 12/28/19 15:11 Primary Care Provider: ROSALBA PASCAL PA-C [Primary Care Provider] - Follow up as needed Mode of Arrival: Wheelchair Information source: Patient Notes: 84-year-old female presents to ED for complaint of pain to her right hip. She states that 3 weeks ago while at [employer]. She states that a week after she fell she came to the emergency room and they said there was no fracture but there was a bad bruise and to return to the ED if she continued having pain. She states it is now 3 weeks after the injury and she is continuing to have pain so she came back to the emergency room she stated that they told her they would do a CAT scan if she continued to have pain. Will order an x-ray at this time have her seen by another provider so they can determine if they need to get an CT at that time. I have greeted and performed a rapid initial assessment of this patient. A comprehensive ED assessment and evaluation of the patient, analysis of test results and completion of medical decision making process will be conducted by an additional ED providers. TRAVEL OUTSIDE OF THE [place] IN LAST 30 DAYS: No - Related Data Allergies/Adverse Reactions: lisinopril Allergy (Verified 12/12/19 15:32) spironolactone Allergy (Verified 12/12/19 15:32) Past Medical History - Past Medical History Cardiac Medical History: Reports: Hx Atrial Fibrillation, Hx Congestive Heart Failure, Hx Hypertension Denies: Hx Heart Attack Pulmonary Medical History: Reports: Hx Pneumonia - 02/2017 Denies: Hx Asthma, Hx COPD Renal/ Medical History: Denies: Hx Peritoneal Dialysis GI Medical History: Denies: Hx Hepatitis Psychiatric Medical History: Comment Only: Hx Depression - anxiety Infectious Medical History: Denies: Hx Hepatitis Past Surgical History: Reports: Hx Cardiac Surgery - aortic mechanical valve, Hx Open Heart Surgery - 2001, bypass x2 mechanical aortic valve, Hx Valve Replacement - Aortic valve replacement with mechanical valve - Immunizations Hx Diphtheria, Pertussis, Tetanus Vaccination: Yes Physical Exam - Vital signs Vitals: Temp Pulse Resp BP Pulse Ox 98 F 62 19 170/45 H 98 12/28/19 15:04 12/28/19 15:04 12/28/19 15:04 12/28/19 15:04 12/28/19 15:04 Course - Vital Signs Vital signs: Temp Pulse Resp BP Pulse Ox 98 F 62 19 170/45 H 98 12/28/19 15:04 12/28/19 15:04 12/28/19 15:04 12/28/19 15:04 12/28/19 15:04 Doctor's Discharge - Discharge Referrals: ROSALBA PASCAL PA-C [Primary Care Provider] - Follow up as needed
--- NOTE | 2019-12-28 16:06 | RADIOLOGY REPORT (SQ) ---
EXAM DESCRIPTION: HIP RIGHT AP/LATERAL COMPLETED DATE/TIME: 12/28/2019 3:51 pm REASON FOR STUDY: Fall 3 weeks ago continued pain COMPARISON: AP view of the pelvis and lateral frogleg view of the right hip from 07/01/2010. NUMBER OF VIEWS: Two views. TECHNIQUE: An AP view of the pelvis and a lateral frogleg view of the right hip were obtained. LIMITATIONS: None. FINDINGS: MINERALIZATION: Osteopenia. RIGHT HIP: No fracture or dislocation. Mild osteoarthrosis of the femoroacetabular joint. LEFT HIP: No fracture or dislocation. PUBIS AND ISCHIUM: The ilioischial and iliopectineal lines are intact. There is no diastasis of the pubic symphysis. PELVIS: No fracture. SACRUM: The sacrum is obscured by overlying bowel. LOWER LUMBAR SPINE: Degenerative spondylosis of the lumbar spine. SOFT TISSUES: No findings. OTHER: No other finding. IMPRESSION: No acute osseous abnormality of the right hip. TECHNICAL DOCUMENTATION: JOB ID: [id number] 2010 [employer]- All Rights Reserved Reading location - IP/workstation name: [email or web address]
--- NOTE | 2019-12-28 19:20 | RADIOLOGY REPORT (SQ) ---
EXAM DESCRIPTION: CT RT LOWER EXTREMITY WITHOUT COMPLETED DATE/TIME: 12/28/2019 7:09 pm REASON FOR STUDY: Fall right hip pain COMPARISON: None. EXAM PARAMETERS: TECHNIQUE:Axial imaging performed through the pelvis and hips with reformatted juana nal and sagittal imaging windowed for bone and soft tissues. Images saved to PACS. 3D IMAGING: Were 3D images as MIP, SSD, or volume rendering performed at the work station? No All CT scanners at this facility use dose modulation, iterative reconstruction, and/or weight based d osing when appropriate to reduce radiation dose to as low as reasonably achievable (ALARA). [facility]: Dose Right [facility]: [facility] [facility]: Dose Right [facility]: Ter[employer] 4D [facility]: [facility] RADIATION DOSE: CT Rad equipment meets quality standard of care and radiation dose reduction techniqu es were employed. CTDIvol: 13.2 mGy. DLP: 446 mGy-cm. mGy. LIMITATIONS: None. FINDINGS: SOFT TISSUES: No obvious swelling or foreign body. BONES: There is a fracture of the proximal superior pubic ramus on the right and at there is a fractu re of the mid inferior pubic ramus on the right. There is no femoral fracture. MINERALIZATION: Normal. OTHER: No other significant finding. IMPRESSION: Pubic ramus fractures on the right. No hip fracture. TECHNICAL DOCUMENTATION: JOB ID: [id number] [facility] [id number]: Final reports with documentation of one or more dose reduction techniques (e.g., Automate d exposure control, adjustment of the mA and/or kV according to patient size, use of iterative recons truction technique) 2010 [employer]- All Rights Reserved Reading location - IP/workstation name: [email or web address]
--- NOTE | 2019-12-28 19:50 | ER Document Report ---
ED Fall - General Chief Complaint: Fall Injury Stated Complaint: FALL/HIP PAIN Time Seen by Provider: 12/28/19 15:11 Primary Care Provider: [facility] [Provider Group] - Follow up as needed ROSALBA PASCAL PA-C [NO LOCAL MD] - Follow up as needed Mode of Arrival: Wheelchair Information source: Patient Notes: 84-year-old female presented to ED with for complaint of pain in her right hip/pelvic area since she fell 3 weeks ago while at [employer]. She states that she came in and got x-ray after she had fallen because it continued to hurt. They said at that time that there was no fracture but she would need to return if he continued to hurt. She did come back today I did x-ray and it was still negative so I did a CAT scan which shows a fracture to the mild inferior pubic ramus fracture on the right and a proximal superior pubic ramus fracture on the right. TRAVEL OUTSIDE OF THE [place] IN LAST 30 DAYS: No - HPI Occurred: Other - 3 weeks Where: Outdoors, Public place Context: Tripped Associated symptoms: None Location of injury/pain: Hip, Pelvic Quality of pain: Sharp Severity: Moderate Pain Level: 2 - Related data Allergies/Adverse Reactions: lisinopril Allergy (Verified 12/28/19 20:08) spironolactone Allergy (Verified 12/28/19 20:08) Past Medical History - General Information source: Patient - Social History Smoking Status: Never Smoker Frequency of alcohol use: None Drug Abuse: None Lives with: Family Family History: Reviewed & Not Pertinent, Hypertension Patient has suicidal ideation: No Patient has homicidal ideation: No - Past Medical History Cardiac Medical History: Reports: Hx Atrial Fibrillation, Hx Congestive Heart Failure, Hx Hypertension, Hx Heart Murmur Pulmonary Medical History: Reports: Hx Pneumonia - 02/2017 EENT Medical History: Reports: None Neurological Medical History: Reports: None Endocrine Medical History: Reports: None Renal/ Medical History: Reports: None GI Medical History: Reports: None Musculoskeletal Medical History: Reports None Psychiatric Medical History: Comment Only: Hx Depression - anxiety Traumatic Medical History: Reports: Hx Fractures - Pubic ramus fracture Infectious Medical History: Reports: None Past Surgical History: Reports: Hx Cardiac Surgery - aortic mechanical valve, Hx Open Heart Surgery - 2001, bypass x2 mechanical aortic valve, Hx Valve Replacement - Aortic valve replacement with mechanical valve - Immunizations Hx Diphtheria, Pertussis, Tetanus Vaccination: Yes Review of Systems - Review of Systems Constitutional: No symptoms reported EENT: No symptoms reported Cardiovascular: No symptoms reported Respiratory: No symptoms reported Gastrointestinal: No symptoms reported Genitourinary: No symptoms reported Female Genitourinary: No symptoms reported Musculoskeletal: Other - Pelvic pain pelvic bone Skin: No symptoms reported Hematologic/Lymphatic: No symptoms reported Neurological/Psychological: No symptoms reported -: Yes All other systems reviewed and negative Physical Exam - Vital signs Vitals: Temp Pulse Resp BP Pulse Ox 98 F 62 19 170/45 H 98 12/28/19 15:04 12/28/19 15:04 12/28/19 15:04 12/28/19 15:04 12/28/19 15:04 Interpretation: Normal - General General appearance: Appears well, Alert - HEENT Head: Normocephalic, Atraumatic Eyes: Normal Pupils: PERRL - Respiratory Respiratory status: No respiratory distress Chest status: Nontender Breath sounds: Normal Chest palpation: Normal - Cardiovascular Rhythm: Regular Heart sounds: Normal auscultation Murmur: No - Abdominal Inspection: Normal Distension: No distension Bowel sounds: Normal Tenderness: Nontender Organomegaly: No organomegaly - Back Back: Normal, Nontender - Extremities General upper extremity: Normal inspection, Nontender, Normal color, Normal ROM, Normal temperature General lower extremity: Normal inspection, Nontender, Normal color, Normal ROM, Normal temperature, Normal weight bearing. No: Ramona's sign Hip: Tender - Tenderness to the pubic bone, Ecchymosis - Right hip, Pain with ROM. No: Abrasion, Deformity, Dislocation, Instability, Laceration, Unable to bear weight Thigh: Normal Knee: Normal - Neurological Neuro grossly intact: Yes Cognition: Normal Orientation: AAOx4 Fedora Coma Scale Eye Opening: Spontaneous Kaylene Coma Scale Verbal: Oriented Kaylene Coma Scale Motor: Obeys Commands Fedora Coma Scale Total: 15 Speech: Normal Motor strength normal: LUE, RUE, LLE, RLE Sensory: Normal - Psychological Associated symptoms: Normal affect, Normal mood - Skin Skin Temperature: Warm Skin Moisture: Dry Skin Color: Normal Course - Re-evaluation Re-evalutation: 12/28/19 21:34 Discussed x-ray and CT with patient and written report of CT and x-ray given to patient to follow-up with primary care and or orthopedics. Patient verbalized understanding and agreement with treatment plan patient was discharged home. - Vital Signs Vital signs: Temp Pulse Resp BP Pulse Ox 98 F 62 19 170/45 H 98 12/28/19 15:04 12/28/19 15:04 12/28/19 15:04 12/28/19 15:04 12/28/19 15:04 - Diagnostic Test Radiology reviewed: Image reviewed, Reports reviewed Discharge - Discharge Clinical Impression: Pubic ramus fracture Qualifiers: Encounter type: initial encounter Fracture type: closed Laterality: right Qualified Code(s): S32.591A - Other specified fracture of right pubis, initial encounter for closed fracture Condition: Stable Disposition: HOME, SELF-CARE Additional Instructions: You have a fracture to the proximal superior pubic ramus on the right and mild inferior pubic ramus on the right. I have shown a picture of these fractures. There is no therapy for these except for pain medicine such as Tylenol or Motrin. You state you are on Coumadin so you will need to take Tylenol. I have offered use of narcotics you stated you did not like them at this time. Acetaminophen Acetaminophen may be taken for pain relief or fever control. It's much safer than aspirin, offering a wider range of "safe" dosages. It is safe during . Some brand names are Tylenol, Panadol, Datril, Anacin 3, Tempra, and Liquiprin. Acetaminophen can be repeated every four hours. The following are maximum recommended dosages: WEIGHT Dose Drops Elixir Chewable(80mg) (LBS.) drprs=droppers tsp=teaspoon 6 40 mg .4 ml (1/2) 6-11 80 mg .8 ml (full) 1/2 tsp 1 tab 12-16 120 mg 1 1/2 drprs 3/4 tsp 1 1/2 tabs 17-23 160 mg 2 drprs 1 tsp 2 tabs 24-30 240 mg 3 drprs 1 1/2 tsp 3 tabs 30-35 320 mg 2 tsp 4 tabs 36-41 360 mg 2 1/4 tsp 4 1/2 tabs 42-47 400 mg 2 1/2 tsp 5 tabs 48-53 480 mg 3 tsp 6 tabs 54-59 520 mg 3 1/4 tsp 6 1/2 tabs 60-64 560 mg 3 1/2 tsp 7 tabs 65-70 600 mg 3 3/4 tsp 7 1/2 tabs 71-76 640 mg 4 tsp 8 tabs 77-82 720 mg 4 1/2 tsp 9 tabs 83-88 800 mg 5 tsp 10 tabs >89 pounds or adults 650 mg to 900 mg Acetaminophen can be repeated every four hours. Maximum daily dose not to exceed 4000 mg. These maximum recommended dosages are slightly higher than the dosages written on the product container, but these dosages are very safe and well below the toxic dosage for acetaminophen. Ice Packs Apply ice packs frequently against the painful area. Many different schedules are recommended, such as "20 minutes on, 20 minutes off" or "one hour ice, two hours rest." If you need to work, you may need to go longer between ice treatments. You should plan to have the area ice packed AT LEAST one fourth of the time. The ice should be applied over the wrap, tape, or splint, or over a layer of cloth -- not directly against the skin. Some ice bags have a built-in cloth and can be put directly on the skin. FOLLOW-UP CARE: If you have been referred to a physician for follow-up care, call the physicians office for an appointment as you were instructed or within the next two days. If you experience worsening or a significant change in your symptoms, notify the physician immediately or return to the Emergency Department at any time for re-evaluation. Forms: Elevated Blood Pressure Referrals: ROSALBA PASCAL PA-C [NO LOCAL MD] - Follow up as needed [facility] ([facility] [Provider Group] - Follow up as needed
== END 2019-12-28 20:18 | disposition home or self-care (01) ==
LOC: ER 14:37
DX: S32.591A Other specified fracture of right pubis, initial encounter for closed fracture (principal); W01.0XXA Fall on same level from slipping, tripping and stumbling without subsequent striking against object, initial encounter; Y92.512 Supermarket, store or market as the place of occurrence of the external cause; I48.91 Unspecified atrial fibrillation; I50.9 Heart failure, unspecified; I11.0 Hypertensive heart disease with heart failure; Z95.2 Presence of prosthetic heart valve; Z79.02 Long term (current) use of antithrombotics/antiplatelets
CPT/HCPCS: 99284

== ENCOUNTER 2020-07-28 20:28 | Emergency (ER) | payer MEDICARE, OTHER ==
[2020-07-28] MEDS ORDERED: MORPHINE SULFATE 10 MG/ML INJ IV ONE (20:35)
--- NOTE | 2020-07-28 20:37 | ER Document Report ---
ED Medical Screen (RME) - General Chief Complaint: Arm Injury Stated Complaint: FALL/ARM INJURY Time Seen by Provider: 07/28/20 20:31 Primary Care Provider: MONCHO FAM NP [Primary Care Provider] - Follow up as needed Notes: Patient is an 85-year-old female, on Coumadin who presents emergency department with a chief complaint of left arm pain. Patient states that she fell on her arm. She does not know if she hit her head. Patient has history of breaking the same wrist in the past. Exam: Deformity noted to left wrist. I have greeted and performed a rapid initial assessment of this patient. A comprehensive ED assessment and evaluation of the patient, analysis of test results and completion of medical decision making process will be conducted by an additional ED providers. TRAVEL OUTSIDE OF THE [place] IN LAST 30 DAYS: No - Related Data Allergies/Adverse Reactions: lisinopril Allergy (Verified 12/28/19 20:08) spironolactone Allergy (Verified 12/28/19 20:08) Past Medical History - Past Medical History Cardiac Medical History: Reports: Hx Atrial Fibrillation, Hx Congestive Heart Failure, Hx Hypertension, Hx Heart Murmur Denies: Hx Heart Attack Pulmonary Medical History: Reports: Hx Pneumonia - 02/2017 Denies: Hx Asthma, Hx COPD Renal/ Medical History: Denies: Hx Peritoneal Dialysis GI Medical History: Denies: Hx Hepatitis Psychiatric Medical History: Comment Only: Hx Depression - anxiety Traumatic Medical History: Reports: Hx Fractures - Pubic ramus fracture Infectious Medical History: Denies: Hx Hepatitis Past Surgical History: Reports: Hx Cardiac Surgery - aortic mechanical valve, Hx Open Heart Surgery - 2001, bypass x2 mechanical aortic valve, Hx Valve Replacement - Aortic valve replacement with mechanical valve - Immunizations Hx Diphtheria, Pertussis, Tetanus Vaccination: Yes Doctor's Discharge - Discharge Referrals: MONCHO FAM NP [Primary Care Provider] - Follow up as needed
--- NOTE | 2020-07-28 21:11 | RADIOLOGY REPORT (SQ) ---
EXAM DESCRIPTION: XR WRIST 3 OR MORE VIEWS COMPLETED DATE/TME: 07/28/2020 20:31 CLINICAL HISTORY: 85 years, Female, fall; deformity COMPARISON: None. TECHNIQUE: Three views of the left wrist. FINDINGS: Significant transverse fracture of the distal radius with mild impaction in the relative mild angulation. No definite involvement of the articular surface of the distal radius. There is a suspected displaced fracture of the ulnar styloid. Suspected mild chronic degenerative changes between the scaphoid bone in trapezium. IMPRESSION: Significant distal radial fracture. Minimally displaced ulnar styloid fracture. Underlying osteoporosis.
--- NOTE | 2020-07-28 21:19 | RADIOLOGY REPORT (SQ) ---
EXAM DESCRIPTION: CT HEAD WITHOUT IV CONTRAST COMPLETED DATE/TME: 07/28/2020 20:31 CLINICAL HISTORY: 85 years, Female, fall; on coumadin COMPARISON: None. TECHNIQUE: Axial images without IV contrast. Sagittal coronal reconstruction. Images stored on PACS. All CT scanners at this facility use dose modulation, iterative reconstruction, and/or weight based dosing when appropriate to reduce radiation dose to as low as reasonably achievable (ALARA). FINDINGS: Moderate central and cortical atrophy. No acute intra-axial or extra-axial melted. Atherosclerotic disease. Paranasal sinuses, mastoid air cells and bony calvarium without acute findings. There is significant symmetrical thinning of both parietal bones. 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 IMPRESSION: 1. Age-related atrophy without acute intracranial abnormalities. 2. 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
--- NOTE | 2020-07-28 21:25 | RADIOLOGY REPORT (SQ) ---
EXAM DESCRIPTION: CT CERVICAL SPINE WITHOUT IV CONTRAST COMPLETED DATE/TME: 07/28/2020 20:31 CLINICAL HISTORY: 85 years, Female, fall COMPARISON: None. TECHNIQUE: Axial images without IV contrast. Sagittal coronal reconstruction. Images stored on PACS. All CT scanners at this facility use dose modulation, iterative reconstruction, and/or weight based dosing when appropriate to reduce radiation dose to as low as reasonably achievable (ALARA). FINDINGS: Reversal of the normal lordosis with mild kyphosis centered at C4. There is mild anterolisthesis at C3-4 and mild retrolisthesis at C4-5 and C5-6. This is more likely chronic and degenerative. No obvious acute fracture. No suspicious prevertebral soft tissue swelling. [id number] central stenosis at C4-5 and C5-6. Mild foraminal stenosis at C4-5 bilaterally. Suspected mild enlargement of the thyroid gland which demonstrates relative low density/low iodine content. Advanced atherosclerotic disease at the origin of both internal carotid arteries. Limited images of the upper lungs demonstrate question minimal edema. IMPRESSION: 1. Cervical spine with mild kyphosis and subluxations probably chronic. No definite acute cervical spine abnormality. 2. Atherosclerotic changes of both proximal internal carotid arteries. 3. Mildly enlarged and nodular thyroid gland. No obvious dominant nodule. 4. Suspected subtle changes of edema in the upper lung hook.
[2020-07-28] MEDS ORDERED: HYDROCODONE/ACETAMINOPHEN 5-325 MG TABLET PO ONE (21:36)
[2020-07-29] MEDS ORDERED: ONDANSETRON 4 MG TAB.RAPDIS PO ONE (02:15)
[2020-07-29] MEDS ORDERED: OXYCODONE HCL IR 5 MG TABLET PO ONE (02:15)
--- NOTE | 2020-07-29 02:33 | ER Document Report ---
ED Extremity Problem, Upper - General Chief Complaint: Wrist Pain Stated Complaint: FALL/ARM INJURY Time Seen by Provider: 07/28/20 20:31 Primary Care Provider: LISA MEAD JR, DO [ACTIVE PROVISIONAL STAFF] - Follow up tomorrow Notes: Patient is an 85-year-old female that comes emergency department for chief complaint of a left wrist injury. She states that she is somewhat unsteady on her feet at baseline, she states she lost her balance, fell, tried to catch herself, and landed with her hand curled in on her left wrist. She denies hitting her head, she states she did not answer this clearly earlier but she is certain she did not hit her head. She denies neck pain, back pain, chest pain, hip pain, or any other complaints. She is on Coumadin. She states that she has had some swelling of the left wrist but she denies any other complaints. She is here with her son who came and helped her up after she had been on the floor for 15 minutes reportedly. No open wounds. TRAVEL OUTSIDE OF THE [place] IN LAST 30 DAYS: No - Related Data Allergies/Adverse Reactions: lisinopril Allergy (Verified 12/28/19 20:08) spironolactone Allergy (Verified 12/28/19 20:08) Home Medications: coumadin, rosuvastatin, setraline, coreg, lasix, asa Past Medical History - General Information source: Patient - Social History Smoking Status: Never Smoker Frequency of alcohol use: None Drug Abuse: None Lives with: Family Family History: Reviewed & Not Pertinent, Hypertension - Past Medical History Cardiac Medical History: Reports: Hx Atrial Fibrillation, Hx Congestive Heart Failure, Hx Hypertension, Hx Heart Murmur Denies: Hx Heart Attack Pulmonary Medical History: Reports: Hx Pneumonia - 02/2017 Denies: Hx Asthma, Hx COPD Renal/ Medical History: Denies: Hx Peritoneal Dialysis GI Medical History: Denies: Hx Hepatitis Psychiatric Medical History: Comment Only: Hx Depression - anxiety Traumatic Medical History: Reports: Hx Fractures - Pubic ramus fracture Infectious Medical History: Denies: Hx Hepatitis Past Surgical History: Reports: Hx Cardiac Surgery - aortic mechanical valve, Hx Open Heart Surgery - 2002, bypass x2 mechanical aortic valve, Hx Valve Replacement - Aortic valve replacement with mechanical valve - Immunizations Hx Diphtheria, Pertussis, Tetanus Vaccination: Yes Review of Systems - Review of Systems Constitutional: No symptoms reported EENT: No symptoms reported Cardiovascular: No symptoms reported Respiratory: No symptoms reported Gastrointestinal: No symptoms reported Genitourinary: No symptoms reported Female Genitourinary: No symptoms reported Musculoskeletal: See HPI Skin: No symptoms reported Hematologic/Lymphatic: No symptoms reported Neurological/Psychological: No symptoms reported Physical Exam - Vital signs Vitals: Temp Pulse Resp BP Pulse Ox 98.6 F 70 20 165/75 H 96 07/28/20 21:05 07/28/20 21:05 07/28/20 21:05 07/28/20 21:05 07/28/20 21:05 - Notes Notes: GENERAL: Alert, interacts well. No acute distress. HEAD: Normocephalic, atraumatic. EYES: Pupils equal, round, and reactive to light. Extraocular movements intact. ENT: Oral mucosa moist, tongue midline. Oropharynx unremarkable. Airway patent NECK: Full range of motion. Supple. Trachea midline. No lymphadenopathy. LUNGS: Clear to auscultation bilaterally, no wheezes, rales, or rhonchi. No respiratory distress. No signs of trauma. HEART: Regular rate and rhythm. No murmur ABDOMEN: Soft, non-tender. Non-distended. Bowel sounds present in all 4 quadrants. GENITOURINARY: Deferred EXTREMITIES: Swelling and tenderness over the general left wrist, range of motion of fingers intact, sensation and cap refill intact, radial pulse intact. Elbow, shoulder exam unremarkable. Remaining extremities unremarkable with no signs of trauma. BACK: no cervical, thoracic, lumbar midline tenderness. No signs of trauma. No saddle anesthesia, normal distal neurovascular exam. Moves all extremities in full range of motion. NEUROLOGICAL: Alert and oriented x3. Normal speech. Cranial nerves II through XII grossly intact. Strength 5/5 in all extremities. PSYCH: Normal affect, normal mood. SKIN: Warm, dry, normal turgor. No rashes or lesions noted. Course - Re-evaluation Re-evalutation: Patient only had CAT scan of the head and neck performed, no acute findings. X- ray shows fracture of the distal radius and ulna but there is no significant angulation or displacement. Patient has normal pulses, sensation, capillary refill. Patient without any other complaints. Laboratory work-up had been ordered in triage, however there was a very long wait for patient to get a room, she is requesting treatment, splinting, and discharge with her son. Patient states she has been faithful with her medications, she has no other bleeding, this was canceled. Patient does agree to follow-up closely with orthopedics and return for any concerning symptoms, I discussed this with patient and son in detail. They state appreciation and agreement. Stable and well-appearing at time of discharge. - Vital Signs Vital signs: Temp Pulse Resp BP Pulse Ox 98.5 F 72 18 142/73 H 96 07/29/20 03:45 07/29/20 03:45 07/29/20 03:45 07/29/20 03:45 07/29/20 03:45 Procedures - Immobilization Left wrist Pre-Proc Neuro Vasc Exam: Normal Immobilizer type: Sugar tong Performed by: PCT Post-Proc Neuro Vasc Exam: Normal Alignment checked and good: Yes Discharge - Discharge Clinical Impression: Left wrist fracture Qualifiers: Encounter type: initial encounter Fracture type: closed Qualified Code(s): S62.102A - Fracture of unspecified carpal bone, left wrist, initial encounter for closed fracture Fall Qualifiers: Encounter type: initial encounter Qualified Code(s): W19.XXXA - Unspecified fa ll, initial encounter Condition: Stable Disposition: HOME, SELF-CARE Additional Instructions: Your wrist is broken into bones in the radius and ulna. Please wear the splint, call the orthopedic surgeon tomorrow for close follow-up and additional management. You can take the pain medication if needed, if you do also take the MiraLAX stool softener to avoid constipation. Return for any concerning symptoms including severe worsening swelling or pain or any other concerning symptoms. Prescriptions: Polyethylene Glycol 3350 [Miralax Powder 17 gm/Packet] 1 packet PO DAILY PRN #1 pkg PRN Reason: Hydrocodone/Acetaminophen [Topsham 5-325 mg Tablet] 1 tab PO Q6H PRN #15 tablet PRN Reason: Referrals: LISA MEAD JR, DO [ACTIVE PROVISIONAL STAFF] - Follow up tomorrow
[2020-07-29] MEDS ORDERED: HYDROCODONE/ACETAMINOPHEN 5-325 MG (6 TAB/ER DISP) PO PRN (03:25)
[2020-07-29 03:48] VITALS: BP 142/73
== END 2020-07-29 03:48 | disposition home or self-care (01) ==
LOC: ER 20:28
DX: S62.102A Fracture of unspecified carpal bone, left wrist, initial encounter for closed fracture (principal); S52.612A Displaced fracture of left ulna styloid process, initial encounter for closed fracture; S52.502A Unspecified fracture of the lower end of left radius, initial encounter for closed fracture; W19.XXXA Unspecified fall, initial encounter; M81.0 Age-related osteoporosis without current pathological fracture; G31.1 Senile degeneration of brain, not elsewhere classified; I48.91 Unspecified atrial fibrillation; I11.0 Hypertensive heart disease with heart failure; I50.9 Heart failure, unspecified; F32.9 Major depressive disorder, single episode, unspecified; F41.9 Anxiety disorder, unspecified; Z79.01 Long term (current) use of anticoagulants; Z79.899 Other long term (current) drug therapy; Z79.82 Long term (current) use of aspirin; Z88.8 Allergy status to other drugs, medicaments and biological substances; Z95.2 Presence of prosthetic heart valve; Z95.1 Presence of aortocoronary bypass graft
CPT/HCPCS: 29125; 99284; 73110; 70450; 72125; A9270 ×3; S0119